=== PATIENT | female | born 1995 | race Caucasian/White ===

== ENCOUNTER 2016-06-19 08:00 | Outpatient (CLI) | payer MEDICAID | END 2016-06-19 23:59 | disposition home or self-care (01) | DX: Z36 Encounter for antenatal screening of mother (principal) ==

== ENCOUNTER 2016-06-30 11:49 | Outpatient (CLI) | payer MEDICAID | END 2016-06-30 14:48 | disposition home or self-care (01) | DX: O36.62X0 Maternal care for excessive fetal growth, second trimester, not applicable or unspecified (principal); O99.89 Other specified diseases and conditions complicating pregnancy, childbirth and the puerperium; R52 Pain, unspecified; Z3A.38 38 weeks gestation of pregnancy ==

== ENCOUNTER 2016-07-03 13:59 | Outpatient (CLI) | payer MEDICAID | END 2016-07-03 15:30 | disposition home or self-care (01) | DX: O16.3 Unspecified maternal hypertension, third trimester (principal); Z3A.38 38 weeks gestation of pregnancy ==

== ENCOUNTER 2016-07-08 23:02 | Outpatient (CLI) | payer MEDICAID | END 2016-07-09 00:20 | disposition home or self-care (01) | DX: O62.2 Other uterine inertia (principal); Z3A.39 39 weeks gestation of pregnancy ==

== ENCOUNTER 2016-07-13 03:57 | Inpatient (IN) | payer MEDICAID ==
[2016-07-13] MEDS ORDERED: ONDANSETRON 4 MG/2 ML VIAL IVP PRN ×2 (04:49→10:11)
[2016-07-13] MEDS ORDERED: fentaNYL 100 MCG/2 ML VIAL IVP PRN (04:49)
[2016-07-13] MEDS ORDERED: LACTATED RINGERS 1,000 ML IV SCH (05:00)
[2016-07-13] MEDS ORDERED: PENICILLIN G POTASSIUM 5,000,000 UNIT in SODIUM CHLORIDE 0.9% MINIBAG 100 ML IV SCH (05:45)
[2016-07-13] MEDS ORDERED: SODIUM CHLORIDE FLUSH 0.9% 10 ML SYRINGE IVP ONE ×3 (06:54→23:19)
[2016-07-13] MEDS ORDERED: SUFENTA/BUPIV 0.4 MCG/0.0625% 150 ML EP ONE (09:59)
[2016-07-13] MEDS ORDERED: NALOXONE 0.4 MG/ML VIAL IVP PRN (10:11)
[2016-07-13] MEDS ORDERED: NALBUPHINE 20 MG/ML AMP IVP PRN (10:11)
[2016-07-13] MEDS ORDERED: SUFENTA/BUPIV 0.4 MCG/0.0625% EPIDURAL 150 ML EP PRN (10:11)
[2016-07-13] MEDS ORDERED: METOCLOPRAMIDE 10 MG/2 ML VIAL IVP PRN (10:11)
[2016-07-13] MEDS ORDERED: diphenhydrAMINE INJ 50 MG/ML VIAL IVP PRN (10:11)
[2016-07-13] MEDS ORDERED: LACTATED RINGERS 500 ML IV ONE (10:11)
[2016-07-13] MEDS ORDERED: ePHEDrine 50 MG/ML AMP IVP PRN (10:11)
[2016-07-13] MEDS ORDERED: SUFENTA/BUPIV 0.4 MCG/0.0625% 150 ML EP PRN (10:26)
[2016-07-13] MEDS: PENICILLIN G POTASSIUM 2,500,000 UNIT in SODIUM CHLORIDE 0.9% 100ML 100 ML IV SCH ×3 (11:22→19:45)
[2016-07-13] MEDS ORDERED: OXYTOCIN/LACTATED RINGERS 250 ML IV SCH (12:00)
[2016-07-13] MEDS ORDERED: LIDOCAINE 1% 50 ML MDV ONE (16:11)
[2016-07-13] MEDS ORDERED: diphenhydrAMINE 25 MG CAPSULE PO PRN (20:34)
[2016-07-13] MEDS ORDERED: HYDROcod/ACETAM 5/325 MG TABLET PO PRN (20:34)
[2016-07-13] MEDS ORDERED: HYDROCORTISONE/PRAMOXINE 10 GM PR PRN (20:34)
[2016-07-13] MEDS ORDERED: MEASLES,MUMPS & RUBELLA VACC 0.5 ML VIAL SUBQ ONE (20:34)
[2016-07-13] MEDS ORDERED: OXYTOCIN/LACTATED RINGERS 250 ML IV ONE (20:34)
[2016-07-13] MEDS: IBUPROFEN 600 MG TABLET PO SCH (21:18)
[2016-07-13] MEDS: DOCUSATE SODIUM 100 MG CAPSULE PO SCH (21:18)
[2016-07-14] MEDS: IBUPROFEN 600 MG TABLET PO SCH ×4 (03:38→21:40)
[2016-07-14] MEDS: DOCUSATE SODIUM 100 MG CAPSULE PO SCH ×2 (09:37→21:41)
[2016-07-15] MEDS: IBUPROFEN 600 MG TABLET PO SCH ×2 (03:30→09:11)
[2016-07-15] MEDS: DOCUSATE SODIUM 100 MG CAPSULE PO SCH (09:11)
== END 2016-07-15 11:20 | disposition home or self-care (01) | DRG 775 ==
PROC: 10E0XZZ Delivery of Products of Conception, External Approach (ICD-10-PCS; principal; 2016-07-13)
PROC: 10907ZC Drainage of Amniotic Fluid, Therapeutic from Products of Conception, Via Natural or Artificial Opening (ICD-10-PCS; 2016-07-13)
DX: O99.824 Streptococcus B carrier state complicating childbirth (principal); Z68.42 Body mass index [BMI] 45.0-49.9, adult; O99.214 Obesity complicating childbirth; E66.01 Morbid (severe) obesity due to excess calories; Z37.0 Single live birth; Z3A.40 40 weeks gestation of pregnancy; O99.344 Other mental disorders complicating childbirth; F43.10 Post-traumatic stress disorder, unspecified; F41.9 Anxiety disorder, unspecified; O26.03 Excessive weight gain in pregnancy, third trimester; F32.9 Major depressive disorder, single episode, unspecified; Z87.891 Personal history of nicotine dependence; Z88.2 Allergy status to sulfonamides; O13.4 Gestational [pregnancy-induced] hypertension without significant proteinuria, complicating childbirth

== ENCOUNTER 2018-09-22 08:00 | Outpatient (CLI) | payer MEDICAID | END 2018-09-22 23:59 | disposition home or self-care (01) | LOC: LAB.WCP 08:00 | PROVIDERS: ATTEND Family Medicine | DX: Z33.1 Pregnant state, incidental (principal) | CPT/HCPCS: 36415; 84702 ==

== ENCOUNTER 2018-09-22 08:00 | Outpatient (CLI) | payer MEDICAID | END 2018-09-22 23:59 | disposition home or self-care (01) | LOC: LAB.R 08:00 | PROVIDERS: ATTEND Family Medicine | DX: N39.0 Urinary tract infection, site not specified (principal); Z33.1 Pregnant state, incidental | CPT/HCPCS: 36415; 84702; 87086 ==

== ENCOUNTER 2018-09-24 10:16 | Outpatient (CLI) | payer MEDICAID ==
--- NOTE | 2018-09-24 12:12 | Ultrasound Report ---
Reason: , PELVIC PERINEAL PAIN, R/O ECTOPIC Procedure Date: 09/24/2018 Accession Number: [id number] / [id number] Procedure: US - OB First Trimester CPT Code: FULL RESULT: EXAM: FIRST TRIMESTER OBSTETRIC ULTRASOUND (Less than 11 weeks) EXAM DATE: 09/24/2018 11:44 AM. CLINICAL HISTORY: , pelvic perineal pain, rule out ectopic. LMP: 08/08/2018. COMPARISONS: OB F/U OR REPEAT 06/30/2016 1:52 PM OB F/U OR REPEAT 03/26/2016 9:33 AM. TECHNIQUE: Transabdominal and transvaginal ultrasound examination with static image documentation. CLINICAL DATES: EGA 6 weeks 5 days with DAREN 05/15/2019 based on LMP. ASSESSMENT: Gestational Sac: Single intrauterine. Mean gestational sac diameter: 6.8 mm = less than 5 weeks. Embryo: CRL (crown-rump length): Not seen Cardiac activity: Not seen Yolk sac: 1.5 mm. Amniotic fluid: Not accurately assessed at this gestational age. Early placenta: Not visible at this gestational age. Other: No perigestational fluid collection demonstrated. MATERNAL STRUCTURES: Uterus: Anteverted. Unremarkable. Cervix: Closed. Right Ovary/Adnexa: The ovary measures 4.6 x 2.0 x 3.9 cm, volume 18.3 cc. Within the right ovary is a cyst with thick rim, possibly corpus luteal cyst. Near the ovary but separate from the ovary is a 10.9 x 5.9 x 8.9 cm simple appearing cyst, adnexal. Left Ovary/Adnexa: The ovary measures 4.0 x 2.2 x 3.2 cm, volume 14.7 cc. Unremarkable. Free Fluid: None. Other: None. IMPRESSION: 1. of unknown location. Intrauterine fluid collection, which could represent a gestational sac, cyst, or focal fluid. If this is a gestational sac, size would correspond to gestational age of less than 5 weeks. Recommend close clinical follow-up and correlation with serial beta hCG, and follow-up ultrasound if indicated. 2. Large simple appearing right adnexal cyst, reportedly known. RADIA
== END 2018-09-24 10:17 | disposition home or self-care (01) ==
LOC: DI 10:16
PROVIDERS: ATTEND Family Medicine
DX: R10.2 Pelvic and perineal pain (principal); N94.89 Other specified conditions associated with female genital organs and menstrual cycle
CPT/HCPCS: 76801

== ENCOUNTER 2018-09-29 08:00 | Outpatient (CLI) | payer MEDICAID | END 2018-09-29 08:01 | disposition home or self-care (01) | LOC: LAB.WCP 08:00 | PROVIDERS: ATTEND Family Medicine | DX: Z33.1 Pregnant state, incidental (principal) | CPT/HCPCS: 36415; 84702 ==

== ENCOUNTER 2018-10-12 08:00 | Outpatient (CLI) | payer MEDICAID ==
[2018-10-12 16:54] LABS: BILIRUBIN,URINE NEGATIVE (NEGATIVE); GLUCOSE, URINE (UA) NEGATIVE (NEGATIVE); KETONES,URINE (UA) NEGATIVE (NEGATIVE); LEUKOCYTE ESTERASE, URINE SMALL (NEGATIVE); NITRITE,URINE NEGATIVE (NEGATIVE); OCCULT BLOOD,URINE NEGATIVE (NEGATIVE); PH,URINE 6.5 PH (5.0-7.5); PROTEIN,URINE NEGATIVE (NEGATIVE); UROBILINOGEN,URINE 0.2 (NORMAL) E.U./dL (NORMAL)
[2018-10-12 16:59] LABS: CLARITY,URINE CLEAR (CLEAR)
[2018-10-12 17:03] LABS: BACTERIA,URINE Rare /HPF (None Seen); RBC,URINE None Seen /HPF (0-5); SQUAMOUS EPITHELIAL CELL,UR MOD Squamous (<= Few)
== END 2018-10-12 23:59 | disposition home or self-care (01) ==
LOC: LAB.R 08:00
PROVIDERS: ATTEND Obstetrics & Gynecology
DX: Z34.90 Encounter for supervision of normal pregnancy, unspecified, unspecified trimester (principal)
CPT/HCPCS: 81001; 87086

== ENCOUNTER 2018-10-19 17:11 | Outpatient (CLI) | payer MEDICAID ==
--- NOTE | 2018-10-20 17:25 | Ultrasound Report ---
Reason: UTERINE SIZE DATE DISCREPANCY,ANTEPARTUM,UNSPECIFI Procedure Date: 10/19/2018 Accession Number: [id number] / [id number] Procedure: US - OB First Trimester CPT Code: FULL RESULT: EXAM: FIRST TRIMESTER OBSTETRIC ULTRASOUND (Less than 11 weeks) EXAM DATE: 10/19/2018 05:19 PM. CLINICAL HISTORY: Uterine size/date discrepancy, antepartum, unspecified. LMP: 08/08/2018, 10 weeks 2 days. COMPARISONS: OB FIRST TRIMESTER 09/24/2018 10:48 AM OB F/U OR REPEAT 06/30/2016 1:52 PM. TECHNIQUE: Transabdominal and transvaginal ultrasound examination with static image documentation. FINDINGS: Gestational Sac: An intrauterine fluid-filled sac contains both an embryo and yolk sac. Embryo: CRL (crown-rump length) measures 20 mm corresponding to an estimated gestational age of 8 weeks 3 days. Heart Rate: 171 beats per minute. Placenta: Not visible at this gestational age. Amniotic fluid: Not accurately assessed at this gestational age. Uterus: Unremarkable anteverted appearance. Cervix: Closed. Right Ovary: Volume 279 cc. Normal echotexture and blood flow. Right adnexal cystic mass again noted which appears grossly simple, 11.2 x 6.2 x 7.9 cm. No thick vascular nodules or septations seen. Blood flow documented to the adjacent normal-appearing ovarian parenchyma. Left Ovary: Volume 7 cc. Normal echotexture and blood flow. Free Fluid: None. Other: None. IMPRESSION: 1. Single live intrauterine at 8 weeks 3 days by crown-rump length -- for an estimated delivery date of 05/28/2019. 2. Persistent large 11 cm right adnexal cyst. This can be followed up with on future obstetric scans. RADIA
== END 2018-10-19 17:12 | disposition home or self-care (01) ==
LOC: DI 17:11
PROVIDERS: ATTEND Obstetrics & Gynecology
DX: O26.849 Uterine size-date discrepancy, unspecified trimester (principal); O34.81 Maternal care for other abnormalities of pelvic organs, first trimester; N94.89 Other specified conditions associated with female genital organs and menstrual cycle; Z3A.08 8 weeks gestation of pregnancy
CPT/HCPCS: 76801; 76817

== ENCOUNTER 2019-01-13 13:45 | Outpatient (CLI) | payer MEDICAID ==
--- NOTE | 2019-01-18 09:55 | Ultrasound Report ---
Reason: ENCOUNTER FOR OTHER SPECIFIED SCREENING Procedure Date: 01/13/2019 Accession Number: [id number] / [id number] Procedure: US - OB Detailed Eval CPT Code: FULL RESULT: EXAM: COMPLETE OBSTETRICAL ULTRASOUND EXAM DATE: 01/13/2019 04:27 PM. CLINICAL HISTORY: anatomic survey. COMPARISON: OB DETAILED EVAL 02/26/2016 12:55 PM OB FIRST TRIMESTER 10/19/2018 5:19 PM OB FIRST TRIMESTER 09/24/2018 10:48 AM. TECHNIQUE: Real-time sonographic evaluation of the fetus performed by the glue mill operator. Multiple medical customer service representative static images were saved for review. DATING: Established EGA 20 weeks 5 days with DAREN 05/28/2019 based on ultrasound of 10/19/2018. EGA 20 weeks 3 days with DAREN 05/30/2019 based on the current ultrasound. GENERAL EVALUATION: Chopra . Cardiac activity: 144 bpm. movement: Present Presentation: Cephalic. Placenta: Anterior position. No evidence for previa. Umbilical cord: 3 vessel cord. Central placental cord origin. Amniotic fluid: Subjectively normal. MVP 5 cm. BIOMETRY Bi-Parietal Diameter (BPD): 4.8 cm, 20 weeks 4 days Head Circumference (HC): 18.5 cm, 20 weeks 6 days Abdominal Circumference (AC): 15.2 cm, 20 weeks 3 days Femur Length (FL): 3.5 cm, 21 weeks 1 day Estimated Weight: 374 g, 47th percentile for 20 weeks 5 days. ANATOMY Assessment of anatomy is limited by position and maternal body habitus. The intracranial structures, profile, 4 chamber heart, stomach, abdominal wall and cord insertion, diaphragm, kidneys, bladder, and extremities were seen. Grossly no abnormalities are identified. Detailed assessment of facial structures, spine, and outflow tracts not well seen. Suggest follow-up ultrasound in 2-3 weeks for reassessment. MATERNAL STRUCTURES Uterus: Unremarkable. Cervix: Long and closed. Transabdominal length 4.3 cm. Right ovary/adnexa: 11.6 x 5 x 9.7 cm cyst present, previously noted. Left ovary/adnexa: Unremarkable. Free fluid: None. IMPRESSION: 1. Chopra intrauterine with gestational age 20 weeks 5 days based on ultrasound of 10/19/2018.. 2. Estimated weight is within expected limits for assigned dating. 3. Limited anatomic survey. Suggest follow-up ultrasound in 2-3 weeks as detailed above. RADIA
== END 2019-01-13 13:46 | disposition home or self-care (01) ==
LOC: DI 13:45
PROVIDERS: ATTEND Obstetrics & Gynecology
DX: Z34.90 Encounter for supervision of normal pregnancy, unspecified, unspecified trimester (principal)
CPT/HCPCS: 76811

== ENCOUNTER 2019-02-05 11:02 | Outpatient (CLI) | payer MEDICAID ==
--- NOTE | 2019-02-07 10:13 | Ultrasound Report ---
Reason: SUPERV OF NORMAL , INCOMP FAS Procedure Date: 02/05/2019 Accession Number: [id number] / [id number] Procedure: US - OB F/U or Repeat CPT Code: FULL RESULT: EXAM: FOLLOW-UP OBSTETRICAL ULTRASOUND EXAM DATE: 02/05/2019 12:13 PM. CLINICAL HISTORY: SUPERV OF NORMAL , INCOMP FAS. COMPARISON: OB F/U OR REPEAT 06/30/2016 1:52 PM OB DETAILED EVAL 01/13/2019 2:32 PM. TECHNIQUE: Real-time sonographic evaluation of the fetus performed by the web assistant. Additional transvaginal imaging to more accurately evaluate cervical length/placental position/etc. Multiple equal opportunity representative static images were saved for review. DATING: Established EGA 24 weeks 0 days with DAREN 05/28/2019 based on stated dating. GENERAL EVALUATION Chopra . Cardiac activity: 145 bpm. movement: Visualized. Presentation: Cephalic. Placenta: Anterior position. Amniotic fluid: Normal. MONIQUE 11.0 cm. MVP 3.5 cm. ANATOMY The nose lips, spine, LVOT and RVOT are visualized and unremarkable MATERNAL STRUCTURES Right ovarian cyst 10.6 x 7.4 x 8.9 cm again visualized previously 11.6 x 5 x 9.7 cm IMPRESSION: 1. Hcopra live intrauterine with gestational age 24 weeks 0 days based on stated dating. 2. Follow-up shows normal nose and lips, spine, LVOT and RVOT 3. Right ovarian cyst 10.6 cm again visualized RADIA
== END 2019-02-05 11:03 | disposition home or self-care (01) ==
LOC: DI 11:02
PROVIDERS: ATTEND Obstetrics & Gynecology
DX: O34.82 Maternal care for other abnormalities of pelvic organs, second trimester (principal); N83.201 Unspecified ovarian cyst, right side; Z3A.24 24 weeks gestation of pregnancy
CPT/HCPCS: 76816

== ENCOUNTER 2019-03-10 11:26 | Outpatient (CLI) | payer MEDICAID ==
--- NOTE | 2019-03-10 18:00 | Ultrasound Report ---
Reason: UTERINE SIZE DATE DISCREPANCY ANTEPARTUM Procedure Date: 03/10/2019 Accession Number: [id number] / [id number] Procedure: US - OB F/U or Repeat CPT Code: FULL RESULT: EXAM: FOLLOW-UP OBSTETRICAL ULTRASOUND EXAM DATE: 03/10/2019 12:42 PM. CLINICAL HISTORY: UTERINE SIZE DATE DISCREPANCY ANTEPARTUM. COMPARISON: OB F/U OR REPEAT 02/05/2019 11:05 AM OB FIRST TRIMESTER 10/19/2018 5:19 PM OB DETAILED EVAL 01/13/2019 2:32 PM. TECHNIQUE: Real-time sonographic evaluation of the fetus performed by the manager federal. Multiple outbound call center representative static images were saved for review. DATING: Established EGA 28 weeks 5 days with DRAEN 05/28/2019 based on stated dating and first ultrasound of 10/19/2018. EGA 28 weeks 6 days with DAREN 05/27/2019 based on the current ultrasound. GENERAL EVALUATION Chopra . Cardiac activity: 131 bpm. movement: Present Presentation: Cephalic. Placenta: Anterior position. Amniotic fluid: Normal. MONIQUE 12.1 cm. MVP 4.1 cm. BIOMETRY Bi-Parietal Diameter (BPD): 7.3 cm, 29 weeks 1 day Head Circumference (HC): 26.9 cm, 29 weeks 3 days Abdominal Circumference (AC): 24.6 cm, 28 weeks 6 days Femur Length (FL): 5.2 cm, 28 weeks 0 days Estimated Weight: 1260 g, 34th percentile for 28 weeks 5 days. ANATOMY Not assessed today MATERNAL STRUCTURES Cervix 3.8 cm. IMPRESSION: 1. Chopra live intrauterine with gestational age 28 weeks 5 days based on first ultrasound. 2. Estimated weight is within expected limits for assigned dating. 3. Normal interval growth compared to 02/05/2019. RADIA
== END 2019-03-10 11:27 | disposition home or self-care (01) ==
LOC: DI 11:26
PROVIDERS: ATTEND Obstetrics & Gynecology
DX: O26.843 Uterine size-date discrepancy, third trimester (principal); Z3A.28 28 weeks gestation of pregnancy
CPT/HCPCS: 76816

== ENCOUNTER 2019-05-05 08:00 | Outpatient (CLI) | payer MEDICAID ==
[2019-05-06 19:45] LABS: TRICHOMONAS VAGINALIS DNA NEGATIVE (NEGATIVE)
== END 2019-05-05 23:59 | disposition home or self-care (01) ==
LOC: LAB.R 08:00
PROVIDERS: ATTEND Obstetrics & Gynecology
DX: Z36.89 Encounter for other specified antenatal screening (principal)
CPT/HCPCS: 87491; 87591; 87661; 87797

== ENCOUNTER 2019-05-13 10:52 | Outpatient (CLI) | payer MEDICAID ==
[2019-05-13 11:40] VITALS: BP 144/82
--- NOTE | 2019-05-25 12:03 | PROCEDURE REPORT ---
- HPI Current EDU 05/28/19 Gestation 37 Weeks and 6 Days 2 Para 1 Vital Signs Temperature 36.7 C 05/13/19 11:10 Heart Rate 111 H 05/13/19 11:10 Respiratory Rate 18 05/13/19 11:10 Blood Pressure 152/84 H 05/13/19 11:10 O2 Saturation 99 05/13/19 11:10 Temperature 36.7 C 05/13/19 11:10 Heart Rate 111 H 05/13/19 11:10 Respiratory Rate 18 05/13/19 11:10 Blood Pressure 144/82 H 05/13/19 11:40 O2 Saturation 99 05/13/19 11:10 - NST Procedure NST Procedure Start Date 05/13/19 Start Time 11:00 Stop Time 12:20 Vibroacoustic Stimulation Used No Patient States Movement Yes - Results and Plan Findings/Impression: reactive NST Plan: [facility]
== END 2019-05-13 12:25 | disposition home or self-care (01) ==
LOC: WFO 10:52 → FBP 10:59 → WFO 12:25
PROVIDERS: ATTEND Obstetrics & Gynecology
DX: O26.853 Spotting complicating pregnancy, third trimester (principal); Z3A.37 37 weeks gestation of pregnancy
CPT/HCPCS: 59025

== ENCOUNTER 2019-05-14 06:27 | Inpatient (IN) | payer MEDICAID ==
[2019-05-14] MEDS ORDERED: SODIUM CHLORIDE FLUSH 0.9% 10 ML SYRINGE IVP PRN ×2 (08:09→08:19)
[2019-05-14] MEDS ORDERED: AMPICILLIN 2 GM in SODIUM CHLORIDE 0.9% MINIBAG 100 ML IV ONE (08:19)
--- NOTE | 2019-05-14 08:27 | HISTORY & PHYSICAL EXAMINATION ---
Chief Complaint - Chief Complaint Chief Complaint: 23yo at 39+5 with SROM, early labor History of Present Illness - History of Present Illness HPI Comment/Other: 23yo at 39+5 weeks A+ GBS + who presents with contractions and SROM of clear fluid at 0530 today. Denied bleeding, n/v/f/c or dysuria, reports normal activity. complicated by maternal obesity, mild anemia, depression/anxiety PN labs: Rubella non-immune VDRL/HIVHep C NR Glucola 119 (early>>refused third trimester screen) GC/chlam neg History - Past Medical History Respiratory: reports: None Neuro: reports: None Endocrine/Autoimmune: reports: None GI: reports: None QUILT SEWER: reports: Ovarian cysts : reports: None Psych: reports: Depression, Anxiety MRSA Hx?: Yes - Family & Social History Living arrangement: At home Living Situation: With spouse/s.o. - Substance History Use: Uses substance without health or social issues: NONE - POLST Patient has POLST: No POLST Status: Full Code Meds/Allgy - Home Medications Home Medications: Ambulatory Orders Medication Instructions Recorded Confirmed Pnv No.95/Ferrous Fum/Folic AC 1 05/14/19 [ Formula Tablet] - Allergies Allergies/Adverse Reactions: Allergies Allergy/AdvReac Type Severity Reaction Status Date / Time Sulfa (Sulfonamide Allergy Intermediate Hives Verified 05/14/19 08:36 Antibiotics) Review of Systems - All Other Systems All Other Systems: reports: Other (Neg except as noted above) Exam - Vital Signs Vital Signs: Vital Signs x48h Temp Pulse Resp BP Pulse Ox 05/14/19 06:50 145/75 H 05/14/19 06:44 98.1 F 112 H 22 150/83 H 99 - Physical Exam General Appearance: positive: Mild distress Neck: positive: Nml inspection Respiratory: positive: Breath sounds nml Cardiovascular: positive: Regular rate & rhythm, No murmur Abdomen: positive: Non-tender, Other (Gravid, obese, S=D) Extremities: positive: Pedal edema (Trace) Neurologic/Psychiatric: positive: Oriented x3 Comments/Other: Vertex by scan Copious clear fluid on spec exam. Cervix visually partially effaced/ 3-4cm FH initially category 1> subsequently incomplete tracing, suspect maternal. Conclusion/Plan - Other Other Results/Comments: 23yo at 39+5 GBS+ A+ with labor SROM. Vertex by scan Rubella non-immune Planning nitrous only for labor. Undecided about contraception. CBC, T&S Ampicillin Expect
[2019-05-14 08:58] LABS: BASOPHILS # (AUTO) 0.1 10^3/uL (0.0-0.1); BASOPHILS % (AUTO) 0.3 %; EOSINOPHILS # (AUTO) 0.1 10^3/uL (0.0-0.7); EOSINOPHILS % (AUTO) 0.5 %; HGB - HEMOGLOBIN 11.5 g/dL (12.0-16.0); LYMPHOCYTES # (AUTO) 2.4 10^3/uL (1.5-3.5); LYMPHOCYTES % (AUTO) 9.1 %; MEAN CORPUSCULAR HEMOGLOBIN 30.1 pg (27.0-31.0); MEAN CORPUSCULAR VOLUME 91.1 fL (81.0-99.0); MEAN PLATELET VOLUME 11.2 fL (7.9-10.8); MONOCYTES % (AUTO) 7.7 %; NEUTROPHILS % (AUTO) 81.2 %; PLT - PLATELET COUNT 302 10^3/uL (130-450); RED BLOOD COUNT 3.82 10^6/uL (4.20-5.40); RED CELL DISTRIBUTION WIDTH 13.6 % (12.0-15.0); WHITE BLOOD COUNT 25.8 x10^3/uL (4.8-10.8)
[2019-05-14] MEDS ORDERED: LACTATED RINGERS 1,000 ML IV SCH (09:00)
[2019-05-14] MEDS ORDERED: SODIUM CHLORIDE FLUSH 0.9% 10 ML SYRINGE IVP SCH ×2 (09:00)
[2019-05-14] MEDS: LACTATED RINGERS 1,000 ML IV SCH ×2 (09:06→10:50)
[2019-05-14 09:30] LABS: PLATELET MORPHOLOGY NORMAL APPEARANCE (NORMAL)
[2019-05-14 09:31] LABS: PLATELET ESTIMATE, MANUAL NORMAL (130-450,000) (NORMAL); RBC MORPHOLOGY (MULTIPLE) NORMAL APPEARANCE (NORMAL)
[2019-05-14] MEDS ORDERED: ROPIVACAINE 0.2% 200 MG/100 ML BAG EP ONE (09:48)
--- NOTE | 2019-05-14 09:59 | PROVIDER PROGRESS NOTE ---
Subjective - Prog Note Date Prog Note Date: 05/14/19 Prog Note Time: 09:58 - Subjective Subjective: Very uncomfortable, requesting epidural. Fluid bolus initiated. Will call anrsthesia. FH stable, pt otherwise stable. Objective - Vital Signs/Intake & Output Vital Signs: Vital Signs x48h Temp Pulse Resp BP Pulse Ox 05/14/19 06:50 145/75 H 05/14/19 06:44 98.1 F 112 H 22 150/83 H 99 - Lab Results Fish Bones: 05/14/19 08:49 Other Labs: Lab Results x24hrs 05/14/19 05/14/19 Range/Units 08:49 07:35 WBC 25.8 H (4.8-10.8) x10^3/uL RBC 3.82 L (4.20-5.40) 10^6/uL Hgb 11.5 L (12.0-16.0) g/dL Hct 34.8 L (37.0-47.0) % MCV 91.1 (81.0-99.0) fL MCH 30.1 (27.0-31.0) pg MCHC 33.0 (32.0-36.0) g/dL RDW 13.6 (12.0-15.0) % Plt Count 302 (130-450) 10^3/uL MPV 11.2 H (7.9-10.8) fL Neut # (Auto) 21.0 H (1.5-6.6) 10^3/uL Lymph # (Auto) 2.4 (1.5-3.5) 10^3/uL [place] # (Auto) 2.0 H (0.0-1.0) 10^3/uL Eos # (Auto) 0.1 (0.0-0.7) 10^3/uL Baso # (Auto) 0.1 (0.0-0.1) 10^3/uL Absolute Nucleated RBC 0.00 x10^3/uL Nucleated RBC % 0.0 /100WBC Manual Slide Review Indicated Platelet Estimate NORMAL (130-450,000) (NORMAL) Platelet Morphology NORMAL APPEARANCE (NORMAL) RBC Morph Micro Appear NORMAL APPEARANCE (NORMAL) Blood Type A POSITIVE Antibody Screen NEGATIVE
--- NOTE | 2019-05-14 10:21 | PROVIDER PROGRESS NOTE ---
Subjective - Prog Note Date Prog Note Date: 05/14/19 Prog Note Time: 10:16 - Subjective Subjective: Epidural in place, more comfortable. Flores placed. VSS afeb Category 1 tracing. Contractions not tracing well, seem q2-3 cx 8cm/90/+1 A/P Stable. Good progress. Expect Objective - Vital Signs/Intake & Output Vital Signs: Vital Signs x48h Temp Pulse Resp BP Pulse Ox 05/14/19 06:50 145/75 H 05/14/19 06:44 98.1 F 112 H 22 150/83 H 99 - Lab Results Fish Bones: 05/14/19 08:49 Other Labs: Lab Results x24hrs 05/14/19 05/14/19 Range/Units 08:49 07:35 WBC 25.8 H (4.8-10.8) x10^3/uL RBC 3.82 L (4.20-5.40) 10^6/uL Hgb 11.5 L (12.0-16.0) g/dL Hct 34.8 L (37.0-47.0) % MCV 91.1 (81.0-99.0) fL MCH 30.1 (27.0-31.0) pg MCHC 33.0 (32.0-36.0) g/dL RDW 13.6 (12.0-15.0) % Plt Count 302 (130-450) 10^3/uL MPV 11.2 H (7.9-10.8) fL Neut # (Auto) 21.0 H (1.5-6.6) 10^3/uL Lymph # (Auto) 2.4 (1.5-3.5) 10^3/uL [place] # (Auto) 2.0 H (0.0-1.0) 10^3/uL Eos # (Auto) 0.1 (0.0-0.7) 10^3/uL Baso # (Auto) 0.1 (0.0-0.1) 10^3/uL Absolute Nucleated RBC 0.00 x10^3/uL Nucleated RBC % 0.0 /100WBC Manual Slide Review Indicated Platelet Estimate NORMAL (130-450,000) (NORMAL) Platelet Morphology NORMAL APPEARANCE (NORMAL) RBC Morph Micro Appear NORMAL APPEARANCE (NORMAL) Blood Type A POSITIVE Antibody Screen NEGATIVE
[2019-05-14] MEDS ORDERED: LIDOCAINE-MPF 1% 30 ML VIAL ONE (10:24)
[2019-05-14] MEDS ORDERED: OXYTOCIN/DEXTROSE 5 % 30 UNIT/500 ML BAG IV ONE (10:24)
--- NOTE | 2019-05-14 10:24 | DISCHARGE SUMMARY ---
"Discharge Summary Admit Date: 05/14/19 Discharge Date: 05/15/19 Code Status: Attempt Resuscitation Condition at Discharge: Good Discharge Disposition: 01 Home, Self Care - DIAGNOSES Admission Diagnoses: at 39 5/7 weeks with SROM Morbid obesity Borderline hypertension MMR refused not immune - HPI History of Present Illness: 23yo now 2 who presented in early labor following SROM of clear liquid the day of admission. - CONSULTS | PROCEDURES Procedures: - HOSPITAL COURSE Hospital Course: An epidural was placed and she progressed in labor to full dilation and was delivered of a 3333gm female apgars 7/9 on 05/14. There were no lacerations. EBL 200cc. Of note, she only received one dose of ampicillin for GBS prophylaxis. Her course was notable for one episode of systolic hypertension (154). She remained asymptomatic. Other BPs were in the normal to borderline range 120-130's/70-80's. Lochia was scant, breast feeding with help. She was counseled and is undecided about contraception. She refused vaccines for herself and baby. - ALLERGIES Allergies/Adverse Reactions: Allergies Allergy/AdvReac Type Severity Reaction Status Date / Time Sulfa (Sulfonamide Allergy Intermediate Hives Verified 05/14/19 08:36 Antibiotics) - MEDICATIONS Home Medications: Ambulatory Orders Medication Instructions Recorded Confirmed Pnv No.95/Ferrous Fum/Folic AC 1 05/14/19 [ Formula Tablet] Acetaminophen [Tylenol] 650 mg PO Q6HR PRN tablet 05/15/19 - PHYSICAL EXAM AT DISCHARGE General Appearance: positive: No acute distress Eyes Bilateral: positive: Normal inspection Respiratory: positive: No respiratory distress, Breath sounds nml Cardiovascular: positive: Regular rate & rhythm Abdomen: positive: Non-tender, No distention, Other (Fundus firm below umbilicus) - LABS Result Diagrams: 05/14/19 08:49 - FOLLOW UP Follow Up: Follow up 1 week for blood pressure check and support."
[2019-05-14] MEDS ORDERED: ROPIVACAINE 0.2% 200 MG/100 ML BAG EP PRN (10:25)
[2019-05-14] MEDS ORDERED: NALOXONE 0.4 MG/ML VIAL IVP PRN (10:25)
[2019-05-14] MEDS ORDERED: NALBUPHINE 10 MG/ML AMP IVP PRN (10:25)
[2019-05-14] MEDS ORDERED: LACTATED RINGERS 500 ML IV ONE (10:25)
[2019-05-14] MEDS ORDERED: METOCLOPRAMIDE 10 MG/2 ML VIAL IVP PRN (10:25)
[2019-05-14] MEDS ORDERED: ePHEDrine 50 MG/ML VIAL IVP PRN (10:25)
[2019-05-14] MEDS ORDERED: ONDANSETRON 4 MG/2 ML VIAL IVP PRN (10:25)
[2019-05-14] MEDS ORDERED: diphenhydrAMINE INJ 50 MG/ML VIAL IVP PRN (10:25)
--- NOTE | 2019-05-14 10:29 | ANESTHESIA ---
Pre-Anesthesia VS, & Labs - Diagnosis term , active labor - Procedure labor epidural Vital Signs: Temp Pulse Resp BP Pulse Ox 36.7 C 112 H 22 145/75 H 99 05/14/19 06:44 05/14/19 06:44 05/14/19 06:44 05/14/19 06:50 05/14/19 06:44 Height 5 ft 6 in Weight (kg) 119.748 kg Body Mass Index 41.0 - NPO Other (clears from now until delivery) - Is Patient ?: Yes - Lab Results Current Lab Results: Laboratory Tests 05/14/19 08:49: WBC 25.8 H, RBC 3.82 L, Hgb 11.5 L, Hct 34.8 L, MCV 91.1, MCH 30.1, MCHC 33.0, RDW 13.6, Plt Count 302, MPV 11.2 H, Neut # (Auto) 21.0 H, Lymph # (Auto) 2.4, [place] # (Auto) 2.0 H, Eos # (Auto) 0.1, Baso # (Auto) 0.1, Absolute Nucleated RBC 0.00, Nucleated RBC % 0.0, Manual Slide Review Indicated, Platelet Estimate NORMAL (130-450,000), Platelet Morphology NORMAL APPEARANCE, RBC Morph Micro Appear NORMAL APPEARANCE 05/14/19 07:35: Blood Type A POSITIVE, Antibody Screen NEGATIVE Fish Bones: 05/14/19 08:49 Home Medications and Allergies Home Medications: Ambulatory Orders Pnv No.95/Ferrous Fum/Folic AC [ Formula Tablet] 1 05/14/19 Active Medications Diphenhydramine HCl (Benadryl Inj) 12.5 - 25 mg IVP Q6HR PRN PRN Reason: ITCHING Ephedrine Sulfate () 5 mg IVP Q5M PRN PRN Reason: For SBP<100;give until SBP>100 Lactated Ringer's (Lr) 1,000 mls @ 150 mls/hr IV .Q6H40M ALPESH Last Admin: 05/14/19 09:06 Dose: 150 mls/hr Lactated Ringer's (Lr) 500 mls @ 999 mls/hr IV ONCE ONE Stop: 05/14/19 10:55 Ropivacaine (Naropin 0.2%) 200 mg in 100 mls @ 0 mls/hr EP PRN PRN; Protocol PRN Reason: PAIN Metoclopramide HCl (Reglan Inj) 10 mg IVP Q6HR PRN PRN Reason: Nausea / Vomiting Nalbuphine HCl (Nubain) 2.5 - 5 mg IVP Q4H PRN PRN Reason: ITCHING Naloxone HCl (Narcan) 0.1 mg IVP Q2M PRN PRN Reason: RR<8 Ondansetron HCl (Zofran Inj) 4 mg IVP Q6HR PRN PRN Reason: Nausea / Vomiting Sodium Chloride (Normal Saline Flush 0.9%) 10 ml IVP PRN PRN PRN Reason: NEEDED PER PROVIDER ORDERS Sodium Chloride (Normal Saline Flush 0.9%) 10 ml IVP 0100,0900,1700 ALPESH Pnv No.95/Ferrous Fum/Folic AC [ Formula Tablet] 1 05/14/19 Allergies/Adverse Reactions: Allergies Allergy/AdvReac Type Severity Reaction Status Date / Time Sulfa (Sulfonamide Allergy Intermediate Hives Verified 05/14/19 08:36 Antibiotics) Anes History & Medical History - Anesthetic History Anesthesia Complications: reports: No previous complications - Medical History Cardiovascular: reports: None Pulmonary: reports: None Gastrointestinal: reports: None Urinary: reports: None Neuro: reports: None Endocrine/Autoimmune: reports: None Smoking Status: Former smoker Exam General: Alert Dental: WNL Mallampati classification: II Thyromental Distance: greater than 6 cm Respiratory: Normal breath sounds Cardiovascular: Regular rate Mental/Cognitive Status: Alert/Oriented X3 Plan Anesthesia Type: Epidural Consent for Procedure(s) Verified and Reviewed: Yes Code Status: Attempt Resuscitation ASA classification: 2-Mild systemic disease Is this case an emergency?: No
[2019-05-14] MEDS ORDERED: OXYTOCIN/DEXTROSE 5 % 30 UNIT/500 ML BAG IV PRN (11:50)
--- NOTE | 2019-05-14 12:13 | DELIVERY NOTE ---
Delivery Note - Infant Delivery Method Infant Delivery Method: positive: Spontaneous vaginal delivery - Presentation Presentation: positive: Vertex, MALISSA - left occiput anterior - Nuchal Cord Nuchal Cord: positive: None - Anesthetic Anesthetic Type: - Amniotic Fluid Description Amniotic Fluid Description: positive: Clear - Episiotomy Type Episiotomy Type: positive: None - Laceration Laceration: positive: None - Delivery Outcome Delivery Outcome: positive: Livebirth - [place]: positive: Placed in direct skin contact with mother, Bulb syringe, Stimulated, [place] used [place] sex: positive: Female - Cord Cord: positive: 3 vessels - Placenta Placenta: positive: Intact, Spontaneous - Estimated Blood Loss Estimated Blood Loss (in cc): 200 - Post Delivery Events Post Delivery Events: positive: No post delivery events - Delivery Comments (Free Text/Narrative) Delivery Comments (Free Text/Narrative): of 3333gm female infant apgars 7/9 delivered from MALISSA at 11:58. Spontaneous cry. Placenta delivered with traction at 12:02 intact with normally inserted 3 vessel cord. Normal appearing. No lacerations of upper vagina perineum, rectum. EBL 200cc. I was present and performed the entire procedure.
[2019-05-14] MEDS ORDERED: HYDROCORTISONE 1% CREAM 28 GM TUBE PR PRN (12:16)
[2019-05-14] MEDS ORDERED: ACETAMINOPHEN 325 MG TABLET PO PRN (12:16)
[2019-05-14] MEDS ORDERED: WITCH HAZEL/GLYCERIN 1 PAD TOP PRN (12:16)
[2019-05-14] MEDS ORDERED: IBUPROFEN 600 MG TABLET PO PRN (12:16)
[2019-05-14] MEDS ORDERED: HYDROcod/ACETAM 5/325 MG TABLET PO PRN (12:16)
[2019-05-14] MEDS ORDERED: OXYTOCIN 10 UNIT/ML VIAL IM ONE (12:16)
[2019-05-14] MEDS ORDERED: MEASLES,MUMPS & RUBELLA VACC 0.5 ML VIAL SUBQ ONE (12:16)
[2019-05-14] MEDS ORDERED: diphenhydrAMINE 25 MG CAPSULE PO PRN (12:16)
[2019-05-14] MEDS ORDERED: DOCUSATE SODIUM 100 MG CAPSULE PO SCH (21:00)
[2019-05-15 12:44] VITALS: BP 134/81
--- NOTE | 2019-05-15 13:26 | Discharge Plan ---
Discharge Plan Problem Reviewed?: Yes Disposition: Home, Self Care Condition: Good Diet: Regular Activity Restrictions: Pelvic rest Shower Restrictions: No Driving Restrictions: No Health Concerns: Follow up in one week for blood pressure check No Smoking: If you smoke, Please STOP! Call for help. Follow-up with: Juliana Reza DO [Primary Care Provider] -
--- NOTE | 2019-05-15 13:35 | PROVIDER PROGRESS NOTE ---
Subjective - Prog Note Date Prog Note Date: 05/15/19 Prog Note Time: 13:32 - Subjective Subjective: PPD 1 No complaints. Scant lochia, ambulating, tolerating regular diet. Needing brest feeding support. Undecided about contraception. Counseled re options. VSS afeb BP with single high SBP 154. Otherwise in borderline range. Abd soft, non-tender. Fundus firm below umbilicus. A/P Stable. Counseled re vaccines, still refused. Counseled re LARCs etc. Plan DC today, baby still under obs for GBS not adequately treated. F/U 1 week for BP check and support Objective - Vital Signs/Intake & Output Vital Signs: Vital Signs x48h Temp Pulse Resp BP Pulse Ox 05/15/19 12:43 98.2 F 94 16 134/81 H 99 05/15/19 09:19 99.0 F 98 18 154/76 H 99 Intake & Output: Intake & Output 05/12/19 05/13/19 05/14/19 05/15/19 23:59 23:59 23:59 23:59 Intake Total 1093 Output Total 850 Balance 243 - Lab Results Fish Bones: 05/14/19 08:49
--- NOTE | 2019-05-15 14:36 | Labor Flowsheet ---
Labor Flowsheet Datetime Report Generated by CPN: 05/15/2019 14:35 Datetime: 05/15/2019 12:29 VITAL SIGNS NBP Sys/Lorena/Mean (mmHg): 134 : 81 : 92 Pulse: 94 LaborFlag: Labor Datetime: 05/14/2019 17:28 SpO2 (%): 99 Datetime: 05/14/2019 12:03 Vaginal Exam Comments: spont placenta Datetime: 05/14/2019 12:02 Patient Care Comments: spont placenta Datetime: 05/14/2019 11:58 Comments: female Medication Comments: pitocin bolu started after del of Datetime: 05/14/2019 11:57 MEDICATIONS Pitocin (milliunits): Started @ bolus Datetime: 05/14/2019 11:24 VAGINAL EXAM Dilatation (cm): 10.0 Datetime: 05/14/2019 11:10 PAIN Pain Presence: Intermittent Pain Type: Pressure Pain Assessment Comments: feeling increased pressure but declines VE, wants her to be here first Patient Position/Activity: Left Lateral Datetime: 05/14/2019 11:08 UTERINE ACTIVITY Monitor Mode: External Monitor Interventions for UA: [place] Adjusted Frequency (min): not picking up well, appear to be q 2-3 min Quality: Moderate Pattern: Normal: <= 5 Contractions in 10 Minutes Resting Tone (Palpate): Relaxed ASSESSMENT A Monitor Mode: Rubber Thread Spooler Interventions for FHR: Ultrasound Adjusted FHR Baseline Rate : 130 FHR Baseline Changes: No Baseline Change Variability: Moderate 6-25 bpm Accelerations: None Decelerations: Early Datetime: 05/14/2019 10:53 Contraction Comments: pt comfortable, sleeping Category: Category I Datetime: 05/14/2019 10:24 Pain Location: Perineum Pain Coping: Talking Through Contractions Comfort Measures: Breathing/Relaxation Datetime: 05/14/2019 10:14 Effacement (%): 90 Station: 1 Exam by: Dr. Erber Cervix, Consistency: Soft Datetime: 05/14/2019 10:05 Epidural Procedure Other: Pump Started Datetime: 05/14/2019 09:59 COMMUNICATION Communication: Provider at Bedside Provider Notified (Name): Dr. Erber Datetime: 05/14/2019 09:53 Epidural Procedure: Test Dose Datetime: 05/14/2019 09:50 Anesthesia Comments: local Datetime: 05/14/2019 09:47 PROCEDURE TIME OUT Procedure Verify: Correct Patient Identity; Correct Side and Site are Marked; Accurate Procedure Co nsent Form; Agreement on Procedure to be Done; Correct Patient Position Datetime: 05/14/2019 09:39 ANESTHESIA Anesthesia Plans: Epidural Epidural Positioning: Sitting Datetime: 05/14/2019 08:50 PATIENT CARE Oxygen Method: Room Air Datetime: 05/14/2019 08:45 Antibiotics: Ampicillin IV 2 Gm
== END 2019-05-15 13:30 | disposition home or self-care (01) | DRG 807 ==
LOC: WFO 06:27 → FBP 06:28 → WFO 08:08 → FBP 08:09
PROVIDERS: ADMIT Obstetrics & Gynecology; ATTEND Obstetrics & Gynecology
PROC: 10E0XZZ Delivery of Products of Conception, External Approach (ICD-10-PCS; principal; 2019-05-14)
DX: O99.344 Other mental disorders complicating childbirth (principal); Z37.0 Single live birth; O99.214 Obesity complicating childbirth; E66.01 Morbid (severe) obesity due to excess calories; O99.02 Anemia complicating childbirth; D64.9 Anemia, unspecified; F32.9 Major depressive disorder, single episode, unspecified; F41.9 Anxiety disorder, unspecified; O90.89 Other complications of the puerperium, not elsewhere classified; R03.0 Elevated blood-pressure reading, without diagnosis of hypertension; Z3A.39 39 weeks gestation of pregnancy
CPT/HCPCS: 36415; 85025; 86850; 86900; 86901; A9270; J7120; 99213

== ENCOUNTER 2020-02-05 16:41 | Outpatient (CLI) | payer MEDICAID ==
--- NOTE | 2020-02-06 07:32 | Ultrasound Report ---
PROCEDURE: Pelvic Complete INDICATIONS: H/O OV CYST TECHNIQUE: Real-time transabdominal scanning was performed of the pelvic organs, with image documentation. COMPARISON: First trimester pelvic ultrasound dated 10/19/2018 FINDINGS: Uterus: Uterus is normal in size at 8.5 x 4.1 x 5.1 cm cm. Endometrium measures 8 mm in combined th ickness. Ovaries: The right ovary measures 2.5 x 2.3 x 2.8 cm with a volume of 11.7 mL. The left ovary measur es 4.4 x 2.9 x 2.6 cm with a volume of 17.7 mL. Other: Superior to the uterus and adjacent to the right ovary, there is a large simple appearing cys t measuring 10.0 x 5.2 x 10.1 cm. Previously this cyst measured 11.2 x 6.2 x 7.9 cm on ultrasound fro m 10/19/2018 No free pelvic fluid. Limited scanning through the kidneys shows no hydronephrosis. IMPRESSION: Large simple appearing cyst superior to the uterus and abutting the right ovary measures 10.0 x 5.2 x 10.1 cm. Consider further evaluation with MRI if not previously obtained. Continued follow-up is rec ommended. Reviewed by: Joel Calhoun MD on 02/05/2020 6:23 PM PDT Approved by: Joel Calhoun MD on 02/05/2020 6:23 PM PDT Station ID: [id number]
== END 2020-02-05 16:42 | disposition home or self-care (01) ==
LOC: DI 16:41
PROVIDERS: ATTEND Obstetrics & Gynecology
DX: N83.201 Unspecified ovarian cyst, right side (principal); Z87.42 Personal history of other diseases of the female genital tract
CPT/HCPCS: 76856

== ENCOUNTER 2020-12-16 09:28 | Emergency (ER) | payer MEDICAID ==
[2020-12-16 09:35] VITALS: BP 133/69
[2020-12-16] MEDS ORDERED: LIDOCAINE 1%-EPI 1:100000 20 ML MDV SUBQ STA (10:08)
--- NOTE | 2020-12-16 10:08 | ED Physician Documentation ---
PD HPI LOWER EXT INJURY - Stated complaint Stated Complaint: L KNEE PX - Chief complaint Chief Complaint: Ext Problem - History obtained from History obtained from: Patient, Family - History of Present Illness PD HPI LOW EXT INJURY LOCATION: Left (Woke up yesterday with redness and swelling to the anterior left knee. 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: Ovarian cysts : None HEENT: None Psych: Depression, Post traumatic stress disorder Musculoskeletal: None Derm: None - Past Surgical History Past Surgical History: Yes - Present Medications Home Medications: Ambulatory Orders Medication Instructions Recorded Confirmed Doxycycline Hyclate 100 mg PO BID #14 12/16/20 HYDROcod/ACETAM 5/325 [[place] 5/325] 1 - 2 tab PO Q6H PRN #15 tablet 12/16/20 - Allergies Allergies/Adverse Reactions: Allergies Allergy/AdvReac Type Severity Reaction Status Date / Time Sulfa (Sulfonamide Allergy Intermediate Hives Verified 12/16/20 09:35 Antibiotics) - Social History Does the pt smoke?: No Smoking Status: Never smoker Does the pt drink ETOH?: No Does the pt have substance abuse?: Yes - Immunizations Immunizations are current?: Yes - POLST Patient has POLST: No POLST Status: Full Code PD ED PE NORMAL - Vitals Vital signs reviewed: Yes - General General: Alert and oriented X 3, No acute distress - Extremities Extremities: Other (She has what appears to be septic prepatellar bursitis of the left knee anteriorly with retained range of motion of the joint itself.) - Neuro Neuro: Alert and oriented X 3, Normal speech Results - Vitals Vitals: Vital Signs - 24 hr 12/16/20 09:33 Temperature 36.7 C Heart Rate 107 H Respiratory 16 Rate Blood Pressure 133/69 H O2 Saturation 100 Oxygen O2 Source Room air Procedures - General procedure General procedure: The left knee was prepped and draped, locally infiltrated with lidocaine. #11 blade was used to access the left prepatellar bursa and deloculated. Culture was obtained and quarter inch packing was inserted. Patient tolerated well. 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 That should have decent MRSA coverage. Note that she has a sulfa allergy. I am prescribing a short course of short-acting opioid pain medication for this patient. 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 I have discussed that the opioids are for short term therapy only, and will not be refilled from the ED. Departure - Departure Disposition: 01 Home, Self Care Clinical Impression: Bursitis, prepatellar, left Condition: Good Record reviewed to determine appropriate education?: Yes Instructions: ED Abscess IandD Prescriptions: Doxycycline Hyclate 100 mg PO BID #14 HYDROcod/ACETAM 5/325 [[place] 5/325] 1 - 2 tab PO Q6H PRN #15 tablet PRN Reason: Pain Comments: Follow-up with the orthopedist in 2 to 3 days for recheck and packing removal. Return for new or worsening symptoms. Call Thursday for an appointment. I am prescribing a short course of narcotic pain medication for you. These are potentially dangerous and addictive medications that should be used carefully. These medications may constipate you. Take an vmmx-[id number] stool softener (docusate) twice daily with plenty of water while taking these medications. If you go 24 hours without a bowel movement, take fzot-[id number] miralax, per package instructions. Do not drink or drive while taking these medications. If you received narcotic or sedating medications while in the emergency department, do not drive for 24 hours. Store this medication in a safe, secure place and out of reach of children. It is a violation of federal law to give or sell this medication to another person or to use in a manner other than prescribed. The ED will not refill narcotic prescriptions, including prescriptions lost or stolen. To dispose of unwanted medications: 1. [facility] at [address] in [place] has a medication drop box. They accept prescription medications (in pill form) Thursday through Thursday 9:00 a.m. to 5:00 p.m. 2. The [employer] [place] [employer] accepts prescription medications (in pill form only) for disposal year round. Call for more information. 3. Contact the [facility] for the next [facility] sponsored prescription drug collection event. , [phone], or x2020; Note that many narcotic pain relievers also contain Tylenol/acetaminophen. Please ensure that your total dose of acetaminophen from all sources does not exceed 3 g (3000 mg) per day. We are performing a wound culture, the results should be done in 48-72 hours. If antibiotic change is necessary we will call you. Return if worse in the meantime, especially if you develop increased pain, fevers, cannot keep down the medication. Otherwise follow-up with your physician in approximately 2-3 days.
[2020-12-16] MEDS ORDERED: cephALEXin 250 MG CAPSULE PO STA (10:09)
[2020-12-16] MEDS ORDERED: HYDROcod/ACETAM 5/325 MG TABLET PO STA (10:18)
[2020-12-16] MEDS ORDERED: DOXYCYCLINE 100 MG TABLET PO STA (10:18)
== END 2020-12-16 10:27 | disposition home or self-care (01) ==
LOC: ED 09:28
DX: M70.42 Prepatellar bursitis, left knee (principal)
CPT/HCPCS: 27301; 87070; 87181; 87205; 99283; A9270

== ENCOUNTER 2021-08-06 17:26 | Emergency (ER) | payer MEDICAID ==
[2021-08-06 17:51] LABS: BILIRUBIN,URINE NEGATIVE (NEGATIVE); GLUCOSE, URINE (UA) NEGATIVE (NEGATIVE); KETONES,URINE (UA) NEGATIVE (NEGATIVE); LEUKOCYTE ESTERASE, URINE SMALL (NEGATIVE); NITRITE,URINE NEGATIVE (NEGATIVE); OCCULT BLOOD,URINE LARGE (NEGATIVE); PH,URINE 7.5 PH (5.0-7.5); PROTEIN,URINE 100 mg/dL (NEGATIVE); UROBILINOGEN,URINE 0.2 (NORMAL) E.U./dL (NORMAL)
[2021-08-06 18:02] LABS: BACTERIA,URINE Few /HPF (None Seen); CLARITY,URINE HAZY (CLEAR); HCG UR QUAL NEGATIVE; RBC,URINE TNTC /HPF (0-5); SQUAMOUS EPITHELIAL CELL,UR RARE Squamous (<= Few); WBC,URINE >25 /HPF (0-5)
--- NOTE | 2021-08-06 18:08 | ED Physician Documentation ---
PD HPI FEMALE - Stated complaint Stated Complaint: FEMALE - Chief complaint Chief Complaint: UTI - History obtained from History obtained from: Patient - History of Present Illness Timing - onset: How many days ago (2) Timing - duration: Days (2) Pain level max: 4 Pain level max: 3 Associated symptoms: Dysuria, Urinary frequency - Additional information Additional information: Patient is a 25-year-old female who presents to the emergency department with dysuria and urinary frequency starting 2 days ago. Similar to prior UTIs. Nothing makes it better. Worse with urination. No fevers. No vomiting. Review of Systems Constitutional: denies: Fever, Chills Respiratory: denies: Cough GI: denies: Abdominal Pain, Nausea, Vomiting : reports: Dysuria, Frequency, Hesitancy. 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 : None HEENT: None Psych: Depression, Post traumatic stress disorder Musculoskeletal: None Derm: None - Past Surgical History Past Surgical History: No - Present Medications Home Medications: Ambulatory Orders Medication Instructions Recorded Confirmed Nitrofurantoin [Macrobid] 100 mg PO BID #10 cap 08/06/21 Phenazopyridine HCl [Pyridium] 200 mg PO TID PRN #6 tablet 08/06/21 - Allergies Allergies/Adverse Reactions: Allergies Allergy/AdvReac Type Severity Reaction Status Date / Time Sulfa (Sulfonamide Allergy Intermediate Hives Verified 08/06/21 17:32 Antibiotics) - Social History Does the pt smoke?: No Smoking Status: Former smoker Does the pt drink ETOH?: No Does the pt have substance abuse?: No - Immunizations Immunizations are current?: No Immunizations: Other immun not current - POLST Patient has POLST: No POLST Status: Full Code PD ED PE NORMAL - Vitals Vital signs reviewed: Yes - General General: Alert and oriented X 3, No acute distress, Well developed/nourished - HEENT HEENT: Moist mucous membranes - Neck Neck: Supple, no meningeal sign - Respiratory Respiratory: No respiratory distress, Clear bilaterally - Abdomen Abdomen: Soft, Non tender, Non distended - Back Back: No CVA TTP - Derm Derm: Warm and dry - Neuro Neuro: Alert and oriented X 3 - Psych Psych: Normal mood, Normal affect Results - Vitals Vitals: Vital Signs - 24 hr 08/06/21 17:32 Temperature 36.9 C Heart Rate 108 H Respiratory 16 Rate Blood Pressure 143/82 H O2 Saturation 99 Oxygen O2 Source Room air - Labs Labs: Laboratory Tests 08/06/21 17:42 Urine Color YELLOW Urine Clarity HAZY Urine pH 7.5 Ur Specific [place] 1.020 Urine Protein 100 H Urine Glucose (UA) NEGATIVE Urine Ketones NEGATIVE Urine Occult Blood LARGE H Urine Nitrite NEGATIVE Urine Bilirubin NEGATIVE Urine Urobilinogen 0.2 (NORMAL) Ur Leukocyte Esterase SMALL H Urine RBC TNTC H Urine WBC >25 H Ur Squamous Epith Cells RARE Squamous Urine Bacteria Few Ur Microscopic Review INDICATED Urine Culture Comments INDICATED Urine HCG, Qual NEGATIVE PD MEDICAL DECISION MAKING - ED course Complexity details: considered differential, d/w patient ED course: Patient with a UTI. Will place on antibiotics for home. Patient is well- appearing, nontoxic. Afebrile. No evidence of pyelonephritis. Patient counseled regarding signs and symptoms for which I believe and urgent re- evaluation would be necessary. Patient with good understanding of and agreement to plan and is comfortable going home at this time This document was made in part using voice recognition software. While efforts are made to proofread this document, sound alike and grammatical errors may occur. Departure - Departure Disposition: 01 Home, Self Care Clinical Impression: Urinary tract infection Qualifiers: Urinary tract infection type: acute cystitis Hematuria presence: without hematuria Qualified Code(s): N30.00 - Acute cystitis without hematuria Condition: Good Instructions: ED UTI Cystitis Female Follow-Up: Juliana Reza DO [Primary Care Provider] - As Needed Prescriptions: Nitrofurantoin [Macrobid] 100 mg PO BID #10 cap Phenazopyridine HCl [Pyridium] 200 mg PO TID PRN #6 tablet PRN Reason: dysuria Comments: Your prescriptions were sent to [facility] in [place]. Take all antibiotics until gone. Return if you worsen. Your test is negative
[2021-08-06 18:24] VITALS: BP 135/78
== END 2021-08-06 18:24 | disposition home or self-care (01) ==
LOC: ED 17:26
DX: N30.00 Acute cystitis without hematuria (principal); Z87.891 Personal history of nicotine dependence
CPT/HCPCS: 81001; 81003; 81025; 87077; 87086; 99283

== ENCOUNTER 2021-09-13 09:57 | Outpatient (CLI) | payer MEDICAID ==
[2021-09-13 13:06] LABS: BASOPHILS % (AUTO) 0.4 %; EOSINOPHILS # (AUTO) 0.1 10^3/uL (0.0-0.7); EOSINOPHILS % (AUTO) 1.2 %; HCT - HEMATOCRIT 41.5 % (37.0-47.0); HGB - HEMOGLOBIN 13.4 g/dL (12.0-16.0); LYMPHOCYTES # (AUTO) 1.9 10^3/uL (1.5-3.5); LYMPHOCYTES % (AUTO) 25.2 %; MEAN CORPUSCULAR HEMOGLOBIN 30.5 pg (27.0-31.0); MEAN CORPUSCULAR HGB CONC 32.3 g/dL (32.0-36.0); MEAN CORPUSCULAR VOLUME 94.3 fL (81.0-99.0); MEAN PLATELET VOLUME 10.2 fL (7.9-10.8); MONOCYTES # (AUTO) 0.5 10^3/uL (0.0-1.0); MONOCYTES % (AUTO) 6.3 %; NEUTROPHILS # (AUTO) 4.9 10^3/uL (1.5-6.6); NEUTROPHILS % (AUTO) 66.6 %; PLT - PLATELET COUNT 332 10^3/uL (130-450); WHITE BLOOD COUNT 7.4 x10^3/uL (4.8-10.8)
[2021-09-13 13:26] LABS: ALBUMIN/GLOBULIN RATIO 1.1 (1.0-2.2); ALKALINE PHOSPHATASE 59 IU/L (42-121); ALT ALANINE AMINOTRANSFERASE 18 IU/L (10-60); AST ASPARTATE AMINOTRANSFERASE 15 IU/L (10-42); BILIRUBIN,TOTAL 0.5 mg/dL (0.2-1.0); BUN - BLOOD UREA NITROGEN 14 mg/dL (6-20); CARBON DIOXIDE - CO2 28 mmol/L (21-32); CHLORIDE 101 mmol/L (101-111); CHOLESTEROL 157 mg/dL; CREATININE 0.8 mg/dL (0.4-1.0); GFR - MDRD 87 (>89); GLUCOSE 94 mg/dL (70-100); HDL CHOLESTEROL 53 mg/dL; LDL CHOLESTEROL,CALCULATED 91 mg/dL; LDL/HDL RATIO 1.7 (<4.4); POTASSIUM 4.3 mmol/L (3.5-5.0); SODIUM 138 mmol/L (135-145); TOTAL PROTEIN 7.6 g/dL (6.7-8.2); TRIGLYCERIDES 64 mg/dL; VLDL CHOLESTEROL 13 mg/dL
[2021-09-13 13:29] LABS: THYROID STIMULATING HORMONE 4.2 uIU/mL (0.34-5.60)
[2021-09-13 13:38] LABS: ESTIMATED AVERAGE GLUCOSE 100 mg/dL (70-100); HEMOGLOBIN A1c% 5.1 % (4.27-6.07)
== END 2021-09-13 09:58 | disposition home or self-care (01) ==
LOC: LAB.N 09:57
PROVIDERS: ATTEND Nurse Practitioner
DX: R73.9 Hyperglycemia, unspecified (principal); E28.2 Polycystic ovarian syndrome; E66.9 Obesity, unspecified; Z13.220 Encounter for screening for lipoid disorders
CPT/HCPCS: 36415; 80053; 80061; 83036; 83721; 84443; 85025

== ENCOUNTER 2022-01-13 08:00 | Outpatient (CLI) | payer MEDICAID ==
[2022-01-13 16:07] LABS: BILIRUBIN,URINE NEGATIVE (NEGATIVE); GLUCOSE, URINE (UA) NEGATIVE (NEGATIVE); KETONES,URINE (UA) NEGATIVE (NEGATIVE); LEUKOCYTE ESTERASE, URINE NEGATIVE (NEGATIVE); NITRITE,URINE NEGATIVE (NEGATIVE); OCCULT BLOOD,URINE NEGATIVE (NEGATIVE); PROTEIN,URINE NEGATIVE (NEGATIVE); UROBILINOGEN,URINE 0.2 (NORMAL) E.U./dL (NORMAL)
[2022-01-13 16:24] LABS: BACTERIA,URINE Rare /HPF (None Seen); CLARITY,URINE CLEAR (CLEAR); RBC,URINE None Seen /HPF (0-5); SQUAMOUS EPITHELIAL CELL,UR FEW Squamous (<= Few); WBC,URINE 0-3 /HPF (0-5)
[2022-01-13 21:11] LABS: CHLAMYDIA TRACHOMATIS DNA NEGATIVE (NEGATIVE); NEISSERIA GONORRHOEAE DNA NEGATIVE (NEGATIVE); TRICHOMONAS VAGINALIS DNA NEGATIVE (NEGATIVE)
== END 2022-01-13 23:59 | disposition home or self-care (01) ==
LOC: LAB.WC 08:00
PROVIDERS: ATTEND Obstetrics & Gynecology
DX: Z34.90 Encounter for supervision of normal pregnancy, unspecified, unspecified trimester (principal); Z36.89 Encounter for other specified antenatal screening
CPT/HCPCS: 81001; 87086; 87491; 87591; 87661

== ENCOUNTER 2022-02-10 11:53 | Outpatient (CLI) | payer MEDICAID ==
[2022-02-10 12:25] LABS: BASOPHILS % (AUTO) 0.3 %; EOSINOPHILS # (AUTO) 0.1 10^3/uL (0.0-0.7); EOSINOPHILS % (AUTO) 0.8 %; HCT - HEMATOCRIT 37.9 % (37.0-47.0); HGB - HEMOGLOBIN 12.9 g/dL (12.0-16.0); LYMPHOCYTES # (AUTO) 2.2 10^3/uL (1.5-3.5); MEAN CORPUSCULAR HEMOGLOBIN 31.5 pg (27.0-31.0); MEAN CORPUSCULAR VOLUME 92.4 fL (81.0-99.0); MONOCYTES # (AUTO) 0.7 10^3/uL (0.0-1.0); MONOCYTES % (AUTO) 6.4 %; NEUTROPHILS # (AUTO) 7.3 10^3/uL (1.5-6.6); NEUTROPHILS % (AUTO) 71.1 %; PLT - PLATELET COUNT 312 10^3/uL (130-450); RED CELL DISTRIBUTION WIDTH 12.1 % (12.0-15.0); WHITE BLOOD COUNT 10.3 x10^3/uL (4.8-10.8)
[2022-02-11 05:11] LABS: HBsAG SCREEN Negative (Negative); HCV AB <0.1 s/co ratio (0.0-0.9)
[2022-02-11 06:09] LABS: RPR Non Reactive (Non Reactive)
[2022-02-11 08:10] LABS: HIV SCREEN 4TH GENERATION Non Reactive (Non Reactive)
[2022-02-11 12:08] LABS: VARICELLA-ZOSTER AB IGG 1111 index (Immune >165)
== END 2022-02-10 11:54 | disposition home or self-care (01) ==
LOC: LAB 11:53
PROVIDERS: ATTEND Obstetrics & Gynecology
DX: Z34.00 Encounter for supervision of normal first pregnancy, unspecified trimester (principal); Z36.89 Encounter for other specified antenatal screening
CPT/HCPCS: 36415; 82950; 85025; 86592; 86762; 86787; 86803; 86850; 86900; 86901; 87340; 87389

== ENCOUNTER 2022-03-08 04:52 | Emergency (ER) | payer MEDICAID ==
--- NOTE | 2022-03-08 05:00 | ED Physician Documentation ---
PD HPI LOWER EXT INJURY - Stated complaint Stated Complaint: L ANKLE PX - Chief complaint Chief Complaint: Ext Problem - History obtained from History obtained from: Patient - History of Present Illness PD HPI LOW EXT INJURY LOCATION: Left, Ankle Type of injury: Other (She had trimalleolar fracture in January with surgical repair February 15. She was seen in the office 2 days ago with cast removal and changed to a walking boot. However the boot is not conforming to her ankle position and hurts to try to be in. She called her Ortho and referred to ER for splint.). 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 : None HEENT: None Psych: Depression, Post traumatic stress disorder Musculoskeletal: None Derm: None - Past Surgical History Past Surgical History: No - Present Medications Home Medications: Ambulatory Orders Medication Instructions Recorded Confirmed Oxycodone HCl/Acetaminophen 1 - 2 tab PO Q6HR PRN 03/08/22 03/08/22 [Oxycodone-Acetaminophen 5-300] Pnv No.95/Ferrous Fum/Folic AC 1 tab PO DAILY 03/08/22 03/08/22 [ Tablet] - Allergies Allergies/Adverse Reactions: Allergies Allergy/AdvReac Type Severity Reaction Status Date / Time Sulfa (Sulfonamide Allergy Intermediate Hives Verified 03/08/22 05:03 Antibiotics) - Social History Does the pt smoke?: No Smoking Status: Former smoker Does the pt drink ETOH?: No Does the pt have substance abuse?: No - Immunizations Immunizations are current?: No Immunizations: Other immun not current - POLST Patient has POLST: No POLST Status: Full Code PD ED PE NORMAL - Vitals Vital signs reviewed: Yes - General General: Alert and oriented X 3, No acute distress, Well developed/nourished - Derm Derm: Normal color, Warm and dry - Extremities Extremities: Other (The left ankle has bruising color changes along the side of the foot. There is dressing over the lower portion of the lower leg kept in place. Good color capillary refill and sensation in the toes. The ankle is held in mild equinus.) - Neuro Neuro: Alert and oriented X 3, No motor deficit, No sensory deficit, Normal speech Results - Vitals Vitals: Vital Signs - 24 hr 03/08/22 04:59 Temperature 36.1 C L Heart Rate 99 Respiratory 16 Rate Blood Pressure 134/67 H O2 Saturation 99 Oxygen O2 Source Room air Procedures - Splint (location) left ankle Splint applied by: Nurse Type of splint: Stirrup Other: Patient tolerated well, No complications, Neurovascular intact, Other (she already has wheelchair.) PD MEDICAL DECISION MAKING - ED course Complexity details: considered differential (The patient had been given a boot o rthosis which does not conform to her ankle position well and hurts a lot. Referred to the ER for splinting. We can place a stirrup splint with foot in equinus.), d/w patient Departure - Departure Disposition: 01 Home, Self Care Clinical Impression: Aftercare for cast or splint check or change Condition: Stable Record reviewed to determine appropriate education?: Yes Follow-Up: Francheska Guillory DPM [Physician No Access] - Bill Caldwell MD [Provider Admit Priv/Credential] - Comments: I hope the splint works well for you. Continue with your instructions from your podiatry/surgeon. Follow-up Thursday as planned. Return if needed.
[2022-03-08 05:03] VITALS: BP 134/67
== END 2022-03-08 05:58 | disposition home or self-care (01) ==
LOC: ED 04:52
DX: Z46.89 Encounter for fitting and adjustment of other specified devices (principal); Z87.891 Personal history of nicotine dependence
CPT/HCPCS: 29515

== ENCOUNTER 2022-03-13 21:47 | Emergency (ER) | payer MEDICAID ==
[2022-03-13] MEDS ORDERED: oxyCODONE 5 MG TABLET PO STA (22:25)
--- NOTE | 2022-03-13 23:47 | ED Physician Documentation ---
History of Present Illness - Stated complaint Stated Complaint: LT ANKLE PX - Chief complaint Chief Complaint: Trauma Ext - Additonal information Additional information: Patient is 26-year-old female presenting to the emergency department with left ankle pain. Underwent extensive reconstructive surgery to her ankle on the fifth of this month. Surgery performed at [facility]. Today while getting up from the bathroom she "took a knee" hyperextending her Achilles tendon. Reports that since her surgery her Achilles tendon has been extremely tight. Reports that she has a follow-up appointment with her orthopedist this coming Thursday. 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 : None HEENT: None Psych: Depression, Post traumatic stress disorder Musculoskeletal: None Derm: None - Past Surgical History Past Surgical History: Yes Ortho: Other - Present Medications Home Medications: Ambulatory Orders Medication Instructions Recorded Confirmed Oxycodone HCl/Acetaminophen 1 - 2 tab PO Q6HR PRN 03/08/22 03/08/22 [Oxycodone-Acetaminophen 5-300] Pnv No.95/Ferrous Fum/Folic AC 1 tab PO DAILY 03/08/22 03/08/22 [ Tablet] HYDROcod/ACETAM 5/325 [[place] 5/325] 1 - 2 ea PO Q6H PRN #6 tablet 03/14/22 - Allergies Allergies/Adverse Reactions: Allergies Allergy/AdvReac Type Severity Reaction Status Date / Time Sulfa (Sulfonamide Allergy Intermediate Hives Verified 03/13/22 21:48 Antibiotics) - Social History Does the pt smoke?: No Smoking Status: Never smoker Does the pt drink ETOH?: No Does the pt have substance abuse?: No - Immunizations Immunizations are current?: No Immunizations: Other immun not current - POLST Patient has POLST: No POLST Status: Full Code PD ED PE NORMAL - General General: Alert and oriented X 3, No acute distress - HEENT HEENT: Atraumatic - Respiratory Respiratory: No respiratory distress - Extremities Extremities: Other (Left ankle with surgical dressing in place. DP pulses palpable. Normal capillary refill and sensation distal to site of injury.) Results - Vitals Vitals: Vital Signs - 24 hr 03/13/22 03/13/22 03/13/22 21:48 22:00 22:32 Temperature 36.5 C Heart Rate 120 H 109 H Respiratory 24 20 22 Rate Blood Pressure 130/86 H O2 Saturation 98 100 03/14/22 00:12 Temperature Heart Rate 98 Respiratory 17 Rate Blood Pressure 119/63 O2 Saturation 96 Oxygen O2 Source Room air PD MEDICAL DECISION MAKING - ED course Complexity details: reviewed results, d/w patient, d/w family ED course: Patient 26-year-old female presenting to the emergency department with left ankle pain. This is in the setting of extensive reconstructive surgery performed earlier this month. Afebrile, hemodynamically stable. Reported that she overstretched her Achilles tendon while getting up from a seated position. Neurovascularly intact. X-rays negative for acute fracture. She has a follow- up appoint with her orthopod this coming Thursday. She also endorses for being 17 weeks . Given medication for pain control. Had discussion with her as well as with her mother who is present at bedside about the use of narcotic pain medication in setting of . This time she verbalizes an understanding of the risks and benefits and would like medication to go home with until she can be seen by her orthopedic surgeon. Otherwise clear return precautions given prior to discharge. Departure - Departure Comments: Thank you for allowing us to care for you today [facility]. The x-rays taken today did not show any acute fracture or malalignment in your ankle hardware. I would like you to keep your follow-up appointment with your orthopedic surgeon. I have written a prescription for some pain medication which was sent to [facility] pharmacy. Please use this sparingly And only as needed. This medication is both sedating and habit-forming. It should not be used if you are operating motor vehicle, using of machinery or you are the sole tour agent of young children. This medication cannot be refilled from the emergency department. Please remain nonweightbearing on your injured ankle. If it anytime you have any new or worsening symptoms please not hesitate to return.
--- NOTE | 2022-03-14 00:06 | XRAY Report ---
PROCEDURE: Ankle 3 View LT INDICATIONS: Ankle injury TECHNIQUE: 3 views of the ankle were acquired. COMPARISON: None available. FINDINGS: Bones: Extensive postsurgical changes are demonstrated status post ORIF of a medial malleolus fractu re and fracture of the distal fibular shaft. There is slight widening of the medial ankle mortise. Wood rgical hardware appears intact. No suspicious associated lucencies. Soft tissues: There is a small tibiotalar joint effusion. IMPRESSION: 1. Extensive postsurgical changes of the left ankle status post ORIF of medial malleolus and distal f ibular fractures. No definite acute fracture or evidence of hardware failure. However, comparison is recommended with prior outside imaging when feasible. Reviewed by: Gold Brown MD on 03/14/2022 12:05 AM PDT Approved by: Gold Brown MD on 03/14/2022 12:05 AM PDT Station ID: [id number]
[2022-03-14 00:12] VITALS: BP 119/63
[2022-03-14] MEDS ORDERED: HYDROcod/ACET 5/325 Prepack 4 PO STA (00:25)
== END 2022-03-14 00:50 | disposition home or self-care (01) ==
LOC: ED 21:47
DX: O26.892 Other specified pregnancy related conditions, second trimester (principal); G89.18 Other acute postprocedural pain; O99.891 Other specified diseases and conditions complicating pregnancy; M25.572 Pain in left ankle and joints of left foot; Z3A.14 14 weeks gestation of pregnancy
CPT/HCPCS: 73610; 99282; 99283; A9270

== ENCOUNTER 2022-04-04 18:24 | Outpatient (CLI) | payer MEDICAID ==
--- NOTE | 2022-04-04 20:17 | Ultrasound Report ---
PROCEDURE: OB Detailed Eval INDICATIONS: SUPERVISION OF OUTSIDE/PRIOR DATING DATA: Last menstrual period (LMP): 10/27/2021. LMP-based estimated date of delivery (DAREN): 08/03/2022. First dating scan (date and location): 01/07/2022. Estimated date of delivery (DAREN) from first dating scan: 08/21/2022. The below data below was generated using the ultrasound DAREN of 08/21/2022 TECHNIQUE: Real-time scanning was performed of the fetus, with image documentation and biometric measurements. COMPARISON: OB ultrasound 01/07/2022 FINDINGS: General: A single living intrauterine gestation is present. Presentation: Breech Placenta: Placental position is posterior, without previa. Amniotic fluid index: 15.3 cm, 61st percentile within normal limits for gestational age. heart rate: 136 beats per minute. Maternal cervical canal: 3.8 cm long; normal length is 2.5 cm or more. biometrics: Biparietal diameter: 4.8 cm 20 weeks 3 days Head circumference: 18.7 cm 21 weeks 0 days Abdominal circumference: 15.6 cm 20 weeks 5 days Femur length: 3.6 cm 21 weeks 2 days Estimated gestational age from initial scan: 20 weeks 1 day Composite gestational age from present scan: 20 weeks 6 days Estimated weight and percentile: 390 g 88th percentile Measurement variability in biometric dating: +/- 10 days from 12-20 weeks gestation, +/- 2 weeks from 20-30 weeks gestation, +/- 3 weeks at 30 weeks gestation or later. Anatomic survey: Neuro: Ventricles are normal at less than 10 mm. Cisterna magna is normal at 3-11 mm. Cerebellum i s normal in size and morphology. Nuchal skin fold: Normal at less than 6 mm between 14 and 20 weeks gestational age. Face: Nose and lips, facial profile are normal. Spine: No evidence for spina bifida. Heart: 4-chambered heart is present, with normal ventricular outflow tracts. Diaphragm: Diaphragm is intact. Stomach: Left-sided stomach is present. Kidneys: No hydronephrosis. Normal is less than 5 mm in 2nd trimester, less than 7 mm in 3rd trimester. Cord: 3 vessel cord has orthotopic insertion. Bladder: Normal in size. Extremities: All 4 extremities are visualized. IMPRESSION: Single live intrauterine with ultrasound gestational age today of 20 weeks 6 days. Anatomy is within normal limits. Reviewed by: Amparo Rocha MD on 04/04/2022 8:16 PM PST Approved by: Amparo Rocha MD on 04/04/2022 8:16 PM PST Station ID: [id number]
== END 2022-04-04 18:25 | disposition home or self-care (01) ==
LOC: DI 18:24
PROVIDERS: ATTEND Obstetrics & Gynecology
DX: Z34.02 Encounter for supervision of normal first pregnancy, second trimester (principal)

== ENCOUNTER 2022-04-09 17:38 | Emergency (ER) | payer MEDICAID ==
[2022-04-09] MEDS ORDERED: BUFFERED LIDOCAINE 10 ML SYRINGE SUBQ STA (17:51)
[2022-04-09 17:54] VITALS: BP 149/84
--- NOTE | 2022-04-09 17:59 | ED Physician Documentation ---
PD HPI UPPER EXT INJURY - Stated complaint Stated Complaint: L FINGER INJ - Chief complaint Chief Complaint: Laceration - History obtained from History obtained from: Patient (This is a right-handed woman who is 21 weeks who is up-to-date on tetanus and cut her left pinky finger with a knife at home while cutting yams just prior to arrival.) Review of Systems Eyes: reports: Reviewed and negative Cardiac: reports: Reviewed and negative Respiratory: reports: Reviewed and negative PD PAST MEDICAL HISTORY - Past Medical History Cardiovascular: None Respiratory: None Neuro: None Endocrine/Autoimmune: Other GI: None 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: Ovarian cysts : None HEENT: None Psych: Depression, Post traumatic stress disorder Musculoskeletal: None Derm: None - Past Surgical History Past Surgical History: Yes Ortho: Other - Present Medications Home Medications: Ambulatory Orders Medication Instructions Recorded Confirmed Oxycodone HCl/Acetaminophen 1 - 2 tab PO Q6HR PRN 03/08/22 03/08/22 [Oxycodone-Acetaminophen 5-300] Pnv No.95/Ferrous Fum/Folic AC 1 tab PO DAILY 03/08/22 03/08/22 [ Tablet] HYDROcod/ACETAM 5/325 [[place] 5/325] 1 - 2 ea PO Q6H PRN #6 tablet 03/14/22 - Allergies Allergies/Adverse Reactions: Allergies Allergy/AdvReac Type Severity Reaction Status Date / Time Sulfa (Sulfonamide Allergy Intermediate Hives Verified 04/09/22 17:47 Antibiotics) - Social History Does the pt smoke?: No Smoking Status: Never smoker Does the pt drink ETOH?: No Does the pt have substance abuse?: No - Immunizations Immunizations are current?: No Immunizations: Other immun not current - POLST Patient has POLST: No POLST Status: Full Code PD ED PE NORMAL - Vitals Vital signs reviewed: Yes - General General: Alert and oriented X 3, No acute distress - Extremities Extremities: Other (On the radial side of the tip of the left fifth finger there is a laceration that goes around the distal nailbed and along the tuft. No distal neurovascular compromise.) - Neuro Neuro: Alert and oriented X 3, Normal speech Results - Vitals Vitals: Vital Signs - 24 hr 04/09/22 17:44 Temperature 36.0 C L Heart Rate 103 H Respiratory 16 Rate Blood Pressure 149/84 H O2 Saturation 99 Oxygen O2 Source Room air Procedures - Laceration (location) L 5th finger Length in cm: 1 Wound type: Linear Neurovascular status: Sensory intact, Motor intact, Vascular intact Anesthesia: Lidocaine 1%, With bicarb, Volume - enter ml (3) Wound preparation: Chlorhexadine, Irrigated copiously NS, Debrided moderately (tip of nail removed) Skin layer closure: Nylon, Dermabond (nail part so as to not have to remove entire nail), Interrupted, Size #-0 - enter number (4-0), Sutures - enter # (3) Other: Patient tolerated well, No complications, Neurovascular intact, Tetanus UTD Departure - Departure Disposition: 01 Home, Self Care Clinical Impression: Laceration of left little finger Qualifiers: Encounter type: initial encounter Damage to nail status: with damage Foreign body presence: without foreign body Qualified Code(s): S61.317A - Laceration without foreign body of left little finger with damage to nail, initial encounter Condition: Good Record reviewed to determine appropriate education?: Yes Instructions: ED Laceration Hand Comments: Come back for any signs of infection which would include: Redness, swelling, drainage, increased pain, or fevers. You can wash it soap and water. Keep it covered and moist with bacitracin ointment which is available over the counter; avoid neosporin. Follow-up with your physician in 14 days for suture removal.
== END 2022-04-09 18:18 | disposition home or self-care (01) ==
LOC: ED 17:38
DX: O99.891 Other specified diseases and conditions complicating pregnancy (principal); S61.317A Laceration without foreign body of left little finger with damage to nail, initial encounter; W26.0XXA Contact with knife, initial encounter; Y93.G1 Activity, food preparation and clean up; Z3A.21 21 weeks gestation of pregnancy
CPT/HCPCS: 12041; 99281

== ENCOUNTER 2022-05-10 07:56 | Emergency (ER) | payer MEDICAID ==
--- OUTSIDE RECORDS SUMMARY | 2022-05-10 08:11 | EXTERNAL MEDICAL SUMMARY RPT | Continuity of Care Document ---
:1995 Author Organization [facility] Address [address] [place] [address] Phone Care Team Providers Name Role Phone Carey Sandoval Unavailable Unavailable Allergies No information. Encounters No information. Functional Status No information. Immunizations No information. Medications date description facility 2022-02-16 00:00 Oxycodone-Acetaminophen [facility] Problems date description facility 2022-02-16 00:00 fracture of tibia and fibula (disorder) [facility] 2022-02-16 00:00 closed fracture of unspecified part of fibula [facility] with tibia 2022-02-16 00:00 unspecified fracture of shaft of unspeci [facility] tibia, initial encounter for closed frac ture Procedures date description facility 2022-02-16 00:00 XR ankle LT min 3V [facility] Results/Labs test date author facility value unit interpret ation Result panel 1 (unknown) (no (unknown) (unknown) (no value) (units (unk nown) date) unknown) (unknown) (no (unknown) (unknown) [id number] (units (unkn own) date) unknown) (unknown) (no (unknown) (unknown) 1. Overall (units (unk nown) date) similar unknown) alignment of trimalleolar fracture of the left ankle. (unknown) (no (unknown) (unknown) 02/15/2022, (units (un known) date) 17:21. unknown) (unknown) (no (unknown) (unknown) 02/16/22 (units (unkno wn) date) unknown) (unknown) (no (unknown) (unknown) [address] (units (unkn own) date) Street unknown) (unknown) (no (unknown) (unknown) 2. Persistent (units ( unknown) date) widening of the unknown) medial ankle mortise and distal tibiofibular (unknown) (no (unknown) (unknown) Accession (units (unkn own) date) Number: unknown) [id number] (unknown) (no (unknown) (unknown) Age/Sex: 26 / F (units (unknown) date) Date of Service: unknown) (unknown) (no (unknown) (unknown) [employer] (units ( unknown) date) [id number] unknown) (unknown) (no (unknown) (unknown) Approved by: (units (u nknown) date) Gold Brown, unknown) Alexsandra on 02/16/2022 at 20:18 (unknown) (no (unknown) (unknown) Bones: Mildly (units ( unknown) date) displaced unknown) fracture of the medial and posterior malleoli of the (unknown) (no (unknown) (unknown) COMPARISON: (units (un known) date) [facility] unknown) Hospital, CR, XR ANKLE 1 OR 2 VIEWS LEFT, (unknown) (no (unknown) (unknown) : 1995 (units (unknown) date) Acct:[id number] unknown) (unknown) (no (unknown) (unknown) Dictated by: (units (u nknown) date) Gold Brown, unknown) Alexsandra on 02/16/2022 at 20:14 (unknown) (no (unknown) (unknown) FINDINGS: (units (unkn own) date) unknown) (unknown) (no (unknown) (unknown) IMPRESSION: (units (un known) date) unknown) (unknown) (no (unknown) (unknown) INDICATIONS: (units (u nknown) date) Bimaleor fx with unknown) continued pain (unknown) (no (unknown) (unknown) [facility] (units (unknown) date) unknown) (unknown) (no (unknown) (unknown) Loc: ED (units (unkno wn) date) unknown) (unknown) (no (unknown) (unknown) Ordering (units (unkno wn) date) Provider: unknown) Virgilio Gil P.A-C (unknown) (no (unknown) (unknown) PROCEDURE: XR (units ( unknown) date) ANKLE LT MIN 3V unknown) (unknown) (no (unknown) (unknown) Patient: (units (unkno wn) date) Janna Steele D unknown) MR#: [id number] (unknown) (no (unknown) (unknown) Procedure: XR (units ( unknown) date) ankle LT min 3V unknown) (unknown) (no (unknown) (unknown) Signed (units (unkno wn) date) unknown) (unknown) (no (unknown) (unknown) [facility] (units ( unknown) date) Hospital, CR, XR unknown) ANKLE 1 OR 2 VIEWS LEFT, 02/15/2022, 18:50. (unknown) (no (unknown) (unknown) Soft tissues: (units ( unknown) date) External cast unknown) limits evaluation of fine bony detail. (unknown) (no (unknown) (unknown) TECHNIQUE: 3 (units (u nknown) date) views of the unknown) ankle were acquired. (unknown) (no (unknown) (unknown) XRay Report (units (un known) date) unknown) (unknown) (no (unknown) (unknown) appears similar (units (unknown) date) in alignment unknown) compared to the prior study. There is persistent (unknown) (no (unknown) (unknown) distal tibial (units ( unknown) date) fibular unknown) syndesmosis. (unknown) (no (unknown) (unknown) fibular (units (unkno wn) date) diaphysis also unknown) appears similar in alignment. There is persistent (unknown) (no (unknown) (unknown) of the ankle (units (u nknown) date) mortise unknown) medially. A mildly displaced and comminuted fracture of (unknown) (no (unknown) (unknown) syndesmosis. (units (u nknown) date) unknown) (unknown) (no (unknown) (unknown) the distal (units (unk nown) date) unknown) (unknown) (no (unknown) (unknown) tibia (units (unkno wn) date) unknown) (unknown) (no (unknown) (unknown) widening of the (units (unknown) date) unknown) (unknown) (no (unknown) (unknown) widening (units (unkno wn) date) unknown) Result panel 2 (unknown) (no date) (unknown) (unknown) (no value) (units (un known) unknown) (unknown) (no date) (unknown) (unknown) [id number] (units (unkn own) unknown) (unknown) (no date) (unknown) (unknown) 02/16/22 19:24 (units (unknown) unknown) (unknown) (no date) (unknown) (unknown) 02/16/22 (units (unkn own) unknown) (unknown) (no date) (unknown) (unknown) 19:03 (units (unkn own) unknown) (unknown) (no date) (unknown) (unknown) Age/Sex: 26 / (units (unknown) F unknown) (unknown) (no date) (unknown) (unknown) Allergies (units (unk nown) unknown) (unknown) (no date) (unknown) (unknown) Allergy/AdvRea (units (unknown) c Type Severity unknown) Reaction Status Date / Time (unknown) (no date) (unknown) (unknown) Blood Pressure (units (unknown) 135/66 02/16/22 unknown) 19:03 (unknown) (no date) (unknown) (unknown) Blood Pressure (units (unknown) 135/66 unknown) (unknown) (no date) (unknown) (unknown) Chief (units (unkn own) Complaint: unknown) Extremity Injury, Lower (unknown) (no date) (unknown) (unknown) Course (units (unkn own) unknown) (unknown) (no date) (unknown) (unknown) : (units (unkn own) 1995 unknown) Acct:[id number] (unknown) (no date) (unknown) (unknown) Date of (units (unkn own) Service: unknown) 02/16/22 (unknown) (no date) (unknown) (unknown) Departure (units (unk nown) unknown) (unknown) (no date) (unknown) (unknown) Discharge Plan (units (unknown) unknown) (unknown) (no date) (unknown) (unknown) ED Orders (units (unk nown) unknown) (unknown) (no date) (unknown) (unknown) ER Physician: (units (unknown) Virgilio Gil unknown) P.A-C (unknown) (no date) (unknown) (unknown) ER where she (units ( unknown) was diagnosed unknown) with a bimalleolar fracture. States that the doctor (unknown) (no date) (unknown) (unknown) Emergency (units (unk nown) Report unknown) (unknown) (no date) (unknown) (unknown) Exam (units (unkn own) unknown) (unknown) (no date) (unknown) (unknown) General (units (unkn own) unknown) (unknown) (no date) (unknown) (unknown) Carey Sandoval, (units (unknown) PA-C [Primary unknown) Care Provider] (unknown) (no date) (unknown) (unknown) HPI - (units (unkn own) Extremity unknown) Injury (Lower) (unknown) (no date) (unknown) (unknown) HPI Narrative: (units (unknown) unknown) (unknown) (no date) (unknown) (unknown) History of (units (un known) Present Illness unknown) (unknown) (no date) (unknown) (unknown) Initial Vital (units (unknown) Signs unknown) (unknown) (no date) (unknown) (unknown) Initial Vital (units (unknown) Signs: unknown) (unknown) (no date) (unknown) (unknown) [place] (units (unkn own) [facility] [address] unknown) [address] [place] [id number] (unknown) (no date) (unknown) (unknown) Mode of (units (unkn own) arrival: unknown) Wheelchair (unknown) (no date) (unknown) (unknown) Ordered: (units (unkn own) unknown) (unknown) (no date) (unknown) (unknown) Orders (units (unkn own) unknown) (unknown) (no date) (unknown) (unknown) Oxygen (units (unkn own) Delivery Method unknown) 02/16/22 19:03 (unknown) (no date) (unknown) (unknown) Oxygen (units (unkn own) Delivery Method unknown) Room Air (unknown) (no date) (unknown) (unknown) Patient (units (unkn own) History unknown) (unknown) (no date) (unknown) (unknown) Patient is a (units ( unknown) 26-year-old unknown) female presents to the emergency room today with (unknown) (no date) (unknown) (unknown) Patient: (units (unkn own) Elian Steelelyla unknown) D MR#: [id number] (unknown) (no date) (unknown) (unknown) Pulse Oximetry (units (unknown) 97 02/16/22 unknown) 19:03 (unknown) (no date) (unknown) (unknown) Pulse Oximetry (units (unknown) 97 unknown) (unknown) (no date) (unknown) (unknown) Pulse Rate 121 (units (unknown) H 02/16/22 unknown) 19:03 (unknown) (no date) (unknown) (unknown) Pulse Rate 121 (units (unknown) H unknown) (unknown) (no date) (unknown) (unknown) Referrals: (units (un known) unknown) (unknown) (no date) (unknown) (unknown) Related Data (units ( unknown) unknown) (unknown) (no date) (unknown) (unknown) Respiratory (units (u nknown) Rate 18 unknown) 02/16/22 19:03 (unknown) (no date) (unknown) (unknown) Respiratory (units (u nknown) Rate 18 unknown) (unknown) (no date) (unknown) (unknown) SULFA Allergy (units (unknown) Unknown Uncoded unknown) 08/26/17 12:20 (unknown) (no date) (unknown) (unknown) Signed By: (units (un known) unknown) (unknown) (no date) (unknown) (unknown) Smoking (units (unkn own) Status: Never unknown) smoker (unknown) (no date) (unknown) (unknown) Social History (units (unknown) unknown) (unknown) (no date) (unknown) (unknown) Source: (units (unkn own) patient unknown) (unknown) (no date) (unknown) (unknown) Stated (units (unkn own) Complaint: Left unknown) Ankle Break, Hurting Worse (unknown) (no date) (unknown) (unknown) Substance Use (units (unknown) Type: does not unknown) use (unknown) (no date) (unknown) (unknown) Temperature (units (u nknown) 98.2 F 02/16/22 unknown) 19:03 (unknown) (no date) (unknown) (unknown) Temperature (units (u nknown) 98.2 F unknown) (unknown) (no date) (unknown) (unknown) Time Seen by (units ( unknown) Provider: unknown) 02/16/22 18:52 (unknown) (no date) (unknown) (unknown) Vital Signs - (units (unknown) 8 hr unknown) (unknown) (no date) (unknown) (unknown) Vital Signs (units (u nknown) unknown) (unknown) (no date) (unknown) (unknown) Vital signs: (units ( unknown) unknown) (unknown) (no date) (unknown) (unknown) XR ankle LT (units (u nknown) min 3V Stat unknown) (unknown) (no date) (unknown) (unknown) alcohol intake (units (unknown) frequency: unknown) other (unknown) (no date) (unknown) (unknown) ankle (units (unkn own) yesterday after unknown) stepping into a ditch and that she reported to [facility] by (unknown) (no date) (unknown) (unknown) be following (units ( unknown) up with ortho unknown) for surgery. States that the ankle pain everything (unknown) (no date) (unknown) (unknown) complaint of (units ( unknown) and her left unknown) ankle. States the pain started after she broke her (unknown) (no date) (unknown) (unknown) that time. (units (un known) States she unknown) received (unknown) (no date) (unknown) (unknown) there sent her (units (unknown) ankle and put unknown) it in a splint. States she was told that she will Result panel 3 (unknown) (no (unknown) (unknown) (no value) (units (unk nown) date) unknown) (unknown) (no (unknown) (unknown) [id number] (units (unkno wn) date) unknown) (unknown) (no (unknown) (unknown) 02/16/22 19:24 (units (unknown) date) unknown) (unknown) (no (unknown) (unknown) 02/16/22 (units (unkno wn) date) unknown) (unknown) (no (unknown) (unknown) 19:03 (units (unkno wn) date) unknown) (unknown) (no (unknown) (unknown) 6 hours did not (units (unknown) date) relieve the pain. unknown) States the pain mildly provide 7/10 but it is (unknown) (no (unknown) (unknown) Age/Sex: 26 / F (units (unknown) date) unknown) (unknown) (no (unknown) (unknown) Allergies (units (unkn own) date) unknown) (unknown) (no (unknown) (unknown) Allergy/AdvReac (units (unknown) date) Type Severity unknown) Reaction Status Date / Time (unknown) (no (unknown) (unknown) Blood Pressure (units (unknown) date) 135/66 02/16/22 unknown) 19:03 (unknown) (no (unknown) (unknown) Blood Pressure (units (unknown) date) 135/66 unknown) (unknown) (no (unknown) (unknown) Cardiovascular: (units (unknown) date) No chest pain or unknown) palpitations (unknown) (no (unknown) (unknown) Chest: Lungs (units (u nknown) date) CTAB, no rales, unknown) rhonchi or wheezes. ?? (unknown) (no (unknown) (unknown) Chief Complaint: (units (unknown) date) Extremity Injury, unknown) Lower (unknown) (no (unknown) (unknown) Course (units (unkno wn) date) unknown) (unknown) (no (unknown) (unknown) : 1995 (units (unknown) date) Acct:[id number] unknown) (unknown) (no (unknown) (unknown) Date of Service: (units (unknown) date) 02/16/22 unknown) (unknown) (no (unknown) (unknown) Departure (units (unkn own) date) unknown) (unknown) (no (unknown) (unknown) Discharge Plan (units (unknown) date) unknown) (unknown) (no (unknown) (unknown) ED Orders (units (unkn own) date) unknown) (unknown) (no (unknown) (unknown) ER Physician: (units ( unknown) date) Virgilio Gil unknown) P.A-Sudhir (unknown) (no (unknown) (unknown) ER where she was (units (unknown) date) diagnosed with a unknown) bimalleolar fracture. States that the doctor (unknown) (no (unknown) (unknown) Emergency Report (units (unknown) date) unknown) (unknown) (no (unknown) (unknown) Exam Narrative: (units (unknown) date) unknown) (unknown) (no (unknown) (unknown) Exam (units (unkno wn) date) unknown) (unknown) (no (unknown) (unknown) Eyes: PERRLA, (units ( unknown) date) EOM's full, unknown) conjunctivae clear. ? (unknown) (no (unknown) (unknown) : No urinary (units (unknown) date) concerns unknown) (unknown) (no (unknown) (unknown) Gastrointestinal (units (unknown) date) : No nausea or unknown) vomiting (unknown) (no (unknown) (unknown) Gastrointestinal: (units (unknown) date) Soft; NT; ND; Pos unknown) BS with Neg. rebound tenderness. No scars or (unknown) (no (unknown) (unknown) General (units (unkno wn) date) unknown) (unknown) (no (unknown) (unknown) General: No (units (un known) date) fever, chills or unknown) fatigue. (unknown) (no (unknown) (unknown) General: normal (units (unknown) date) appearance, well unknown) developed, well nourished, alert, and awake. (unknown) (no (unknown) (unknown) Carey Sandoval, (units (unknown) date) CHAN-C [Primary unknown) Care Provider] (unknown) (no (unknown) (unknown) HEENT: No (units (unkn own) date) congestion, ear unknown) pain, rhinorrhea, sore throat or tinnitus (unknown) (no (unknown) (unknown) HPI - Extremity (units (unknown) date) Injury (Lower) unknown) (unknown) (no (unknown) (unknown) HPI Narrative: (units (unknown) date) unknown) (unknown) (no (unknown) (unknown) Head: (units (unkno wn) date) Normocephalic, no unknown) lesions. (unknown) (no (unknown) (unknown) Heart: RRR, no (units (unknown) date) murmurs, rubs or unknown) gallops. (unknown) (no (unknown) (unknown) History of (units (unk nown) date) Present Illness unknown) (unknown) (no (unknown) (unknown) Initial Vital (units ( unknown) date) Signs unknown) (unknown) (no (unknown) (unknown) Initial Vital (units ( unknown) date) Signs: unknown) (unknown) (no (unknown) (unknown) [facility] (units (unknown) date) [address] [place] [address] unknown) [place] [address] (unknown) (no (unknown) (unknown) Mode of arrival: (units (unknown) date) Wheelchair unknown) (unknown) (no (unknown) (unknown) Musculoskeletal: (units (unknown) date) Left ankle pain? unknown) (unknown) (no (unknown) (unknown) Musculoskeletal: (units (unknown) date) Patient left leg unknown) and left foot are in a posterior leg splint (unknown) (no (unknown) (unknown) Narrative (units (unkn own) date) unknown) (unknown) (no (unknown) (unknown) Narrative: (units (unk nown) date) unknown) (unknown) (no (unknown) (unknown) Neuro: (units (unkno wn) date) Physiological, no unknown) localizing findings, [id number] intact. ?? (unknown) (no (unknown) (unknown) Neurological: (units ( unknown) date) Awake, alert and unknown) in not apparent distress. No Headaches, changes (unknown) (no (unknown) (unknown) Not in acute (units (u nknown) date) distress. ? unknown) (unknown) (no (unknown) (unknown) Ordered: (units (unkno wn) date) unknown) (unknown) (no (unknown) (unknown) Orders (units (unkno wn) date) unknown) (unknown) (no (unknown) (unknown) Oxygen Delivery (units (unknown) date) Method 02/16/22 unknown) 19:03 (unknown) (no (unknown) (unknown) Oxygen Delivery (units (unknown) date) Method Room Air unknown) (unknown) (no (unknown) (unknown) PSYCHIATRIC: The (units (unknown) date) mood is good, no unknown) blunted affect. Speech is clear. Thought (unknown) (no (unknown) (unknown) Patient History (units (unknown) date) unknown) (unknown) (no (unknown) (unknown) Patient is a (units (u nknown) date) 26-year-old unknown) female presents to the emergency room today with (unknown) (no (unknown) (unknown) Patient: (units (unkno wn) date) Janna Steele D unknown) MR#: [id number] (unknown) (no (unknown) (unknown) Physical Exam: ? (units (unknown) date) unknown) (unknown) (no (unknown) (unknown) Pulse Oximetry (units (unknown) date) 97 02/16/22 19:03 unknown) (unknown) (no (unknown) (unknown) Pulse Oximetry (units (unknown) date) 97 unknown) (unknown) (no (unknown) (unknown) Pulse Rate 121 H (units (unknown) date) 02/16/22 19:03 unknown) (unknown) (no (unknown) (unknown) Pulse Rate 121 H (units (unknown) date) unknown) (unknown) (no (unknown) (unknown) R.O.S.: (units (unkno wn) date) unknown) (unknown) (no (unknown) (unknown) Referrals: (units (unk nown) date) unknown) (unknown) (no (unknown) (unknown) Related Data (units (u nknown) date) unknown) (unknown) (no (unknown) (unknown) Respiratory Rate (units (unknown) date) 18 02/16/22 19:03 unknown) (unknown) (no (unknown) (unknown) Respiratory Rate (units (unknown) date) 18 unknown) (unknown) (no (unknown) (unknown) Respiratory: No (units (unknown) date) S.O.B. unknown) (unknown) (no (unknown) (unknown) Review of (units (unkn own) date) Systems unknown) (unknown) (no (unknown) (unknown) SULFA Allergy (units ( unknown) date) Unknown Uncoded unknown) 08/26/17 12:20 (unknown) (no (unknown) (unknown) Signed By: (units (unk nown) date) unknown) (unknown) (no (unknown) (unknown) Skin: No rash or (units (unknown) date) associated unknown) abnormalities (unknown) (no (unknown) (unknown) Skin: Normal, no (units (unknown) date) rashes, no unknown) lesions noted. ?? (unknown) (no (unknown) (unknown) Smoking Status: (units (unknown) date) Never smoker unknown) (unknown) (no (unknown) (unknown) Social History (units (unknown) date) unknown) (unknown) (no (unknown) (unknown) Source: patient (units (unknown) date) unknown) (unknown) (no (unknown) (unknown) Stated (units (unkno wn) date) Complaint: Left unknown) Ankle Break, Hurting Worse (unknown) (no (unknown) (unknown) Substance Use (units ( unknown) date) Type: does not unknown) use (unknown) (no (unknown) (unknown) Temperature 98.2 (units (unknown) date) F 02/16/22 19:03 unknown) (unknown) (no (unknown) (unknown) Temperature 98.2 (units (unknown) date) F unknown) (unknown) (no (unknown) (unknown) Time Seen by (units (u nknown) date) Provider: unknown) 02/16/22 18:52 (unknown) (no (unknown) (unknown) Vital Signs - 8 (units (unknown) date) hr unknown) (unknown) (no (unknown) (unknown) Vital Signs (units (un known) date) unknown) (unknown) (no (unknown) (unknown) Vital signs: (units (u nknown) date) unknown) (unknown) (no (unknown) (unknown) XR ankle LT min (units (unknown) date) 3V Stat unknown) (unknown) (no (unknown) (unknown) about a 10/10 (units ( unknown) date) when she elevates unknown) the leg. (unknown) (no (unknown) (unknown) alcohol intake (units (unknown) date) frequency: other unknown) (unknown) (no (unknown) (unknown) and wrap. (units (unkn own) date) unknown) (unknown) (no (unknown) (unknown) ankle yesterday (units (unknown) date) after stepping unknown) into a ditch and that she reported to [facility] by (unknown) (no (unknown) (unknown) be following up (units (unknown) date) with ortho for unknown) surgery. States that the ankle pain everything (unknown) (no (unknown) (unknown) complaint of and (units (unknown) date) her left ankle. unknown) States the pain started after she broke her (unknown) (no (unknown) (unknown) in vision or (units (u nknown) date) other related unknown) neurological concerns. (unknown) (no (unknown) (unknown) major (units (unkno wn) date) deformities noted unknown) on Visual Inspection. (unknown) (no (unknown) (unknown) process is (units (unk nown) date) linear, thought unknown) content is appropriate. The voice is without (unknown) (no (unknown) (unknown) significant (units (un known) date) inflection. unknown) (unknown) (no (unknown) (unknown) that time. (units (unk nown) date) States she unknown) received 5 mg oxycodone for pain and is taking them every (unknown) (no (unknown) (unknown) there sent her (units (unknown) date) ankle and put it unknown) in a splint. States she was told that she will Result panel 4 (unknown) (no (unknown) (unknown) (no value) (units (unk nown) date) unknown) (unknown) (no (unknown) (unknown) [id number] (units (unkno wn) date) unknown) (unknown) (no (unknown) (unknown) 02/16/22 19:24 (units (unknown) date) unknown) (unknown) (no (unknown) (unknown) 02/16/22 (units (unkno wn) date) unknown) (unknown) (no (unknown) (unknown) 19:03 (units (unkno wn) date) unknown) (unknown) (no (unknown) (unknown) 6 hours did not (units (unknown) date) relieve the pain. unknown) States the pain mildly provide 7/10 but it is (unknown) (no (unknown) (unknown) Age/Sex: 26 / F (units (unknown) date) unknown) (unknown) (no (unknown) (unknown) Allergies (units (unkn own) date) unknown) (unknown) (no (unknown) (unknown) Allergy/AdvReac (units (unknown) date) Type Severity unknown) Reaction Status Date / Time (unknown) (no (unknown) (unknown) Blood Pressure (units (unknown) date) 135/66 02/16/22 unknown) 19:03 (unknown) (no (unknown) (unknown) Blood Pressure (units (unknown) date) 135/66 unknown) (unknown) (no (unknown) (unknown) Cardiovascular: (units (unknown) date) No chest pain or unknown) palpitations (unknown) (no (unknown) (unknown) Chest: Lungs (units (u nknown) date) CTAB, no rales, unknown) rhonchi or wheezes. ?? (unknown) (no (unknown) (unknown) Chief Complaint: (units (unknown) date) Extremity Injury, unknown) Lower (unknown) (no (unknown) (unknown) Course (units (unkno wn) date) unknown) (unknown) (no (unknown) (unknown) : 1995 (units (unknown) date) Acct:[id number] unknown) (unknown) (no (unknown) (unknown) Date of Service: (units (unknown) date) 02/16/22 unknown) (unknown) (no (unknown) (unknown) Departure (units (unkn own) date) unknown) (unknown) (no (unknown) (unknown) Discharge Plan (units (unknown) date) unknown) (unknown) (no (unknown) (unknown) ED Orders (units (unkn own) date) unknown) (unknown) (no (unknown) (unknown) ER Physician: (units ( unknown) date) Virgilio Gil unknown) PBala (unknown) (no (unknown) (unknown) ER where she was (units (unknown) date) diagnosed with a unknown) bimalleolar fracture. States that the doctor (unknown) (no (unknown) (unknown) Emergency Report (units (unknown) date) unknown) (unknown) (no (unknown) (unknown) Exam Narrative: (units (unknown) date) unknown) (unknown) (no (unknown) (unknown) Exam (units (unkno wn) date) unknown) (unknown) (no (unknown) (unknown) Eyes: PERRLA, (units ( unknown) date) EOM's full, unknown) conjunctivae clear. ? (unknown) (no (unknown) (unknown) : No urinary (units (unknown) date) concerns unknown) (unknown) (no (unknown) (unknown) Gastrointestinal (units (unknown) date) : No nausea or unknown) vomiting (unknown) (no (unknown) (unknown) Gastrointestinal: (units (unknown) date) Soft; NT; ND; Pos unknown) BS with Neg. rebound tenderness. No scars or (unknown) (no (unknown) (unknown) General (units (unkno wn) date) unknown) (unknown) (no (unknown) (unknown) General: No (units (un known) date) fever, chills or unknown) fatigue. (unknown) (no (unknown) (unknown) General: normal (units (unknown) date) appearance, well unknown) developed, well nourished, alert, and awake. (unknown) (no (unknown) (unknown) Carey Sandoval, (units (unknown) date) PA-C [Primary unknown) Care Provider] (unknown) (no (unknown) (unknown) HEENT: No (units (unkn own) date) congestion, ear unknown) pain, rhinorrhea, sore throat or tinnitus (unknown) (no (unknown) (unknown) HPI - Extremity (units (unknown) date) Injury (Lower) unknown) (unknown) (no (unknown) (unknown) HPI Narrative: (units (unknown) date) unknown) (unknown) (no (unknown) (unknown) Head: (units (unkno wn) date) Normocephalic, no unknown) lesions. (unknown) (no (unknown) (unknown) Heart: RRR, no (units (unknown) date) murmurs, rubs or unknown) gallops. (unknown) (no (unknown) (unknown) History of (units (unk nown) date) Present Illness unknown) (unknown) (no (unknown) (unknown) Initial Vital (units ( unknown) date) Signs unknown) (unknown) (no (unknown) (unknown) Initial Vital (units ( unknown) date) Signs: unknown) (unknown) (no (unknown) (unknown) [facility] (units (unknown) date) [address] [place] [address] unknown) [place] [address] (unknown) (no (unknown) (unknown) MDM - Extremity (units (unknown) date) Injury (Lower) unknown) (unknown) (no (unknown) (unknown) MDM Narrative (units ( unknown) date) unknown) (unknown) (no (unknown) (unknown) Medical decision (units (unknown) date) making narrative: unknown) (unknown) (no (unknown) (unknown) Mode of arrival: (units (unknown) date) Wheelchair unknown) (unknown) (no (unknown) (unknown) Musculoskeletal: (units (unknown) date) Left ankle pain? unknown) (unknown) (no (unknown) (unknown) Musculoskeletal: (units (unknown) date) Patient left leg unknown) and left foot are in a posterior leg splint (unknown) (no (unknown) (unknown) Narrative (units (unkn own) date) unknown) (unknown) (no (unknown) (unknown) Narrative: (units (unk nown) date) unknown) (unknown) (no (unknown) (unknown) Neuro: (units (unkno wn) date) Physiological, no unknown) localizing findings, CN3-12 intact. ?? (unknown) (no (unknown) (unknown) Neurological: (units ( unknown) date) Awake, alert and unknown) in not apparent distress. No Headaches, changes (unknown) (no (unknown) (unknown) Not in acute (units (u nknown) date) distress. ? unknown) (unknown) (no (unknown) (unknown) Ordered: (units (unkno wn) date) unknown) (unknown) (no (unknown) (unknown) Orders (units (unkno wn) date) unknown) (unknown) (no (unknown) (unknown) Oxygen Delivery (units (unknown) date) Method 02/16/22 unknown) 19:03 (unknown) (no (unknown) (unknown) Oxygen Delivery (units (unknown) date) Method Room Air unknown) (unknown) (no (unknown) (unknown) PSYCHIATRIC: The (units (unknown) date) mood is good, no unknown) blunted affect. Speech is clear. Thought (unknown) (no (unknown) (unknown) Patient History (units (unknown) date) unknown) (unknown) (no (unknown) (unknown) Patient is a (units (u nknown) date) 26-year-old unknown) female presents to the emergency room today with (unknown) (no (unknown) (unknown) Patient presents (units (unknown) date) today with unknown) complaint of left ankle after at an alternate ER (unknown) (no (unknown) (unknown) Patient: (units (unkno wn) date) Janna Steele D unknown) MR#: [id number] (unknown) (no (unknown) (unknown) Physical Exam: ? (units (unknown) date) unknown) (unknown) (no (unknown) (unknown) Pulse Oximetry (units (unknown) date) 97 02/16/22 19:03 unknown) (unknown) (no (unknown) (unknown) Pulse Oximetry (units (unknown) date) 97 unknown) (unknown) (no (unknown) (unknown) Pulse Rate 121 H (units (unknown) date) 02/16/22 19:03 unknown) (unknown) (no (unknown) (unknown) Pulse Rate 121 H (units (unknown) date) unknown) (unknown) (no (unknown) (unknown) R.O.S.: (units (unkno wn) date) unknown) (unknown) (no (unknown) (unknown) Referrals: (units (unk nown) date) unknown) (unknown) (no (unknown) (unknown) Related Data (units (u nknown) date) unknown) (unknown) (no (unknown) (unknown) Respiratory Rate (units (unknown) date) 18 02/16/22 19:03 unknown) (unknown) (no (unknown) (unknown) Respiratory Rate (units (unknown) date) 18 unknown) (unknown) (no (unknown) (unknown) Respiratory: No (units (unknown) date) S.O.B. unknown) (unknown) (no (unknown) (unknown) Review of (units (unkn own) date) Systems unknown) (unknown) (no (unknown) (unknown) SULFA Allergy (units ( unknown) date) Unknown Uncoded unknown) 08/26/17 12:20 (unknown) (no (unknown) (unknown) Signed By: (units (unk nown) date) unknown) (unknown) (no (unknown) (unknown) Skin: No rash or (units (unknown) date) associated unknown) abnormalities (unknown) (no (unknown) (unknown) Skin: Normal, no (units (unknown) date) rashes, no unknown) lesions noted. ?? (unknown) (no (unknown) (unknown) Smoking Status: (units (unknown) date) Never smoker unknown) (unknown) (no (unknown) (unknown) Social History (units (unknown) date) unknown) (unknown) (no (unknown) (unknown) Source: patient (units (unknown) date) unknown) (unknown) (no (unknown) (unknown) Stated (units (unkno wn) date) Complaint: Left unknown) Ankle Break, Hurting Worse (unknown) (no (unknown) (unknown) Substance Use (units ( unknown) date) Type: does not unknown) use (unknown) (no (unknown) (unknown) Temperature 98.2 (units (unknown) date) F 02/16/22 19:03 unknown) (unknown) (no (unknown) (unknown) Temperature 98.2 (units (unknown) date) F unknown) (unknown) (no (unknown) (unknown) Time Seen by (units (u nknown) date) Provider: unknown) 02/16/22 18:52 (unknown) (no (unknown) (unknown) Vital Signs - 8 (units (unknown) date) hr unknown) (unknown) (no (unknown) (unknown) Vital Signs (units (un known) date) unknown) (unknown) (no (unknown) (unknown) Vital signs: (units (u nknown) date) unknown) (unknown) (no (unknown) (unknown) XR ankle LT min (units (unknown) date) 3V Stat unknown) (unknown) (no (unknown) (unknown) about a 10/10 (units ( unknown) date) when she elevates unknown) the leg. (unknown) (no (unknown) (unknown) alcohol intake (units (unknown) date) frequency: other unknown) (unknown) (no (unknown) (unknown) and wrap. (units (unkn own) date) unknown) (unknown) (no (unknown) (unknown) ankle yesterday (units (unknown) date) after stepping unknown) into a ditch and that she reported to [facility] by (unknown) (no (unknown) (unknown) be following up (units (unknown) date) with ortho for unknown) surgery. States that the ankle pain everything (unknown) (no (unknown) (unknown) complaint of and (units (unknown) date) her left ankle. unknown) States the pain started after she broke her (unknown) (no (unknown) (unknown) in vision or (units (u nknown) date) other related unknown) neurological concerns. (unknown) (no (unknown) (unknown) major (units (unkno wn) date) deformities noted unknown) on Visual Inspection. (unknown) (no (unknown) (unknown) patient is (units (unk nown) date) awaiting x-ray. unknown) (unknown) (no (unknown) (unknown) process is (units (unk nown) date) linear, thought unknown) content is appropriate. The voice is without (unknown) (no (unknown) (unknown) significant (units (un known) date) inflection. unknown) (unknown) (no (unknown) (unknown) that time. (units (unk nown) date) States she unknown) received 5 mg oxycodone for pain and is taking them every (unknown) (no (unknown) (unknown) there sent her (units (unknown) date) ankle and put it unknown) in a splint. States she was told that she will (unknown) (no (unknown) (unknown) yesterday. (units (unk nown) date) X-rays ordered to unknown) assess the fracture. Pain medicine issue of Result panel 5 (unknown) (no (unknown) (unknown) (no value) (units (unk nown) date) unknown) (unknown) (no (unknown) (unknown) *If you do not (units (unknown) date) have a primary unknown) care provider please contact the [facility] (unknown) (no (unknown) (unknown) *Please continue (units (unknown) date) to take your unknown) regular medications as directed. (unknown) (no (unknown) (unknown) *Please follow (units (unknown) date) up with your unknown) primary care provider in 2-3 days, call for an (unknown) (no (unknown) (unknown) *Return to (units (unk nown) date) Emergency unknown) Department if you should have any new, worsening or (unknown) (no (unknown) (unknown) *What to do: (units (u nknown) date) unknown) (unknown) (no (unknown) (unknown) *You have been (units (unknown) date) diagnosed with unknown) bimalleolar fracture of your left ankle. Repeat (unknown) (no (unknown) (unknown) [id number] (units (unkno wn) date) unknown) (unknown) (no (unknown) (unknown) 1 tab PO Q8H PRN (units (unknown) date) (Reason: pain) unknown) Qty: 20 0RF (unknown) (no (unknown) (unknown) 02/16/22 19:24 (units (unknown) date) unknown) (unknown) (no (unknown) (unknown) 02/16/22 (units (unkno wn) date) unknown) (unknown) (no (unknown) (unknown) 19:03 (units (unkno wn) date) unknown) (unknown) (no (unknown) (unknown) Activity (units (unkno wn) date) Restrictions/Hermelindo unknown) tional Instructions: (unknown) (no (unknown) (unknown) Age/Sex: 26 / F (units (unknown) date) unknown) (unknown) (no (unknown) (unknown) Allergies (units (unkn own) date) unknown) (unknown) (no (unknown) (unknown) Allergy/AdvReac (units (unknown) date) Type Severity unknown) Reaction Status Date / Time (unknown) (no (unknown) (unknown) Blood Pressure (units (unknown) date) 135/66 02/16/22 unknown) 19:03 (unknown) (no (unknown) (unknown) Blood Pressure (units (unknown) date) 135 unknown) (unknown) (no (unknown) (unknown) Cardiovascular: (units (unknown) date) No chest pain or unknown) palpitations (unknown) (no (unknown) (unknown) Chest: Lungs (units (u nknown) date) CTAB, no rales, unknown) rhonchi or wheezes. ?? (unknown) (no (unknown) (unknown) Chief Complaint: (units (unknown) date) Extremity Injury, unknown) Lower (unknown) (no (unknown) (unknown) Clinical (units (unkno wn) date) Impression: unknown) (unknown) (no (unknown) (unknown) Course (units (unkno wn) date) unknown) (unknown) (no (unknown) (unknown) : 1995 (units (unknown) date) Acct:[id number] unknown) (unknown) (no (unknown) (unknown) Date of Service: (units (unknown) date) 02/16/22 unknown) (unknown) (no (unknown) (unknown) Departure (units (unkn own) date) unknown) (unknown) (no (unknown) (unknown) Discharge Plan (units (unknown) date) unknown) (unknown) (no (unknown) (unknown) ED Orders (units (unkn own) date) unknown) (unknown) (no (unknown) (unknown) ER Physician: (units ( unknown) date) Virgilio Gil unknown) Rosi (unknown) (no (unknown) (unknown) ER where she was (units (unknown) date) diagnosed with a unknown) bimalleolar fracture. States that the doctor (unknown) (no (unknown) (unknown) Emergency Report (units (unknown) date) unknown) (unknown) (no (unknown) (unknown) Exam Narrative: (units (unknown) date) unknown) (unknown) (no (unknown) (unknown) Exam (units (unkno wn) date) unknown) (unknown) (no (unknown) (unknown) Eyes: PERRLA, (units ( unknown) date) EOM's full, unknown) conjunctivae clear. ? (unknown) (no (unknown) (unknown) Fracture of (units (un known) date) tibia and fibula unknown) (unknown) (no (unknown) (unknown) : No urinary (units (unknown) date) concerns unknown) (unknown) (no (unknown) (unknown) Gastrointestinal (units (unknown) date) : No nausea or unknown) vomiting (unknown) (no (unknown) (unknown) Gastrointestinal: (units (unknown) date) Soft; NT; ND; Pos unknown) BS with Neg. rebound tenderness. No scars or (unknown) (no (unknown) (unknown) General (units (unkno wn) date) unknown) (unknown) (no (unknown) (unknown) General: No (units (un known) date) fever, chills or unknown) fatigue. (unknown) (no (unknown) (unknown) General: normal (units (unknown) date) appearance, well unknown) developed, well nourished, alert, and awake. (unknown) (no (unknown) (unknown) Carey Sandoval, (units (unknown) date) SIENA [Primary unknown) Care Provider] (unknown) (no (unknown) (unknown) HEENT: No (units (unkn own) date) congestion, ear unknown) pain, rhinorrhea, sore throat or tinnitus (unknown) (no (unknown) (unknown) HPI - Extremity (units (unknown) date) Injury (Lower) unknown) (unknown) (no (unknown) (unknown) HPI Narrative: (units (unknown) date) unknown) (unknown) (no (unknown) (unknown) Head: (units (unkno wn) date) Normocephalic, no unknown) lesions. (unknown) (no (unknown) (unknown) Heart: RRR, no (units (unknown) date) murmurs, rubs or unknown) gallops. (unknown) (no (unknown) (unknown) History of (units (unk nown) date) Present Illness unknown) (unknown) (no (unknown) (unknown) Initial Vital (units ( unknown) date) Signs unknown) (unknown) (no (unknown) (unknown) Initial Vital (units ( unknown) date) Signs: unknown) (unknown) (no (unknown) (unknown) Instructions: DI (units (unknown) date) for Fracture unknown) (unknown) (no (unknown) (unknown) [facility] (units (unknown) date) [address] [place] [address] unknown) [place] [address] (unknown) (no (unknown) (unknown) Left lower leg (units (unknown) date) also has intact unknown) sensation to touch. (unknown) (no (unknown) (unknown) MDM - Extremity (units (unknown) date) Injury (Lower) unknown) (unknown) (no (unknown) (unknown) MDM Narrative (units ( unknown) date) unknown) (unknown) (no (unknown) (unknown) Medical decision (units (unknown) date) making narrative: unknown) (unknown) (no (unknown) (unknown) Medication (units (unk nown) date) Instructions unknown) Recorded (unknown) (no (unknown) (unknown) Mode of arrival: (units (unknown) date) Wheelchair unknown) (unknown) (no (unknown) (unknown) Musculoskeletal: (units (unknown) date) Left ankle pain? unknown) (unknown) (no (unknown) (unknown) Musculoskeletal: (units (unknown) date) Patient left leg unknown) and left foot are in a posterior leg splint (unknown) (no (unknown) (unknown) Narrative (units (unkn own) date) unknown) (unknown) (no (unknown) (unknown) Narrative: (units (unk nown) date) unknown) (unknown) (no (unknown) (unknown) Neuro: (units (unkno wn) date) Physiological, no unknown) localizing findings, CN3-12 intact. ?? (unknown) (no (unknown) (unknown) Neurological: (units ( unknown) date) Awake, alert and unknown) in not apparent distress. No Headaches, changes (unknown) (no (unknown) (unknown) New (units (unkno wn) date) unknown) (unknown) (no (unknown) (unknown) Not in acute (units (u nknown) date) distress. ? unknown) (unknown) (no (unknown) (unknown) Ordered: (units (unkno wn) date) unknown) (unknown) (no (unknown) (unknown) Orders (units (unkno wn) date) unknown) (unknown) (no (unknown) (unknown) Oxygen Delivery (units (unknown) date) Method 02/16/22 unknown) 19:03 (unknown) (no (unknown) (unknown) Oxygen Delivery (units (unknown) date) Method Room Air unknown) (unknown) (no (unknown) (unknown) PSYCHIATRIC: The (units (unknown) date) mood is good, no unknown) blunted affect. Speech is clear. Thought (unknown) (no (unknown) (unknown) Patient (units (unkno wn) date) Disposition: Home unknown) (unknown) (no (unknown) (unknown) Patient History (units (unknown) date) unknown) (unknown) (no (unknown) (unknown) Patient is a (units (u nknown) date) 26-year-old unknown) female presents to the emergency room today with (unknown) (no (unknown) (unknown) Patient presents (units (unknown) date) today with unknown) complaint of left ankle after at an alternate ER (unknown) (no (unknown) (unknown) Patient: (units (unkno wn) date) Cedric,Janna D unknown) MR#: [id number] (unknown) (no (unknown) (unknown) Physical Exam: ? (units (unknown) date) unknown) (unknown) (no (unknown) (unknown) Plan is to (units (unk nown) date) change patient's unknown) medication to Percocet and discharge patient home (unknown) (no (unknown) (unknown) Prescriptions: (units (unknown) date) unknown) (unknown) (no (unknown) (unknown) Previous Rx's (units ( unknown) date) unknown) (unknown) (no (unknown) (unknown) Pulse Oximetry (units (unknown) date) 97 02/16/22 19:03 unknown) (unknown) (no (unknown) (unknown) Pulse Oximetry (units (unknown) date) 97 unknown) (unknown) (no (unknown) (unknown) Pulse Rate 121 H (units (unknown) date) 02/16/22 19:03 unknown) (unknown) (no (unknown) (unknown) Pulse Rate 121 H (units (unknown) date) unknown) (unknown) (no (unknown) (unknown) R.O.S.: (units (unkno wn) date) unknown) (unknown) (no (unknown) (unknown) Referrals: (units (unk nown) date) unknown) (unknown) (no (unknown) (unknown) Related Data (units (u nknown) date) unknown) (unknown) (no (unknown) (unknown) Resource line at (units (unknown) date) [phone]. unknown) They will ask some questions about your medical (unknown) (no (unknown) (unknown) Respiratory Rate (units (unknown) date) 18 02/16/22 19:03 unknown) (unknown) (no (unknown) (unknown) Respiratory Rate (units (unknown) date) 18 unknown) (unknown) (no (unknown) (unknown) Respiratory: No (units (unknown) date) S.O.B. unknown) (unknown) (no (unknown) (unknown) Review of (units (unkn own) date) Systems unknown) (unknown) (no (unknown) (unknown) SULFA Allergy (units ( unknown) date) Unknown Uncoded unknown) 08/26/17 12:20 (unknown) (no (unknown) (unknown) Signed By: (units (unk nown) date) unknown) (unknown) (no (unknown) (unknown) Skin: No rash or (units (unknown) date) associated unknown) abnormalities (unknown) (no (unknown) (unknown) Skin: Normal, no (units (unknown) date) rashes, no unknown) lesions noted. ?? (unknown) (no (unknown) (unknown) Smoking Status: (units (unknown) date) Never smoker unknown) (unknown) (no (unknown) (unknown) Social History (units (unknown) date) unknown) (unknown) (no (unknown) (unknown) Source: patient (units (unknown) date) unknown) (unknown) (no (unknown) (unknown) Stated (units (unkno wn) date) Complaint: Left unknown) Ankle Break, Hurting Worse (unknown) (no (unknown) (unknown) Substance Use (units ( unknown) date) Type: does not unknown) use (unknown) (no (unknown) (unknown) Temperature 98.2 (units (unknown) date) F 02/16/22 19:03 unknown) (unknown) (no (unknown) (unknown) Temperature 98.2 (units (unknown) date) F unknown) (unknown) (no (unknown) (unknown) Time Seen by (units (u nknown) date) Provider: unknown) 02/16/22 18:52 (unknown) (no (unknown) (unknown) Vital Signs - 8 (units (unknown) date) hr unknown) (unknown) (no (unknown) (unknown) Vital Signs (units (un known) date) unknown) (unknown) (no (unknown) (unknown) Vital signs: (units (u nknown) date) unknown) (unknown) (no (unknown) (unknown) XR ankle LT min (units (unknown) date) 3V Stat unknown) (unknown) (no (unknown) (unknown) [ ] New (units (unkno wn) date) medication unknown) prescriptions sent to your pharmacy: [ ] (unknown) (no (unknown) (unknown) [ ] No new (units (unk nown) date) medications given unknown) (unknown) (no (unknown) (unknown) [x] New (units (unkno wn) date) medication unknown) written as a paper prescription (unknown) (no (unknown) (unknown) alcohol intake (units (unknown) date) frequency: other unknown) (unknown) (no (unknown) (unknown) and wrap. Left (units (unknown) date) foot has good unknown) capillary refill and intact sensation to touch. (unknown) (no (unknown) (unknown) ankle yesterday (units (unknown) date) after stepping unknown) into a ditch and that she reported to [facility] by (unknown) (no (unknown) (unknown) appointment. Let (units (unknown) date) them know you unknown) were seen in the Emergency Department and that we (unknown) (no (unknown) (unknown) arise.] (units (unkno wn) date) unknown) (unknown) (no (unknown) (unknown) ask that you be (units (unknown) date) seen in follow unknown) up. We will electronically transmit a record of (unknown) (no (unknown) (unknown) be following up (units (unknown) date) with ortho for unknown) surgery. States that the ankle pain everything (unknown) (no (unknown) (unknown) complaint of and (units (unknown) date) her left ankle. unknown) States the pain started after she broke her (unknown) (no (unknown) (unknown) concerning (units (unk nown) date) symptoms, such as unknown) [fever greater than 101 F, shaking chills, (unknown) (no (unknown) (unknown) history and help (units (unknown) date) get you set up unknown) with a doctor in the community. (unknown) (no (unknown) (unknown) in vision or (units (u nknown) date) other related unknown) neurological concerns. (unknown) (no (unknown) (unknown) is aligned and (units (unknown) date) is not appear to unknown) need further reduction. Note x-ray was also (unknown) (no (unknown) (unknown) major (units (unkno wn) date) deformities noted unknown) on Visual Inspection. (unknown) (no (unknown) (unknown) mg tablet (units (unkn own) date) (Percocet) unknown) (unknown) (no (unknown) (unknown) oxycodone-acetam (units (unknown) date) inophen 5 mg-325 unknown) 1 tab PO Q8H PRN pain #20 tabs 02/16/22 (unknown) (no (unknown) (unknown) oxycodone-acetam (units (unknown) date) inophen unknown) [Percocet] 5-325 mg tablet (unknown) (no (unknown) (unknown) pain medicines (units (unknown) date) as ordered and unknown) follow-up with the orthopedic provider that you (unknown) (no (unknown) (unknown) patient is (units (unk nown) date) awaiting x-ray. unknown) Repeat x-ray confirmed a bimalleolar fracture that (unknown) (no (unknown) (unknown) process is (units (unk nown) date) linear, thought unknown) content is appropriate. The voice is without (unknown) (no (unknown) (unknown) referred to. (units (u nknown) date) unknown) (unknown) (no (unknown) (unknown) relieve the (units (un known) date) pain. States the unknown) pain mildly provide 7/10 but it is about a 10/10 (unknown) (no (unknown) (unknown) reviewed by (units (unknown) date) Hector agrees unknown) that no further reduction is needed at this time. (unknown) (no (unknown) (unknown) she received 5 (units (unknown) date) mg oxycodone for unknown) pain and is taking them every 6 hours did not (unknown) (no (unknown) (unknown) significant (units (un known) date) inflection. unknown) (unknown) (no (unknown) (unknown) that time. Left (units (unknown) date) lower extremity unknown) does not feel numb she has good sensation to (unknown) (no (unknown) (unknown) the extremity (units ( unknown) date) but it is just unknown) painful pain feels like a throbbing pain. States (unknown) (no (unknown) (unknown) there sent her (units (unknown) date) ankle and put it unknown) in a splint. States she was told that she will (unknown) (no (unknown) (unknown) this time. (units (unk nown) date) Changed and unknown) increase her pain medication. I suggest you take the (unknown) (no (unknown) (unknown) today's note if (units (unknown) date) your PCP is in unknown) our system (unknown) (no (unknown) (unknown) were referred (units ( unknown) date) to. Please return unknown) to the emergency room if any emergent concerns (unknown) (no (unknown) (unknown) when she (units (unkno wn) date) elevates the leg. unknown) (unknown) (no (unknown) (unknown) with (units (unkno wn) date) instructions to unknown) follow-up with the orthopedic provider that she was (unknown) (no (unknown) (unknown) worsening pain, (units (unknown) date) persistent unknown) vomiting or other bothersome symptoms] (unknown) (no (unknown) (unknown) x-ray confirmed (units (unknown) date) her bimalleolar unknown) fracture and no need for further reduction at (unknown) (no (unknown) (unknown) yesterday. (units (unk nown) date) X-rays ordered to unknown) assess the fracture. Pain medicine issue of Result panel 6 (unknown) (no (unknown) (unknown) (no value) (units (unk nown) date) unknown) (unknown) (no (unknown) (unknown) <Electronically (units (unknown) date) signed by Virgilio unknown) Rosi Gil> (unknown) (no (unknown) (unknown) *If you do not (units (unknown) date) have a primary unknown) care provider please contact the [facility] (unknown) (no (unknown) (unknown) *Please continue (units (unknown) date) to take your unknown) regular medications as directed. (unknown) (no (unknown) (unknown) *Please follow (units (unknown) date) up with your unknown) primary care provider in 2-3 days, call for an (unknown) (no (unknown) (unknown) *Return to (units (unk nown) date) Emergency unknown) Department if you should have any new, worsening or (unknown) (no (unknown) (unknown) *What to do: (units (u nknown) date) unknown) (unknown) (no (unknown) (unknown) *You have been (units (unknown) date) diagnosed with unknown) bimalleolar fracture of your left ankle. Repeat (unknown) (no (unknown) (unknown) [id number] (units (unkno wn) date)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 (units (unknown) date) Method Room Air unknown) Room Air (unknown) (no (unknown) (unknown) PSYCHIATRIC: The (units (unknown) date) mood is good, no unknown) blunted affect. Speech is clear. Thought (unknown) (no (unknown) (unknown) Patient (units (unkno wn) date) Disposition: Home unknown) (unknown) (no (unknown) (unknown) Patient History (units (unknown) date) unknown) (unknown) (no (unknown) (unknown) Patient is a (units (u nknown) date) 26-year-old unknown) female presents to the emergency room today with (unknown) (no (unknown) (unknown) Patient presents (units (unknown) date) today with unknown) complaint of left ankle after at an alternate ER (unknown) (no (unknown) (unknown) Patient: (units (unkno wn) date) Janna Steele D unknown) MR#: [id number] (unknown) (no (unknown) (unknown) Physical Exam: ? (units (unknown) date) unknown) (unknown) (no (unknown) (unknown) Plan is to (units (unk nown) date) change patient's unknown) medication to Percocet and the dose number of (unknown) (no (unknown) (unknown) Prescriptions: (units (unknown) date) unknown) (unknown) (no (unknown) (unknown) Previous Rx's (units ( unknown) date) unknown) (unknown) (no (unknown) (unknown) Pulse Oximetry (units (unknown) date) 97 02/16/22 19:03 unknown) (unknown) (no (unknown) (unknown) Pulse Oximetry (units (unknown) date) 97 95 unknown) (unknown) (no (unknown) (unknown) Pulse Rate 121 H (units (unknown) date) 02/16/22 19:03 unknown) (unknown) (no (unknown) (unknown) Pulse Rate 121 H (units (unknown) date) unknown) (unknown) (no (unknown) (unknown) R.O.S.: (units (unkno wn) date) unknown) (unknown) (no (unknown) (unknown) Referrals: (units (unk nown) date) unknown) (unknown) (no (unknown) (unknown) Related Data (units (u nknown) date) unknown) (unknown) (no (unknown) (unknown) Resource line at (units (unknown) date) [phone]. unknown) They will ask some questions about your medical (unknown) (no (unknown) (unknown) Respiratory Rate (units (unknown) date) 18 02/16/22 19:03 unknown) (unknown) (no (unknown) (unknown) Respiratory Rate (units (unknown) date) 18 18 unknown) (unknown) (no (unknown) (unknown) Respiratory: No (units (unknown) date) S.O.B. unknown) (unknown) (no (unknown) (unknown) Review of (units (unkn own) date) Systems unknown) (unknown) (no (unknown) (unknown) SULFA Allergy (units ( unknown) date) Unknown Uncoded unknown) 08/26/17 12:20 (unknown) (no (unknown) (unknown) Signed By: (units (unk nown) date) unknown) (unknown) (no (unknown) (unknown) Skin: No rash or (units (unknown) date) associated unknown) abnormalities (unknown) (no (unknown) (unknown) Skin: Normal, no (units (unknown) date) rashes, no unknown) lesions noted. ?? (unknown) (no (unknown) (unknown) Smoking Status: (units (unknown) date) Never smoker unknown) (unknown) (no (unknown) (unknown) Social History (units (unknown) date) unknown) (unknown) (no (unknown) (unknown) Source: patient (units (unknown) date) unknown) (unknown) (no (unknown) (unknown) Stated (units (unkno wn) date) Complaint: Left unknown) Ankle Break, Hurting Worse (unknown) (no (unknown) (unknown) Stop: 02/16/22 (units (unknown) date) 19:35 unknown) (unknown) (no (unknown) (unknown) Stop: 02/16/22 (units (unknown) date) 19:39 unknown) (unknown) (no (unknown) (unknown) Substance Use (units ( unknown) date) Type: does not unknown) use (unknown) (no (unknown) (unknown) Temperature 98.2 (units (unknown) date) F 02/16/22 19:03 unknown) (unknown) (no (unknown) (unknown) Temperature 98.2 (units (unknown) date) F unknown) (unknown) (no (unknown) (unknown) Time Seen by (units (u nknown) date) Provider: unknown) 02/16/22 18:52 (unknown) (no (unknown) (unknown) Visit Report (units (u nknown) date) Forms: Patient unknown) Portal/API (unknown) (no (unknown) (unknown) Vital Signs - 8 (units (unknown) date) hr unknown) (unknown) (no (unknown) (unknown) Vital Signs (units (un known) date) unknown) (unknown) (no (unknown) (unknown) Vital signs: (units (u nknown) date) unknown) (unknown) (no (unknown) (unknown) XR ankle LT min (units (unknown) date) 3V Stat unknown) (unknown) (no (unknown) (unknown) [ ] New (units (unkno wn) date) medication unknown) prescriptions sent to your pharmacy: [ ] (unknown) (no (unknown) (unknown) [ ] No new (units (unk nown) date) medications given unknown) (unknown) (no (unknown) (unknown) [x] New (units (unkno wn) date) medication unknown) written as a paper prescription (unknown) (no (unknown) (unknown) administrative (units (unknown) date) purposes only. I unknown) did not have direct contact with this patient (unknown) (no (unknown) (unknown) alcohol intake (units (unknown) date) frequency: other unknown) (unknown) (no (unknown) (unknown) and wrap. Left (units (unknown) date) foot has good unknown) capillary refill and intact sensation to touch. (unknown) (no (unknown) (unknown) ankle yesterday (units (unknown) date) after stepping unknown) into a ditch and that she reported to [facility] by (unknown) (no (unknown) (unknown) appointment. Let (units (unknown) date) them know you unknown) were seen in the Emergency Department and that we (unknown) (no (unknown) (unknown) arise.] (units (unkno wn) date) unknown) (unknown) (no (unknown) (unknown) ask that you be (units (unknown) date) seen in follow unknown) up. We will electronically transmit a record of (unknown) (no (unknown) (unknown) be following up (units (unknown) date) with ortho for unknown) surgery. States that the ankle pain everything (unknown) (no (unknown) (unknown) complaint of and (units (unknown) date) her left ankle. unknown) States the pain started after she broke her (unknown) (no (unknown) (unknown) concerning (units (unk nown) date) symptoms, such as unknown) [fever greater than 101 F, shaking chills, (unknown) (no (unknown) (unknown) during this (units (un known) date) visit. They were unknown) seen independently by the [facility]. (unknown) (no (unknown) (unknown) follow-up with (units (unknown) date) the orthopedic unknown) provider that she was referred to. (unknown) (no (unknown) (unknown) history and help (units (unknown) date) get you set up unknown) with a doctor in the community. (unknown) (no (unknown) (unknown) in vision or (units (u nknown) date) other related unknown) neurological concerns. (unknown) (no (unknown) (unknown) is aligned and (units (unknown) date) is not appear to unknown) need further reduction. Note x-ray was also (unknown) (no (unknown) (unknown) major (units (unkno wn) date) deformities noted unknown) on Visual Inspection. (unknown) (no (unknown) (unknown) mg tablet (units (unkn own) date) (Percocet) unknown) (unknown) (no (unknown) (unknown) oxycodone-acetam (units (unknown) date) inophen 5 mg-325 unknown) 1 tab PO Q8H PRN pain #20 tabs 02/16/22 (unknown) (no (unknown) (unknown) oxycodone-acetam (units (unknown) date) inophen unknown) [Percocet] 5-325 mg tablet (unknown) (no (unknown) (unknown) pain medicines (units (unknown) date) as ordered and unknown) follow-up with the orthopedic provider that you (unknown) (no (unknown) (unknown) patient is (units (unk nown) date) awaiting x-ray. unknown) Repeat x-ray confirmed a bimalleolar fracture that (unknown) (no (unknown) (unknown) patient's (units (unkn own) date) emergency unknown) department visit. This chart is signed by myself for (unknown) (no (unknown) (unknown) process is (units (unk nown) date) linear, thought unknown) content is appropriate. The voice is without (unknown) (no (unknown) (unknown) relieve the (units (un known) date) pain. States the unknown) pain mildly provide 7/10 but it is about a 10/10 (unknown) (no (unknown) (unknown) reviewed by (units (unknown) date) Hector agrees unknown) that no further reduction is needed at this time. (unknown) (no (unknown) (unknown) she received 5 (units (unknown) date) mg oxycodone for unknown) pain and is taking them every 6 hours did not (unknown) (no (unknown) (unknown) significant (units (un known) date) inflection. unknown) (unknown) (no (unknown) (unknown) tablets given (units ( unknown) date) was 20 patient unknown) advised to take 2 of the 5 mg tablets if she needs (unknown) (no (unknown) (unknown) that time. Left (units (unknown) date) lower extremity unknown) does not feel numb she has good sensation to (unknown) (no (unknown) (unknown) the extremity (units ( unknown) date) but it is just unknown) painful pain feels like a throbbing pain. States (unknown) (no (unknown) (unknown) there sent her (units (unknown) date) ankle and put it unknown) in a splint. States she was told that she will (unknown) (no (unknown) (unknown) this time. (units (unk nown) date) Changed and unknown) increase her pain medication. I suggest you take the (unknown) (no (unknown) (unknown) today's note if (units (unknown) date) your PCP is in unknown) our system (unknown) (no (unknown) (unknown) were referred (units ( unknown) date) to. Please return unknown) to the emergency room if any emergent concerns (unknown) (no (unknown) (unknown) when she (units (unkno wn) date) elevates the leg. unknown) (unknown) (no (unknown) (unknown) worsening pain, (units (unknown) date) persistent unknown) vomiting or other bothersome symptoms] (unknown) (no (unknown) (unknown) x-ray confirmed (units (unknown) date) her bimalleolar unknown) fracture and no need for further reduction at (unknown) (no (unknown) (unknown) yesterday. (units (unk nown) date) X-rays ordered to unknown) assess the fracture. Pain medicine issue of Social History date description facility 2022-02-16 00:00 Never smoked tobacco ([facility] Vital Signs date measurement value units 2022-02-16 00:00 BMI 41.0 kg/m2 2022-02-16 00:00 BP_diastolic 78 mmHg 2022-02-16 00:00 BP_systolic 132 mmHg 2022-02-16 00:00 heart_rate 121 /min 2022-02-16 00:00 height_metric 170.18 cm 2022-02-16 00:00 height_standard 67 in 2022-02-16 00:00 respiration_rate 18 /min 2022-02-16 00:00 temperature_metric 36.78 C 2022-02-16 00:00 temperature_standard 98.2 F 2022-02-16 00:00 weight_metric 118.84 kg 2022-02-16 00:00 weight_standard 262 lb
[2022-05-10 09:12] VITALS: BP 139/73
== END 2022-05-10 09:27 | disposition left against medical advice (07) ==
LOC: ED 07:56
DX: Z53.29 Procedure and treatment not carried out because of patient's decision for other reasons (principal)

== ENCOUNTER 2022-05-11 02:34 | Emergency (ER) | payer MEDICAID ==
[2022-05-11 02:46] VITALS: BP 142/76
--- NOTE | 2022-05-11 03:08 | ED Physician Documentation ---
PD HPI HEENT - Stated complaint Stated Complaint: RIGHT EAR ACHE - Chief complaint Chief Complaint: Heent - History obtained from History obtained from: Patient - History of Present Illness Timing - onset: How many days ago (3) Timing - details: Gradual onset, Constant, Waxing and waning Pain level now: 8 Location: Right ear Improves: Nothing Associated symptoms: No: Fever Recently seen: Clinic - Additional information Additional information: patient c/o 3 days of gradual onset, steadily worsening right ear pain. Denies injury, denies h/o similar symptoms. She is approximately 25 weeks . She was evaluated in outpatient clinic yesterday, prescribed antibiotic drops as well as amoxicillin PO but the pain has continued to worsen despite taking these medications as prescribed. Denies fevers. She checked in as ED patient to this ED 05/10 but LWBS. Returns due to pain that continues to steadily worsen (right ear). 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: Ovarian cysts : None HEENT: None Psych: Depression, Post traumatic stress disorder Musculoskeletal: None Derm: None - Past Surgical History Past Surgical History: Yes Ortho: Other - Present Medications Home Medications: Ambulatory Orders Medication Instructions Recorded Confirmed Pnv No.95/Ferrous Fum/Folic AC 1 tab PO DAILY 03/08/22 05/10/22 [ Tablet] Amox/Clav 875/125 [Augmentin 1 tablet PO Q12H 7 Days #14 tablet 05/11/22 875/125 Tab] HYDROcod/ACETAM 5/325 [Stanley 5/325] 1 - 2 tablet PO Q6H PRN #14 tablet 05/11/22 - Allergies Allergies/Adverse Reactions: Allergies Allergy/AdvReac Type Severity Reaction Status Date / Time Sulfa (Sulfonamide Allergy Intermediate Hives Verified 05/11/22 02:46 Antibiotics) - Social History Does the pt smoke?: No Smoking Status: Never smoker Does the pt drink ETOH?: No Does the pt have substance abuse?: No - Immunizations Immunizations are current?: No Immunizations: Other immun not current - POLST Patient has POLST: No POLST Status: Full Code PD ED PE NORMAL - Vitals Vital signs reviewed: Yes - General General: Alert and oriented X 3, Well developed/nourished, Other (appears uncomfortable at times) - HEENT HEENT: Pharynx benign, Other (left TM, left EAC normal (scant cerumen that does not preclude full visualization of the left TM)) - Respiratory Respiratory: No respiratory distress, Clear bilaterally PD ED PE EXPANDED - HEENT HEENT: Other (scant erythema noted at external verge of right EAC. there is increased pain with traction on pinna, pressure on tragus. The EAC is edematous with scant purulent d/c . Unable to adequately visualize right TM due to canal swelling. There is no overt facial swelling) Results - Vitals Vitals: Oxygen O2 Source Room air PD Medical Decision Making - ED course Complexity details: considered differential, d/w patient ED course: right external otitis. She has just completed 2 days of PO antibiotics as well as antibiotic drops for the OE. I will change from amoxicillin to Augmentin and from polytrim to ciprodex drops. She is also given vicodin with rx for same after we discussed risks and benefits of a narcotic vs nonnarcotic option for pain control , particularly in light of her . She has been using tylenol without improvement. While the swelling precluded compete visualization of the TM, I was able to visualize very small , central portion . Using her left ear exam for comparison, I do not think there is much obstruction and thus I did not place an ear wick: I explained to patient how she should pull light traction on helix/antihelix when using the drops, as this should adequately open the EAC to allow for the antibiotic drops to get all the way to the TM, obviating the need for what would certainly be a painful procedure in placing ear wick. Return precautions discussed, including possible need for ear wick placement should her canal shut further. I am prescribing a short course of short-acting opioid medication for this patient. I have reviewed the patient's ELASTIC TAPE INSERTER and no concerning findings were noted. I have discussed with the patient that opioids are for short term therapy only and will not be refilled from the ED. Departure - Departure Disposition: 01 Home, Self Care Clinical Impression: External otitis of right ear Qualifiers: Otitis externa type: unspecified type Chronicity: acute Qualified Code(s): H60.501 - Unspecified acute noninfective otitis externa, right ear Condition: Good Instructions: ED Otitis Externa Prescriptions: Amox/Clav 875/125 [Augmentin 875/125 Tab] 1 tablet PO Q12H 7 Days #14 tablet HYDROcod/ACETAM 5/325 [Stanley 5/325] 1 - 2 tablet PO Q6H PRN #14 tablet PRN Reason: Pain Comments: You have a significant right ear infection. On the exam, the infection is an outer ear infection, although the amount of swelling of the ear canal prevents visualization of the eardrum. In order to diagnose a middle ear infection, I would need to see the eardrum, and since I cannot visualize the eardrum, I am advising her to continue with an oral antibiotic in addition to the antibiotic drops. Furthermore, since your symptoms are worsening despite using the antibiotic drops and oral antibiotics that have already been prescribed, I am providing with prescriptions for a different oral antibiotic (amoxicillin with another ingredient that makes it significantly more effective), as well as a di fferent antibiotic drop. I have also provided a prescription for Vicodin (narcotic pain medication). I am prescribing a short course of narcotic pain medication for you. These are potentially dangerous and addictive medications that should be used carefully. These medications may constipate you. Take an noxl-woh-ndzvrqb stool softener (docusate) twice daily with plenty of water while taking these medications. If you go 24 hours without a bowel movement, take zccu-xax-[id number] miralax, per package instructions. Do not drink or drive while taking these medications. If you received narcotic or sedating medications while in the emergency department, do not drive for 24 hours. Store this medication in a safe, secure place and out of reach of children. It is a violation of federal law to give or sell this medication to another person or to use in a manner other than prescribed. The ED will not refill narcotic prescriptions, including prescriptions lost or stolen. To dispose of unwanted medications: 1. [facility] at [address] in [place] has a medication drop box. They accept prescription medications (in pill form) Thursday through Thursday 9:00 a.m. to 5:00 p.m. 2. The [facility] accepts prescription medications (in pill form only) for disposal year round. Call for more information. 3. Contact the [facility] for the next [facility] sponsored prescription drug collection event. , [phone], or [phone]; Discharge Date/Time: 05/11/22 03:55
[2022-05-11] MEDS ORDERED: AMOX/CLAV 875 MG/125 MG TABLET PO STA (03:33)
[2022-05-11] MEDS ORDERED: HYDROcod/ACET 5/325 Prepack 4 PO STA (03:34)
--- OUTSIDE RECORDS SUMMARY | 2022-05-11 05:44 | EXTERNAL MEDICAL SUMMARY RPT | Continuity of Care Document ---
:1995 Author Organization [facility] Address [address] [place] [address] Phone Care Team Providers Name Role Phone Carey Sandoval Unavailable Unavailable Allergies No information. Encounters No information. Functional Status No information. Immunizations No information. Medications date description facility 2022-02-16 00:00 Oxycodone-Acetaminophen [facility] l Problems date description facility 2022-02-16 00:00 fracture of tibia and fibula (disorder) [facility] 2022-02-16 00:00 closed fracture of unspecified part of fibula [facility] with tibia 2022-02-16 00:00 unspecified fracture of shaft of unspeci [facility] tibia, initial encounter for closed frac ture Procedures date description facility 2022-02-16 00:00 XR ankle LT min 3V [facility] Results/Labs test date author facility value unit interpret ation Result panel 1 (unknown) (no (unknown) (unknown) (no value) (units (unk nown) date) unknown) (unknown) (no (unknown) (unknown) [id number] (units (unkn own) date) unknown) (unknown) (no [...] Accession (units (unkn own) date) Number: unknown) [id number] (unknown) (no (unknown) (unknown) Age/Sex: 26 / F (units (unknown) date) Date of Service: unknown) (unknown) (no (unknown) (unknown) [employer] Senior (units ( unknown) date) [id number] unknown) (unknown) (no (unknown) (unknown) Approved by: (units (u nknown) date) Gold Brown, unknown) Alexsandra on 02/16/2022 at 20:18 (unknown) (no (unknown) (unknown) Bones: Mildly (units ( unknown) date) displaced unknown) fracture of the medial and posterior malleoli of the (unknown) (no (unknown) (unknown) COMPARISON: (units (un known) date) [facility] unknown) Hospital, CR, XR ANKLE 1 OR 2 VIEWS LEFT, (unknown) (no (unknown) (unknown) : 1995 (units (unknown) date) Acct:[id number] unknown) (unknown) (no (unknown) (unknown) Dictated by: (units (u nknown) date) Gold Brown, unknown) Alexsandra on 02/16/2022 at 20:14 (unknown) (no (unknown) (unknown) FINDINGS: (units (unkn own) date) unknown) (unknown) (no (unknown) (unknown) IMPRESSION: (units (un known) date) unknown) (unknown) (no (unknown) (unknown) INDICATIONS: (units (u nknown) date) Bimaleor fx with unknown) continued pain (unknown) (no (unknown) (unknown) [facility] (units (unknown) date) unknown) (unknown) (no (unknown) [...] wn) date) unknown) (unknown) (no (unknown) (unknown) [facility] (units ( unknown) date) Hospital, CR, [...] known) unknown) (unknown) (no date) (unknown) (unknown) [id number] (units (unkn own) unknown) (unknown) (no date) [...] (unknown) : (units (unkn own) 1995 unknown) Acct:[id number] (unknown) (no date) (unknown) (unknown) Date of [...] Signs: unknown) (unknown) (no date) (unknown) (unknown) [place] (units (unkn own) [facility] [address] unknown) [address] [place] [id number] (unknown) (no date) (unknown) (unknown) Mode of [...] date) (unknown) (unknown) Patient: (units (unkn own) Elain Steelelyla unknown) D MR#: [id number] (unknown) (no [...] a ditch and that she reported to [facility] by (unknown) (no date) (unknown) (unknown) be [...] nown) date) unknown) (unknown) (no (unknown) (unknown) [id number] (units (unkno wn) date) unknown) (unknown) (no [...] (unknown) (unknown) : 1995 (units (unknown) date) Acct:[id number] unknown) (unknown) (no (unknown) (unknown) Date of [...] date) Signs: unknown) (unknown) (no (unknown) (unknown) [facility] (units (unknown) date) [address] [place] [address] unknown) [place] [address] (unknown) (no (unknown) (unknown) Mode of arrival: [...] a ditch and that she reported to [facility] by (unknown) (no (unknown) (unknown) be following [...] nown) date) unknown) (unknown) (no (unknown) (unknown) [id number] (units (unkno wn) date) unknown) (unknown) (no [...] (unknown) (unknown) : 1995 (units (unknown) date) Acct:[id number] unknown) (unknown) (no (unknown) (unknown) Date of [...] date) Signs: unknown) (unknown) (no (unknown) (unknown) [facility] (units (unknown) date) [address] [place] [address] unknown) [place] [address] (unknown) (no (unknown) (unknown) MDM - Extremity [...] a ditch and that she reported to [facility] by (unknown) (no (unknown) (unknown) be following [...] primary unknown) care provider please contact the [facility] (unknown) (no (unknown) (unknown) *Please continue (units [...] left ankle. Repeat (unknown) (no (unknown) (unknown) [id number] (units (unkno wn) date) unknown) (unknown) (no [...] (unknown) (unknown) : 1995 (units (unknown) date) Acct:[id number] unknown) (unknown) (no (unknown) (unknown) Date of [...] for Fracture unknown) (unknown) (no (unknown) (unknown) [facility] (units (unknown) date) [address] [place] [address] unknown) [place] [address] (unknown) (no (unknown) (unknown) Left lower leg [...] (unknown) Resource line at (units (unknown) date) [phone]. unknown) They will ask some questions about [...] a ditch and that she reported to [facility] by (unknown) (no (unknown) (unknown) appointment. Let [...] primary unknown) care provider please contact the [facility] (unknown) (no (unknown) (unknown) *Please continue (units [...] left ankle. Repeat (unknown) (no (unknown) (unknown) [id number] (units (unkno wn) date) unknown) (unknown) (no [...] (unknown) (unknown) : 1995 (units (unknown) date) Acct:[id number] unknown) (unknown) (no (unknown) (unknown) Date of [...] for Fracture unknown) (unknown) (no (unknown) (unknown) [facility] (units (unknown) date) [address] [place] [address] Street unknown) [place] [address] (unknown) (no (unknown) (unknown) Left lower leg [...] (unknown) Resource line at (units (unknown) date) [phone]. unknown) They will ask some questions about [...] primary unknown) care provider please contact the [facility] (unknown) (no (unknown) (unknown) *Please continue (units [...] left ankle. Repeat (unknown) (no (unknown) (unknown) [id number] (units (unkno wn) date) unknown) (unknown) (no [...] (unknown) (unknown) Activity (units (unkno wn) date) Restrictions/Hermelidno unknown) tional Instructions: (unknown) (no (unknown) (unknown) [...] (unknown) (unknown) : 1995 (units (unknown) date) Acct:[id number] unknown) (unknown) (no (unknown) (unknown) Date of [...] for Fracture unknown) (unknown) (no (unknown) (unknown) [facility] (units (unknown) date) [address] [place] [address] unknown) [place] [address] (unknown) (no (unknown) (unknown) Last Admin: (units [...] (unknown) Resource line at (units (unknown) date) [phone]. unknown) They will ask some questions about [...] a ditch and that she reported to [facility] by (unknown) (no (unknown) (unknown) appointment. Let [...] description facility 2022-02-16 00:00 Never smoked tobacco ([facility] Vital Signs date measurement value units [...]
== END 2022-05-11 03:55 | disposition home or self-care (01) ==
LOC: ED 02:34
DX: O99.891 Other specified diseases and conditions complicating pregnancy (principal); H60.501 Unspecified acute noninfective otitis externa, right ear; Z3A.00 Weeks of gestation of pregnancy not specified
CPT/HCPCS: 99282; A9270

== ENCOUNTER 2022-06-12 09:03 | Outpatient (CLI) | payer MEDICAID ==
[2022-06-12 11:53] LABS: HCT - HEMATOCRIT 36.5 % (37.0-47.0); HGB - HEMOGLOBIN 11.2 g/dL (12.0-16.0); MEAN CORPUSCULAR HEMOGLOBIN 27.9 pg (27.0-31.0); MEAN CORPUSCULAR HGB CONC 30.7 g/dL (32.0-36.0); MEAN PLATELET VOLUME 10.9 fL (7.9-10.8); RED BLOOD COUNT 4.01 10^6/uL (4.20-5.40); RED CELL DISTRIBUTION WIDTH 14.5 % (12.0-15.0); WHITE BLOOD COUNT 14.3 x10^3/uL (4.8-10.8)
== END 2022-06-12 09:04 | disposition home or self-care (01) ==
LOC: LAB.N 09:03
PROVIDERS: ATTEND Obstetrics & Gynecology
DX: O99.212 Obesity complicating pregnancy, second trimester (principal)
CPT/HCPCS: 36415; 82950; 85027

== ENCOUNTER 2022-06-26 18:50 | Outpatient (CLI) | payer MEDICAID ==
--- NOTE | 2022-06-27 16:46 | Ultrasound Report ---
PROCEDURE: OB F/U or Repeat INDICATIONS: SUPERVISION OF OUTSIDE/PRIOR DATING DATA: Last menstrual period (LMP): 10/27/2021. LMP-based estimated date of delivery (DAREN): 08/03/2022. First dating scan (date and location): 01/07/2022. Estimated date of delivery (DAREN) from first dating scan: 08/21/2022. The below data below was generated using the ultrasound DAREN of 08/21/2022 TECHNIQUE: Real-time scanning was performed of the fetus, with image documentation and biometric measurements. Endovaginal scanning: Not performed COMPARISON: 04/04/2022, 01/08/2022 FINDINGS: General: A single living intrauterine gestation is present. Presentation: Vertex Placenta: Placental position is posterior, without previa. Amniotic fluid index: 17.5 cm, normal for gestational age. Largest pocket 5.4 cm heart rate: 135 beats per minute. Maternal cervical canal: Not well seen cm long; normal length is 2.5 cm or more. biometrics: Biparietal diameter: 8.2 cm, 33 weeks, 0 days Head circumference: 30.2 cm, 33 weeks, 3 days Abdominal circumference: 27.5 cm, 31 weeks, 4 days Femur length: 6.1 cm, 31 weeks, 6 days Estimated gestational age from initial scan: 32 weeks, 0 days Composite gestational age from present scan: 32 weeks 3 days Estimated weight and percentile: 1876 g, 33rd percentile Measurement variability in biometric dating: +/- 10 days from 12-20 weeks gestation, +/- 2 weeks from 20-30 weeks gestation, +/- 3 weeks at 30 weeks gestation or more. Other: Incidental note of nuchal cord. Large, simple right ovarian cyst measures 10.2 x 6.1 x 9.9 cm on the current study, roughly stable co mpared to 01/08/2022 IMPRESSION: 1. Single living intrauterine demonstrates appropriate growth. 2. Right ovarian cyst is roughly stable compared to the prior study measuring up to 10.2 cm. 3. Estimated weight at the 33rd percentile Reviewed by: Marta Trammell MD on 06/27/2022 4:45 PM PST Approved by: Marta Trammell MD on 06/27/2022 4:45 PM PST Station ID: [id number]
== END 2022-06-26 18:51 | disposition home or self-care (01) ==
LOC: DI 18:50
PROVIDERS: ATTEND Obstetrics & Gynecology
DX: O09.92 Supervision of high risk pregnancy, unspecified, second trimester (principal); O99.212 Obesity complicating pregnancy, second trimester; O34.83 Maternal care for other abnormalities of pelvic organs, third trimester; N83.291 Other ovarian cyst, right side; Z3A.32 32 weeks gestation of pregnancy

== ENCOUNTER 2022-07-28 08:00 | Outpatient (CLI) | payer MEDICAID | END 2022-07-28 23:59 | disposition home or self-care (01) | LOC: LAB 08:00 | PROVIDERS: ATTEND Obstetrics & Gynecology | DX: Z36.85 Encounter for antenatal screening for Streptococcus B (principal) | CPT/HCPCS: 87797 ==

== ENCOUNTER 2022-08-04 12:10 | Outpatient (CLI) | payer MEDICAID ==
[2022-08-04 12:56] LABS: BASOPHILS % (AUTO) 0.2 %; EOSINOPHILS # (AUTO) 0.1 10^3/uL (0.0-0.7); EOSINOPHILS % (AUTO) 0.6 %; HCT - HEMATOCRIT 36.3 % (37.0-47.0); HGB - HEMOGLOBIN 11.3 g/dL (12.0-16.0); LYMPHOCYTES # (AUTO) 1.7 10^3/uL (1.5-3.5); LYMPHOCYTES % (AUTO) 14.8 %; MEAN CORPUSCULAR HEMOGLOBIN 28.3 pg (27.0-31.0); MEAN CORPUSCULAR HGB CONC 31.1 g/dL (32.0-36.0); MEAN PLATELET VOLUME 10.5 fL (7.9-10.8); MONOCYTES # (AUTO) 0.8 10^3/uL (0.0-1.0); MONOCYTES % (AUTO) 6.8 %; NEUTROPHILS % (AUTO) 77.1 %; PLT - PLATELET COUNT 333 10^3/uL (130-450); RED BLOOD COUNT 3.99 10^6/uL (4.20-5.40); RED CELL DISTRIBUTION WIDTH 14.8 % (12.0-15.0); WHITE BLOOD COUNT 11.6 x10^3/uL (4.8-10.8)
[2022-08-04 13:12] LABS: ALBUMIN 2.5 g/dL (3.2-5.5); ALBUMIN/GLOBULIN RATIO 0.6 (1.0-2.2); BILIRUBIN,TOTAL 0.2 mg/dL (0.2-1.0); CALCIUM 8.5 mg/dL (8.5-10.3); CREATININE 0.4 mg/dL (0.4-1.0); POTASSIUM 3.6 mmol/L (3.5-5.0); TOTAL PROTEIN 6.9 g/dL (6.7-8.2)
[2022-08-04 13:25] LABS: CREATININE,URINE 70.3 mg/dL; PROTEIN/CREATININE RATIO,URINE 0.2 (<=0.2)
[2022-08-04 14:26] VITALS: BP 125/56
--- NOTE | 2022-08-04 18:35 | PROVIDER PROGRESS NOTE ---
- HPI Chief Complaint: Hypertension/PIH Current : Current EDU 08/21/22 Gestation 37 Weeks and 4 Days 4 Para 2 Vital Signs Temperature 98.8 F 08/04/22 12:57 Heart Rate 95 08/04/22 12:57 Respiratory Rate 16 08/04/22 12:57 Blood Pressure 125/56 L 08/04/22 12:57 Temperature 98.8 F 08/04/22 12:57 Heart Rate 95 08/04/22 12:57 Respiratory Rate 16 08/04/22 12:57 Blood Pressure 125/56 L 08/04/22 12:57 O2 Saturation If not protocol: Oxygen Flow, liters/minute - Procedures OB Procedure Performed: NST Diagnosis/Indication for NST: Gestational Hypertension NST Procedure: NST Procedure Start Date 08/04/22 Start Time 12:20 Stop Time 13:22 Patient States Movement Yes: Reports decreased this morning EFM: 140s, moderate variability, positive 15x15 accelerations, no decelerations Sorrel: no contractions NST reactive/Cat 1 Performed and read 08/04/22 Service Date of procedure: 08/04/22 - Plan Plan: 26yo at 37.4w sent from routine OB visit for BP elevated 153/88. Normotensive in triage. Denies headache, shortness of breath, abdominal pain. care at [facility] and complicated by BMI 46. VSS GEN: NAD CV: Regular rate Resp: no distress NST reactive 26yo at 37.4w, elevated BP reading x1 in - NST reactive - Normotensive now, preeclampsia labs reviewed CBC, CMP, uric acid, and PCR and benign - Discharge, preeclampsia precautions, follow up 1w
== END 2022-08-04 14:15 | disposition home or self-care (01) ==
LOC: WFO 12:10 → FBP 12:11 → WFO 14:15
PROVIDERS: ATTEND Obstetrics & Gynecology
DX: O99.891 Other specified diseases and conditions complicating pregnancy (principal); R03.0 Elevated blood-pressure reading, without diagnosis of hypertension; Z3A.37 37 weeks gestation of pregnancy
CPT/HCPCS: 36415; 59025; 80053; 82570; 84156; 84550; 85025; 99213

== ENCOUNTER 2022-08-09 18:54 | Outpatient (CLI) | payer MEDICAID ==
[2022-08-09 19:32] VITALS: BP 134/68
--- NOTE | 2022-08-09 20:57 | PROCEDURE REPORT ---
- HPI Vital Signs Temperature 98.3 F 08/09/22 19:07 Heart Rate 87 08/09/22 19:07 Respiratory Rate 16 08/09/22 19:07 Blood Pressure 155/71 H 08/09/22 19:07 Temperature 98.3 F 08/09/22 19:07 Heart Rate 87 08/09/22 19:07 Respiratory Rate 16 08/09/22 19:07 Blood Pressure 134/68 H 08/09/22 19:29 O2 Saturation If not protocol: Oxygen Flow, liters/minute - NST Procedure NST Procedure Start Time 19:00 Stop Time 20:00 No need for stimulation Positive movement Very mild irregular contractions Baseline: 135 Moderate variability Present acceleration 15 x 15 Absent deceleration - Results and Plan Findings/Impression: Reactive nonstress test Plan: Return back to the clinic to keep the regular appointment and schedule to be induced at 39 weeks
--- NOTE | 2022-08-09 21:06 | PROVIDER PROGRESS NOTE ---
- HPI Current : Current EDU 08/23/22 Gestation 38 Weeks and 0 Days 4 Para 2 Vital Signs Temperature 98.3 F 08/09/22 19:07 Heart Rate 87 08/09/22 19:07 Respiratory Rate 16 08/09/22 19:07 Blood Pressure 155/71 H 08/09/22 19:07 Temperature 98.3 F 08/09/22 19:07 Heart Rate 87 08/09/22 19:07 Respiratory Rate 16 08/09/22 19:07 Blood Pressure 134/68 H 08/09/22 19:29 O2 Saturation If not protocol: Oxygen Flow, liters/minute - Exam Cervix 4 cm with a 70% effacement and -1 station membranes intact vertex presentation - Procedures OB Procedure Performed: NST Diagnosis/Indication for NST: labor NST Procedure: NST Procedure Start Date 08/09/22 Start Time 19:00 Stop Time 20:00 Vibroacoustic Stimulation Used No Patient States Movement Yes Baseline: 135 Moderate variability Absent deceleration Present acceleration 15 x 15 Impression: Reactive nonstress test Service Date of procedure: 08/09/22 - Plan Plan: More than 1 hour observation did not reveal any significant uterine contractions and no changes was noted. She was explained those findings and the indication for the induction and augmentation and she agreed that she does not meet any criteria therefore she is going to be discharged today and will be followed up at the clinic for further management
== END 2022-08-09 21:12 | disposition home or self-care (01) ==
LOC: WFO 18:54 → FBP 18:57 → WFO 21:12
PROVIDERS: ATTEND Obstetrics & Gynecology
DX: Z34.93 Encounter for supervision of normal pregnancy, unspecified, third trimester (principal)
CPT/HCPCS: 59025; 99213; 99214

== ENCOUNTER 2022-08-16 07:52 | Inpatient (IN) | payer MEDICAID ==
[2022-08-16] MEDS ORDERED: LABETALOL 20 MG/4 ML SYRINGE IVP PRN ×3 (08:44)
[2022-08-16] MEDS ORDERED: AMPICILLIN 2 GM in SODIUM CHLORIDE 0.9% MINIBAG 100 ML IV ONE (08:44)
[2022-08-16] MEDS ORDERED: hydrALAZINE INJ 20 MG/ML VIAL IVP PRN ×2 (08:44)
[2022-08-16] MEDS ORDERED: OXYTOCIN 10 UNIT/ML VIAL IM PRN (08:44)
[2022-08-16] MEDS ORDERED: miSOPROStoL 200 MCG TABLET PR PRN (08:44)
[2022-08-16] MEDS ORDERED: miSOPROStoL 200 MCG TABLET BC PRN (08:44)
[2022-08-16] MEDS ORDERED: fentaNYL 100 MCG/2 ML VIAL IVP PRN (08:44)
[2022-08-16] MEDS ORDERED: SODIUM CHLORIDE FLUSH 0.9% 10 ML SYRINGE IVP PRN (08:44)
[2022-08-16] MEDS ORDERED: TRANEXAMIC ACID IN NACL 1,000 MG/100 ML BAG IV PRN (08:44)
[2022-08-16] MEDS ORDERED: NIFEdipine 10 MG CAPSULE PO PRN (08:44)
[2022-08-16] MEDS ORDERED: CARBOPROST TROMETHAMINE 250 MCG/ML AMP IM PRN (08:44)
[2022-08-16] MEDS ORDERED: OXYTOCIN/SODIUM CHLORIDE 500 ML IV PRN ×2 (08:44→20:15)
[2022-08-16] MEDS ORDERED: lidocaine 1% 20 ML MDV ID PRN (08:44)
[2022-08-16] MEDS ORDERED: METHYLERGONOVINE 0.2 MG/ML VIAL IM PRN (08:44)
[2022-08-16] MEDS ORDERED: LACTATED RINGERS 1,000 ML IV SCH ×2 (09:00→20:00)
[2022-08-16] MEDS ORDERED: OXYTOCIN/SODIUM CHLORIDE 500 ML IV SCH (09:00)
[2022-08-16] MEDS ORDERED: SODIUM CHLORIDE FLUSH 0.9% 10 ML SYRINGE IVP SCH (09:00)
[2022-08-16] MEDS ORDERED: AMPICILLIN 2 GM VIAL IV ONE (09:31)
--- NOTE | 2022-08-16 10:20 | HISTORY & PHYSICAL EXAMINATION ---
Admit History - Visit Reason Visit Reason: Other (Induction of labor) - : 4 Parity: 2 Care: positive: [facility] Smoking Status: Never smoker - Mother's Labs Mother's Blood Type: positive: A Mother's RH: positive: Positive GBS: positive: Group B Strep Positive Rubella Status: positive: Non-immune - Other Maternal History Other Maternal History: Med: right ankle fracture this , MRSA, BMI 48, anxiety/depression Surg: right ankle Fam: noncontributory Social: , denies [place] Meds/Allgy - Home Medications Home Medications: Ambulatory Orders Medication Instructions Recorded Confirmed Pnv No.95/Ferrous Fum/Folic AC 1 tab PO DAILY 03/08/22 05/10/22 [ Tablet] Amox/Clav 875/125 [Augmentin 1 tablet PO Q12H 7 Days #14 tablet 05/11/22 875/125 Tab] HYDROcod/ACETAM 5/325 [[place] 5/325] 1 - 2 tablet PO Q6H PRN #14 tablet 05/11/22 - Allergies Allergies/Adverse Reactions: Allergies Allergy/AdvReac Type Severity Reaction Status Date / Time Sulfa (Sulfonamide Allergy Intermediate Hives Verified 05/11/22 02:46 Antibiotics) Review of Systems - All Other Systems All Other Systems: reports: Reviewed and negative Physical - Monitoring Heart Rate Baseline: 140 Strip Review: positive: Category I - Presentation Presentation: positive: Vertex (EFW 3600g, placenta posterior) - Vaginal Exam Membranes: positive: Membranes intact Dilation (in cm): 4 Effacement (%): 50 Station: positive: -3 Cervical Position: positive: Midposition Plan for Labor - Plan For Labor I expect patient to be DC'd or transferred within 96 hours.: Yes Plan for Labor: 26yo at 39.2 admitted for elective IOL - Admit - Start ampicillin for GBS pos now and Pitocin - AROM when larry - Anticipate today
[2022-08-16 10:52] LABS: BASOPHILS % (AUTO) 0.3 %; EOSINOPHILS # (AUTO) 0.1 10^3/uL (0.0-0.7); EOSINOPHILS % (AUTO) 0.9 %; HCT - HEMATOCRIT 35.7 % (37.0-47.0); HGB - HEMOGLOBIN 11.3 g/dL (12.0-16.0); LYMPHOCYTES # (AUTO) 1.7 10^3/uL (1.5-3.5); LYMPHOCYTES % (AUTO) 14.8 %; MEAN CORPUSCULAR HEMOGLOBIN 28.8 pg (27.0-31.0); MEAN CORPUSCULAR HGB CONC 31.7 g/dL (32.0-36.0); MEAN CORPUSCULAR VOLUME 91.1 fL (81.0-99.0); MEAN PLATELET VOLUME 11.4 fL (7.9-10.8); MONOCYTES # (AUTO) 0.9 10^3/uL (0.0-1.0); MONOCYTES % (AUTO) 7.8 %; NEUTROPHILS # (AUTO) 8.8 10^3/uL (1.5-6.6); NEUTROPHILS % (AUTO) 75.6 %; PLT - PLATELET COUNT 324 10^3/uL (130-450); RED BLOOD COUNT 3.92 10^6/uL (4.20-5.40); WHITE BLOOD COUNT 11.6 x10^3/uL (4.8-10.8)
[2022-08-16 11:07] LABS: ALBUMIN 2.6 g/dL (3.2-5.5); ALBUMIN/GLOBULIN RATIO 0.6 (1.0-2.2); BILIRUBIN,TOTAL 0.3 mg/dL (0.2-1.0); CALCIUM 8.8 mg/dL (8.5-10.3); CREATININE 0.5 mg/dL (0.4-1.0); POTASSIUM 3.9 mmol/L (3.5-5.0); TOTAL PROTEIN 7.1 g/dL (6.7-8.2)
--- NOTE | 2022-08-16 13:30 | PROVIDER PROGRESS NOTE ---
Labor Progress Note - Uterine Monitoring Uterine Monitoring Mode: positive: External toco Contraction Frequency (min/apart): 4 Contraction Intensity: positive: Mild to moderate Uterine Resting Tone: positive: Soft - Monitoring Monitor Mode: positive: External ultrasound Heart Rate Baseline: 130 Heart Rate Variability: positive: Moderate (6-25 bmp) Accelerations: positive: Present, 15x15 Decelerations: positive: None Strip Review: positive: Category I - Vaginal Exam Dilation (in cm): 6 Effacement (%): 100 Station: -2 Cervical Position: Midposition - Labor Progress Note Labor Progress Note/Additional Text: 26yo at 39.2w admitted for IOL - Ampicillin x1, next 1400 - AROM clear 1315 - Pitocin at 4, continue - Anticipate
[2022-08-16] MEDS: AMPICILLIN 1 GM in SODIUM CHLORIDE 0.9% MINIBAG 100 ML IV SCH ×2 (14:22→18:14)
[2022-08-16] MEDS ORDERED: ROPIVACAINE 0.2% 200 MG/100 ML BAG EP ONE (15:43)
[2022-08-16] MEDS ORDERED: NALOXONE 0.4 MG/ML VIAL IVP PRN (16:18)
[2022-08-16] MEDS ORDERED: ePHEDrine 50 MG/ML VIAL IVP PRN (16:18)
[2022-08-16] MEDS ORDERED: ROPIVACAINE 0.2% 200 MG/100 ML BAG EP PRN (16:18)
--- NOTE | 2022-08-16 16:18 | ANESTHESIA ---
Pre-Anesthesia VS, & Labs - Diagnosis active labor - Procedure vaginal delivery Vital Signs: Temp Pulse Resp BP Pulse Ox O2 Flow Rate 36.6 C 84 20 131/61 H 08/16/22 08:58 08/16/22 08:58 08/16/22 08:58 08/16/22 08:58 Height: 5 ft 7 in Weight (kg): 136.531 kg Body Mass Index: 47.1 BMI Classification: Morbidly Obese - NPO Other (clear liquids) - Is Patient ?: Yes - Lab Results Current Lab Results: Laboratory Tests 08/16/22 09:42: Sodium 137, Potassium 3.9, Chloride 105, Carbon Dioxide 23, Anion Gap 9.0, BUN 8, Creatinine 0.5, Estimated GFR (MDRD) 149, Glucose 86, C alcium 8.8, Total Bilirubin 0.3, AST 13, ALT 11, Alkaline Phosphatase 140 H, Total Protein 7.1, Albumin 2.6 L, Globulin 4.5 H, Albumin/Globulin Ratio 0.6 L 08/16/22 08:30: WBC 11.6 H, RBC 3.92 L, Hgb 11.3 L, Hct 35.7 L, MCV 91.1, MCH 28.8, MCHC 31.7 L, RDW 15.0, Plt Count 324, MPV 11.4 H, Neut # (Auto) 8.8 H, Lymph # (Auto) 1.7, [place] # (Auto) 0.9, Eos # (Auto) 0.1, Baso # (Auto) 0.0, Absolute Nucleated RBC 0.00, Nucleated RBC % 0.0 08/16/22 08:30: Blood Type A POSITIVE, Antibody Screen NEGATIVE Lab results reviewed: Yes Fish Bones: 08/16/22 08:30 08/16/22 09:42 Home Medications and Allergies Active Medications Carboprost Tromethamine (Carboprost Tromethamine 250 Mcg/Ml Amp) 250 mcg IM .ONCE PRN PRN Reason: Hemorrhage Fentanyl (Fentanyl 100 Mcg/2 Ml Vial) 50 mcg IVP Q1H PRN PRN Reason: Severe Pain (score 7-10) Hydralazine HCl (Hydralazine Inj 20 Mg/Ml Vial) 5 - 10 mg IVP Q20M PRN; Protocol PRN Reason: SBP> or= 160 OR DBP> or= 110 Hydralazine HCl (Hydralazine Inj 20 Mg/Ml Vial) 10 mg IVP .ONCE PRN; Protocol PRN Reason: SBP> or= 160 OR DBP> or= 110 Oxytocin/Sodium Chloride (Pitocin/Sodium Chloride) 500 mls @ 999 mls/hr IV PRN PRN; Protocol PRN Reason: POST- HEMORR PREVENTION Tranexamic Acid (Tranexamic 1,000 Mg/100ml-Nacl) 1,000 mg in 100 mls @ 600 mls/hr IV Q30M PRN PRN Reason: EBL >1200mL and within 3hr Lactated Ringer's (Lr) 1,000 mls @ 125 mls/hr IV .Q8H ALPESH Oxytocin/Sodium Chloride (Pitocin/Sodium Chloride) 500 mls @ 2 mls/hr IV TITR ALPESH; Protocol Last Admin: 08/16/22 10:22 Dose: 2 milliunit/min, 2 mls/hr Ampicillin Sodium 1 gm/ Sodium (Chloride) 100 mls @ 200 mls/hr IV Q4H ALPESH Last Admin: 08/16/22 14:22 Dose: 200 mls/hr Labetalol HCl (Labetalol 20 Mg/4 Ml Syringe) 20 - 80 mg IVP Q10M PRN; Protocol PRN Reason: SBP> or= 160 OR DBP> or= 110 Labetalol HCl (Labetalol 20 Mg/4 Ml Syringe) 20 mg IVP .ONCE PRN; Protocol PRN Reason: SBP> or= 160 OR DBP> or= 110 Labetalol HCl (Labetalol 20 Mg/4 Ml Syringe) 20 - 40 mg IVP Q10M PRN; Protocol PRN Reason: SBP> or= 160 OR DBP> or= 110 Lidocaine HCl (Lidocaine 1% 20 Ml Mdv) 20 ml ID .ONCE PRN PRN Reason: PERINEAL REPAIR Stop: 08/19/22 08:45 Methylergonovine Maleate (Methylergonovine 0.2 Mg/Ml Vial) 0.2 mg IM .ONCE PRN PRN Reason: Hemorrhage Misoprostol (Misoprostol 200 Mcg Tablet) 600 mcg BC .ONCE PRN PRN Reason: Hemorrhage Misoprostol (Misoprostol 200 Mcg Tablet) 800 mcg [place] .ONCE PRN PRN Reason: Hemorrhage Nifedipine (Nifedipine 10 Mg Capsule) 10 - 20 mg PO Q20M PRN; Protocol PRN Reason: SBP> or= 160 OR DBP> or= 110 Oxytocin (Oxytocin 10 Unit/Ml Vial) 10 unit IM .ONCE PRN PRN Reason: Step One if no IV access. Sodium Chloride (Sodium Chloride Flush 0.9% 10 Ml Syringe) 10 ml IVP PRN PRN PRN Reason: NEEDED PER PROVIDER ORDERS Sodium Chloride (Sodium Chloride Flush 0.9% 10 Ml Syringe) 10 ml IVP Q8H ALPESH Pnv No.95/Ferrous Fum/Folic AC [ Tablet] 1 tab PO DAILY 03/08/22 Allergies/Adverse Reactions: Allergies Allergy/AdvReac Type Severity Reaction Status Date / Time Sulfa (Sulfonamide Allergy Intermediate Hives Verified 05/11/22 02:46 Antibiotics) Anes History & Medical History - Anesthetic History Anesthesia Complications: reports: No previous complications - Medical History Cardiovascular: reports: None Pulmonary: reports: None Gastrointestinal: reports: None Urinary: reports: None Neuro: reports: None Musculoskeletal: reports: None Endocrine/Autoimmune: reports: Other Blood Disorders: reports: None Skin: reports: None Smoking Status: Never smoker Psychosocial: reports: No issues indicated History of Cancer?: No - Surgical History Orthopedic: reports: Other (orif left ankle) - Obstetrical History : 4 Parity: 2 Events: reports: None Complications: reports: None Exam General: Alert, Oriented x3, Cooperative, No acute distress Dental: WNL Mouth Openin Fingerbreadth Neck Mobility: Normal Mallampati classification: II Thyromental Distance: 4-6 cm Mental/Cognitive Status: Alert/Oriented X3, Normal for patient Plan Anesthesia Type: Epidural Consent for Procedure(s) Verified and Reviewed: Yes Code Status: Attempt Resuscitation ASA classification: 2-Mild systemic disease Is this case an emergency?: No
[2022-08-16] MEDS ORDERED: ONDANSETRON 4 MG/2 ML VIAL ONE (18:34)
[2022-08-16] MEDS ORDERED: WITCH HAZEL/GLYCERIN 1 PAD TOP PRN (19:42)
[2022-08-16] MEDS ORDERED: HYDROCORTISONE 1% CREAM 28 GM TUBE PR PRN (19:42)
--- NOTE | 2022-08-16 19:51 | DELIVERY NOTE ---
Delivery Note - Labor Labor: positive: Augmented by ARM, Induced by oxytocin - Delivery Method Infant Delivery Method: positive: Spontaneous vaginal delivery - Presentation Presentation: positive: Vertex, MALISSA - left occiput anterior - Nuchal Cord Nuchal Cord: positive: Present (Tight nuchal x2 reduced after delivery) - Anesthetic Anesthetic Type: - Amniotic Fluid Description Amniotic Fluid Description: positive: Clear - Episiotomy Type Episiotomy Type: positive: None - Laceration Laceration: positive: None - Delivery Outcome Delivery Outcome: positive: Livebirth - [place]: positive: Placed in direct skin contact with mother, Bulb syringe, Stimulated, Warmed, [place] used [place] sex: positive: Male - Cord Cord: positive: 3 vessels - Placenta Placenta: positive: Intact - Estimated Blood Loss Estimated Blood Loss (in cc): 100 - Post Delivery Events Post Delivery Events: positive: Shoulder dystocia - Delivery Comments (Free Text/Narrative) Delivery Comments (Free Text/Narrative): /+2. Maternal pushing with good efforts. Head delivered MALISSA. Body not easily delivered with gentle traction. Head retraction noted and shoulder dystocia identified. Tripp manuever. Posterior arm delivered. Body then delivered. Time from head to delivery 60 seconds. placed on mother's abdomen. Delayed cord clamping. Fundus firm. Placenta delivered spontaneously and intact, 3vc. Vagina and perineum inspected, no lacerations. QBL 100cc. Apgars 8/9. 3389g. Family doing well and bonding at bedside.
[2022-08-17] MEDS: ACETAMINOPHEN 500 MG TABLET PO SCH ×2 (06:43→09:51)
[2022-08-17] MEDS: DOCUSATE SODIUM 100 MG CAPSULE PO SCH ×2 (06:44→09:51)
[2022-08-17] MEDS: IBUPROFEN 800 MG TABLET PO SCH ×2 (06:44→09:51)
--- NOTE | 2022-08-17 15:57 | Discharge Plan ---
Discharge Plan Problem Reviewed?: Yes Disposition: Home, Self Care Condition: Good Diet: Regular Activity Restrictions: No Restrictions Shower Restrictions: No Driving Restrictions: No Weight Bearing: Full Weight Instruction Topics: Depression , Vaginal After, No Smoking: If you smoke, Please STOP! Call for help. Follow-up with: Carey Sandoval PA [Primary Care Provider] - Va Bar DO [Provider Admit Priv/Credential] - 2 Weeks
--- NOTE | 2022-08-17 16:00 | DISCHARGE SUMMARY ---
"Discharge Summary Admit Date: 08/16/22 Discharge Date: 08/17/22 Discharging Provider: Va Bar DO Condition at Discharge: Good Discharge Disposition: Home, Self Care Discharge Facility Name: [facility] - DIAGNOSES Admission Diagnoses: 26yo at 39.2w admitted 08/16 for elective induction of labor. - HPI History of Present Illness: 26yo at 39.2w admitted 08/16 for elective induction of labor. care at [facility], uncomplicated. GBS POS and BMI 46. Ampicillin treated GBS. Pitocin started. AROM. Received epidural. Progressed to 10cm. complicated by nuchal x2 and shoulder dystocia, see delivery notes. Mother and baby doing well and would like discharge to home PPD#1. Comfortable without pain medications. Appropriate lochia. Ambulating. Voiding and BM. Tolerating regular diet. , pumping, and formula feeding. Planning to have tongue tie adjusted with citrus picker. Mood is good. care and depression reviewed. Follow up at [facility] 2 weeks. - CONSULTS | PROCEDURES Consultations: Anesthesia Procedures: Epidural - HOSPITAL COURSE Hospital Course: 26yo at 39.2w admitted 08/16 for elective induction of labor. care at [facility], uncomplicated. GBS POS and BMI 46. Ampicillin treated GBS. Pitocin started. AROM. Received epidural. Progressed to 10cm. complicated by nuchal x2 and shoulder dystocia, see delivery notes. Mother and baby doing well and would like discharge to home PPD#1. Comfortable without pain medications. Appropriate lochia. Ambulating. Voiding and BM. Tolerating regular diet. , pumping, and formula feeding. Planning to have tongue tie adjusted with citrus picker. Mood is good. care and depress ion reviewed. Follow up at [facility] 2 weeks. - ALLERGIES Allergies/Adverse Reactions: Allergies Allergy/AdvReac Type Severity Reaction Status Date / Time Sulfa (Sulfonamide Allergy Intermediate Hives Verified 05/11/22 02:46 Antibiotics) - MEDICATIONS Home Medications: Ambulatory Orders Medication Instructions Recorded Confirmed Pnv No.95/Ferrous Fum/Folic AC 1 tab PO DAILY 03/08/22 05/10/22 [ Tablet] Amox/Clav 875/125 [Augmentin 1 tablet PO Q12H 7 Days #14 tablet 05/11/22 875/125 Tab] HYDROcod/ACETAM 5/325 [[place] 5/325] 1 - 2 tablet PO Q6H PRN #14 tablet 05/11/22 - PHYSICAL EXAM AT DISCHARGE General Appearance: positive: No acute distress Eyes Bilateral: positive: EOMI ENT: positive: No signs of dehydration Neck: positive: Nml inspection Respiratory: positive: No respiratory distress Abdomen: positive: Non-tender Skin: positive: Color nml Extremities: positive: Non-tender Neurologic/Psychiatric: positive: Oriented x3 - LABS Result Diagrams: 08/16/22 08:30 08/16/22 09:42 - QUALITY (Female Hip Fx Only) Was patient sent home on osteoporosis medication?: No - FOLLOW UP Follow Up: 2 weeks - TIME SPENT Time Spent in Discharge (Minutes): 30"
[2022-08-17 16:11] VITALS: BP 126/72
--- NOTE | 2022-08-17 21:08 | Labor Flowsheet ---
Labor Flowsheet Datetime Report Generated by CPN: 08/17/2022 21:08 Datetime: 08/17/2022 15:57 VITAL SIGNS NBP Sys/Lorne[place]/Mean (mmHg): 126 : 72 : 84 Pulse: 93 LaborFlag: Labor Datetime: 08/16/2022 20:19 SpO2 (%): 98 Datetime: 08/16/2022 19:29 Stage 2 Comments: delivery of placenta Datetime: 08/16/2022 19:28 MEDICATIONS Pitocin (milliunits): Increased to @ 999 Medication Comments: post pitocin bolus given Datetime: 08/16/2022 19:24 STAGE 2 Pushing: Urge to Push Pushing Position: Pushing with Contractions Datetime: 08/16/2022 19:23 UTERINE ACTIVITY Monitor Mode: Internal Frequency (min): 1-2 Quality: Strong Duration (sec): 40-80 Pattern: Normal: <= 5 Contractions in 10 Minutes Resting Tone (Palpate): Relaxed Resting Tone IUP (mmHg): 10 Intensity IUP (mmHg): unable to calculate due to pushing efforts - ASSESSMENT A Monitor Mode: Internal Scalp Electrode FHR Baseline Rate : 140 Variability: Moderate 6-25 bpm Accelerations: None Decelerations: Variable Category: Category II Datetime: 08/16/2022 19:21 Pushing Progress: Presenting Part Visible; with Pushing; Pushing Effectively with Contract ions Datetime: 08/16/2022 19:14 [place] Units (mmHg): 135 Datetime: 08/16/2022 19:13 Pain Type: Pressure Pain Location: Perineum VAGINAL EXAM Dilatation (cm): 10.0 Effacement (%): 100 Comfort Measures: Breathing/Relaxation COMMUNICATION Communication: Provider at Bedside Provider Notified (Name): M Cayaybyab MD Notification Reason: Membrane Status Datetime: 08/16/2022 19:08 PATIENT CARE Patient Position/Activity: Left Lateral Datetime: 08/16/2022 19:01 FHR Baseline Changes: No Baseline Change Datetime: 08/16/2022 18:32 Station: -1 Exam by: Maria Guadalupe RN Vaginal Bleeding: Normal Show Cervix, Consistency: Soft Cervix, Position: Anterior Datetime: 08/16/2022 17:30 Comments: varible x1 Datetime: 08/16/2022 17:00 Monitor Interventions for UA: Gol[place] Adjusted Datetime: 08/16/2022 16:05 Epidural Procedure Other: Pump Started Datetime: 08/16/2022 16:00 Contraction Comments: patient sitting for epidural Monitor Interventions for FHR: Ultrasound Adjusted Datetime: 08/16/2022 15:58 Epidural Procedure: Loading Dose Datetime: 08/16/2022 15:50 Epidural Positioning: Sitting Datetime: 08/16/2022 15:48 PROCEDURE TIME OUT Procedure Verify: Correct Patient Identity; Correct Side and Site are Marked; Accurate Procedure Co nsent Form; Agreement on Procedure to be Done; Correct Patient Position; Safety Precautions Based on Patient History or Medication Use ANESTHESIA Anesthesia Plans: Epidural Datetime: 08/16/2022 14:30 PAIN Pain Scale: 5 Datetime: 08/16/2022 13:19 Membrane Status: Ruptured Membranes Rupture Method: Artificial Amniotic Fluid Color: Clear Amniotic Fluid Amount: Moderate Amniotic Fluid Odor: Normal Datetime: 08/16/2022 11:00 Pain Presence: Intermittent
== END 2022-08-17 18:40 | disposition home or self-care (01) | DRG 807 ==
LOC: WFO 07:52 → FBP 07:56 → WFO 10:25
PROVIDERS: ADMIT Obstetrics & Gynecology; ATTEND Obstetrics & Gynecology
PROC: 10907ZC Drainage of Amniotic Fluid, Therapeutic from Products of Conception, Via Natural or Artificial Opening (ICD-10-PCS; principal; 2022-08-16)
PROC: 10E0XZZ Delivery of Products of Conception, External Approach (ICD-10-PCS; 2022-08-16)
PROC: 3E033VJ Introduction of Other Hormone into Peripheral Vein, Percutaneous Approach (ICD-10-PCS; 2022-08-16)
DX: O99.824 Streptococcus B carrier state complicating childbirth (principal); Z37.0 Single live birth; O69.81X0 Labor and delivery complicated by cord around neck, without compression, not applicable or unspecified; O66.0 Obstructed labor due to shoulder dystocia; O99.344 Other mental disorders complicating childbirth; F32.A Depression, unspecified; O99.214 Obesity complicating childbirth; E66.01 Morbid (severe) obesity due to excess calories; Z3A.39 39 weeks gestation of pregnancy; Z22.322 Carrier or suspected carrier of Methicillin resistant Staphylococcus aureus
CPT/HCPCS: 36415; 80053; 85025; 86850; 86900; 86901; A9270; J2210; J7120

== ENCOUNTER 2022-10-01 15:15 | Outpatient (CLI) | payer MEDICAID ==
--- NOTE | 2022-10-01 22:58 | Ultrasound Report ---
PROCEDURE: Pelvic Complete INDICATIONS: OVARIAN CYST TECHNIQUE: Real-time transabdominal scanning was performed of the pelvic organs, with image documentation. COMPARISON: 02/05/2020 FINDINGS: Uterus: Uterus is normal in size at 9.5 x 4.9 x 7.1 cm. The myometrium is homogeneous and there are no masses. Endometrium measures 7.9 mm in combined thickness. Ovaries: The right ovary measures 9.8 x 5.5 x 8.9 cm for a volume of 252 cc The left ovary measures 4.7x1.9x 3.2 cm for a volume of 14.7cc. Left than 12 follicles present in each ovary. There is a thin -walled, unilocular cyst arising from the right ovary measuring 10.4 x 5.9 x 8.1 cm. There are no sep tations, mural nodules, or internal vascular flow. The left ovary has a normal morphology. Other: No free pelvic fluid. IMPRESSION: 1. Stable, large, unilocular right ovarian cyst without suspicious features. However, given size, the right ovary is at risk for torsion. 2. Normal uterus and left ovary. Reviewed by: Marta Trammell MD on 10/01/2022 10:56 PM PDT Approved by: Marta Trammell MD on 10/01/2022 10:56 PM PDT Station ID: [id number]
== END 2022-10-01 15:16 | disposition home or self-care (01) ==
LOC: DI 15:15
PROVIDERS: ATTEND Obstetrics & Gynecology
DX: N83.291 Other ovarian cyst, right side (principal)

== ENCOUNTER 2022-12-22 11:38 | Outpatient (CLI) | payer MEDICAID ==
[2022-12-22 11:54] LABS: BASOPHILS % (AUTO) 0.5 %; EOSINOPHILS # (AUTO) 0.1 10^3/uL (0.0-0.7); EOSINOPHILS % (AUTO) 1.5 %; HCT - HEMATOCRIT 41.9 % (37.0-47.0); HGB - HEMOGLOBIN 13.2 g/dL (12.0-16.0); LYMPHOCYTES # (AUTO) 2.6 10^3/uL (1.5-3.5); LYMPHOCYTES % (AUTO) 29.9 %; MEAN CORPUSCULAR HEMOGLOBIN 28.5 pg (27.0-31.0); MEAN CORPUSCULAR HGB CONC 31.5 g/dL (32.0-36.0); MEAN CORPUSCULAR VOLUME 90.5 fL (81.0-99.0); MONOCYTES # (AUTO) 0.5 10^3/uL (0.0-1.0); MONOCYTES % (AUTO) 5.8 %; NEUTROPHILS # (AUTO) 5.4 10^3/uL (1.5-6.6); NEUTROPHILS % (AUTO) 62.1 %; PLT - PLATELET COUNT 354 10^3/uL (130-450); RED BLOOD COUNT 4.63 10^6/uL (4.20-5.40); RED CELL DISTRIBUTION WIDTH 13.9 % (12.0-15.0); WHITE BLOOD COUNT 8.7 x10^3/uL (4.8-10.8)
== END 2022-12-22 11:39 | disposition home or self-care (01) ==
LOC: LAB 11:38
PROVIDERS: ATTEND Obstetrics & Gynecology
DX: Z01.812 Encounter for preprocedural laboratory examination (principal); N83.201 Unspecified ovarian cyst, right side
CPT/HCPCS: 36415; 85025; 86850; 86900; 86901

== ENCOUNTER 2022-12-23 08:51 | Day surgery (SDC) | payer MEDICAID ==
[2022-12-23 09:15] LABS: HCG UR QUAL NEGATIVE
[2022-12-23] MEDS ORDERED: LACTATED RINGERS 1,000 ML IV ONE ×2 (09:17→13:53)
--- NOTE | 2022-12-23 10:37 | ANESTHESIA ---
Pre-Anesthesia VS, & Labs - Diagnosis desires sterilization, right ovarian cyst - Procedure bilateral salpingectomy, possible right oophrectomy, right cystecomty Vital Signs: Temp Pulse Resp BP Pulse Ox O2 Flow Rate 35.8 C L 83 16 127/77 100 0 12/23/22 09:18 12/23/22 09:18 12/23/22 09:18 12/23/22 09:18 12/23/22 09:18 12/23/22 09:18 Height: 5 ft 7 in Weight (kg): 114.7 kg Body Mass Index: 39.6 BMI Classification: Obese - NPO >8 hours - Is Patient ?: No Home Medications and Allergies Home Medications: Ambulatory Orders No Known Home Medications 12/12/22 No Known Home Medications 12/12/22 Allergies/Adverse Reactions: Allergies Allergy/AdvReac Type Severity Reaction Status Date / Time Sulfa (Sulfonamide Allergy Intermediate Hives Verified 12/23/22 09:33 Antibiotics) Anes History & Medical History - Anesthetic History Anesthesia Complications: reports: No previous complications - Medical History Cardiovascular: reports: None Pulmonary: reports: None Gastrointestinal: reports: None Urinary: reports: None Neuro: reports: None Musculoskeletal: reports: None Endocrine/Autoimmune: reports: None Blood Disorders: reports: None Skin: reports: None Smoking Status: Former smoker (quit 2 years ago) Psychosocial: reports: No issues indicated History of Cancer?: No - Surgical History Orthopedic: reports: Other (left ankle orif) Exam General: Alert, Oriented x3, Cooperative, No acute distress Dental: WNL Mouth Openin Fingerbreadth Neck Mobility: Normal Mallampati classification: II Thyromental Distance: 4-6 cm Mental/Cognitive Status: Alert/Oriented X3, Normal for patient Plan Anesthesia Type: General Consent for Procedure(s) Verified and Reviewed: Yes Code Status: Attempt Resuscitation ASA classification: 2-Mild systemic disease Is this case an emergency?: No
[2022-12-23] MEDS ORDERED: NALOXONE 0.4 MG/ML VIAL IVP PRN (10:40)
[2022-12-23] MEDS ORDERED: ONDANSETRON 4 MG/2 ML VIAL IVP PRN (10:40)
[2022-12-23] MEDS ORDERED: fentaNYL 100 MCG/2 ML VIAL IVP PRN (10:40)
[2022-12-23] MEDS ORDERED: ATROPINE ABBOJECT 1 MG/10 ML SYRINGE IVP PRN (10:40)
[2022-12-23] MEDS ORDERED: HYDROmorphone 0.5 MG/0.5 ML SYRINGE IVP PRN (10:40)
[2022-12-23] MEDS ORDERED: MORPHINE 2 MG/ML CARPUJECT IVP PRN (10:40)
[2022-12-23] MEDS ORDERED: PROPOFOL 200 MG/20 ML VIAL IVP ONE ×2 (10:49→13:38)
[2022-12-23] MEDS ORDERED: MIDAZOLAM 2 MG/2 ML VIAL ONE (10:49)
[2022-12-23] MEDS ORDERED: ROCURONIUM 50 MG/5 ML VIAL ONE ×2 (10:49→11:36)
[2022-12-23] MEDS ORDERED: fentaNYL 100 MCG/2 ML VIAL ONE ×3 (10:49→12:36)
[2022-12-23] MEDS ORDERED: BUPIVACAINE 0.5%-EPI 1:200000 PF 30 ML VIAL ONE (10:52)
[2022-12-23] MEDS ORDERED: LACTATED RINGERS 1,000 ML IV SCH (11:00)
[2022-12-23] MEDS ORDERED: ONDANSETRON 4 MG/2 ML VIAL ONE (11:05)
[2022-12-23] MEDS ORDERED: DEXAMETHASONE 4 MG/ML VIAL ONE (11:05)
[2022-12-23] MEDS ORDERED: BUPIVACAINE 0.5%-EPI 1:200000 PF 30 ML VIAL SUBQ ONE ×2 (12:48)
[2022-12-23] MEDS ORDERED: SUGAMMADEX 200 MG/2 ML VIAL IVP ONE (13:34)
[2022-12-23] MEDS ORDERED: KETOROLAC 30 MG/ML VIAL ONE (13:37)
[2022-12-23] MEDS ORDERED: HYDROcod/ACETAM 5/325 MG TABLET PO PRN (14:15)
--- NOTE | 2022-12-23 14:15 | OPERATIVE REPORT ---
Operative Report - General Procedure Date: 12/23/22 Planned Procedure: Bilateral salpingectomy, right ovarian cystectomy, possible right oophorectomy Pre-Op Diagnosis: Desires sterility, right ovarian cyst, pelvic pain Procedure Performed: Laparoscopic bilateral salpingectomy and paratubal cystectomy. Post Op Diagnosis: Status post bilateral salpingectomy and paratubal cystectomy - Procedure Note Primary Surgeon: Bill Caldwell MD Secondary Surgeon: BOBBY Arciniega Anesthesia Provider: Tricia Middleton CRNA Anesthesia Technique: General ET tube Pathology: Bilateral fallopian tubes Paratubal cyst IV Fluids (mL): 1,700 Estimated Blood Loss (mL): 20 Findings: Normal-appearing uterus and ovaries. Large right adnexal cyst. Complications: None - Other Other Information/Narrative: Prior to surgery, we discussed the risks, alternatives, benefits to tubal ligation. We discussed long-acting control such as IUDs and implants. We had discussion about partner vasectomy and the pros and cons to this including a smaller surgery, and easier recovery. We discussed the general risk of surgery including infection, bleeding, damage to other organs, needing a larger incision. Specific to tubal ligation, we discussed the risk of regret, and discussed that regret is greater in those under 30, without children, and not in stable relationships. Patient says she is confident in her decision to not have any more children. We also discussed the risk of failure, and that less than 1/100 tubal ligation fail, but if it did, she would be at increased risk of ectopic . Patient desires to proceed with bilateral tubal ligation. Patient was taken to the OR and placed in the dorsal lithotomy position using g reat white stirrups after adequate anesthesia was obtained. Patient was prepped and draped in the usual fashion. A bivalve speculum was used to visualize the cervix and a uterine manipulator was placed after uterosacral injection of local anesthesia. 2 mL of Marcaine was used below the umbilicus. An 11 blade scalpel was used to incise the skin. Direct visual entry was used to place the infrau mbilical trocar. Upon entering the peritoneal cavity, low flow was used to ensure appropriate positioning. Upon visualization of the abdominal cavity, high flow was then initiated. 2 additional trocars was placed under visualization in a similar fashion in the right and left lower quadrants. Upon entry into the abdomen, a large right adnexal cyst was noted. Pelvic washings were obtained and sent for cytology. The cyst was in close proximity to the ovary, but did not appear connected. Due to its size, its relation to the uterus was not visualized. It was in close proximity to the IP ligament, so decision was made to incise the upper part of the cyst cavity away from any blood vessels and dissect the cyst out of the cavity. After carefully dissecting it from the surrounding tissue with a combination of blunt and sharp dissection, we attempted place this in an Endo Catch bag by placing replacing a 5 mm port for a 10 mm port. This is too large to fit in the bag, so we elevated the cyst with a grasper and drained of the cyst with an aspiration needle avoiding spillage until it would fit inside the bag. At that point the bag was drawn through the trocar site and drained outside the body as we gradually withdrew the cyst in bag from the port site. At that point we returned to the abdomen and visualized the route of the tube which was dilated and stretched from the paratubal cyst. At this point, we could clearly delineate the structures between the ovary, IP ligament and the mesosalpinx and were able to grasp it with an atraumatic grasper. The mesosalpinx was cauterized and cut with a Ligasure device and dissected up the level of the cornua where it was transected then removed from the body. Attention was then turned to the left fallopian tube which was then removed by grasping the fimbriated end, cutting coagulated with LigaSure and marking of the medial salpinx to the level of the cornea or as transected then removed from the abdomen. A Mark-Senia device was then placed through the 10 mm port site, and an 0 Vicryl was used to close the 10 mm defect. The abdomen was reviewed for hemostasis, and a healthy-appearing liver was noted. The trocars were then removed, and abdomen was evacuated of gas. The trocar sites were then closed with a 4-0 Monocryl in a sub-cuticular fashion and covered with Dermabond. Pa instruments removed from the vagina. Tient was taken to the PACU in stable condition. I appreciate the assistance of [Dr. Walker] during this procedure, and the assistance in retraction, visualization, dissection, and overall assistance during the case were instrumental to the patient's wellbeing.
[2022-12-23 15:19] VITALS: O2SAT 98
[2022-12-23] MEDS ORDERED: HYDROcod/ACETAM 5/325 MG TABLET ONE (15:32)
[2022-12-23 15:38] VITALS: BP 146/90
--- NOTE | 2022-12-23 16:35 | ANESTHESIA POST OP EVALUATION ---
Anesthesia Post Eval - Post Anesthesia Eval Vitals: Last Vital Signs Temp 35.8 C L 12/23/22 15:31 Pulse 85 12/23/22 15:31 Resp 16 12/23/22 15:31 BP 146/90 H 12/23/22 15:31 Pulse Ox 98 12/23/22 15:31 O2 Flow Rate 0 12/23/22 09:18 CV Function Including HR & BP: Stable Pain Control: Satisfactory Nausea & Vomiting: Negative Mental Status: Baseline Respiratory Status: Airway Patent Hydration Status: Satisfactory Anesthesia Complications: None
== END 2022-12-23 08:52 | disposition home or self-care (01) ==
LOC: SDS 08:51
PROVIDERS: ATTEND Obstetrics & Gynecology
PROC: 0UB54ZZ Excision of Right Fallopian Tube, Percutaneous Endoscopic Approach (ICD-10-PCS; 2022-12-23)
PROC: 0UT74ZZ Resection of Bilateral Fallopian Tubes, Percutaneous Endoscopic Approach (ICD-10-PCS; principal; 2022-12-23 10:30)
DX: Z30.2 Encounter for sterilization (principal); N83.8 Other noninflammatory disorders of ovary, fallopian tube and broad ligament; E66.9 Obesity, unspecified; Z68.39 Body mass index [BMI] 39.0-39.9, adult; Z87.891 Personal history of nicotine dependence
CPT/HCPCS: 58661; 58662; 81025; A9270; J7120